=== PATIENT | male | born 1970 | race African-American/Black ===

== ENCOUNTER 2016-09-26 02:39 | Inpatient (IN) | payer OTHER ==
[~2016-09-26] VITALS: Ht 180.3 cm; Wt 131.8 kg
[~2016-09-26 02:39] MED LIST: ADVAIR 250/501 DISK IH; ADVAIR HFA120 INHAL1 IH; ASPIR-LOW81 MG PO; ASPIRIN81 M2 PO; AUGMENTIN875 MG PO; BACLOFEN10 MG PO; CALAN SR,COVER240 MG PO; CLARITIN,ALAVAR10 MG PO; CLONIDINE HCL0.1 MG PO; DAILY VALUE1 EACH PO; DICLOFENAC SODI75 MG PO; DOCUSATE SODIU100 MG PO; DULOXETINE HCL30 MG PO; ELIQUIS5 MG PO; GLUCOPHAGE500 MG PO; HYDROCHLOROTHIA25 MG PO; HYDROCODON-ACE1 EAC7 PO; IPRATROPIUM BRO15 ML BOTH NARES; ISORDIL,SORBITR40 M3 PO; LABETALOL HCL200 MG PO; LASIX20 MG PO; LISINOPRIL10 MG PO; LISINOPRIL40 MG PO; LO-DOSE ASPIRIN81 M1 PO; LOPRESSOR25 MG PO; LOPRESSOR50 MG PO; LYRICA75 MG PO; METAMUCIL0.52 GM PO; METFORMIN HCL500 MG PO; METHYLPREDNISOL32 MG PO; METOPROLOL TAR100 MG PO; METOPROLOL TART25 MG PO; MOTRIN400 MG PO; NITROSTAT0.4 MG SL; NOHOMEMEDS; NORCO 5/3251 TABLET PO; OMEPRAZOLE40 M1 PO; OXYCODONE-APAP1 EACH PO; PANTOPRAZOLE SO40 MG PO; PERCOCET 5/31 TABLET PO; PRAVASTATIN SOD20 MG PO; PRAVASTATIN SOD40 MG PO; PREDNISONE20 MG PO; PREDNISONE50 MG PO; PROPRANOLOL HC120 MG PO; PROTONIX40 MG PO; SINGULAIR10 MG PO; TRAMADOL HCL50 MG PO; TYLENOL EXTRA500 MG PO; TYLENOL WITH C1 EACH PO; VALIUM5 MG PO; VENTOLIN HFA18 GM IH; VERAPAMIL HCL240 MG PO; XANAX0.25 MG PO; ZOFRAN8 MG PO; ZYRTEC10 M3 PO
[2016-09-26 03:13] LABS: HEMATOCRIT 38.5 % (38.0-50.0); MCH 27.5 PG (29.0-34.0); MCHC 32.2 G/DL (30.0-36.0); MCV 85.4 FL (86-99); MEAN PLAT.VOLUME 10.6 uM^3 (9.0-12.4); PLATELET COUNT 331 K/uL (156-360); RBC DIS.WIDTH-CV 16.7 % (11.8-14.6); RBC DIS.WIDTH-SD 51.9 % (39-53); RED BLOOD COUNT 4.51 M/uL (4.00-5.50); WHITE BLOOD COUNT 5.7 K/uL (4.1-10.2)
[2016-09-26 03:26] LABS: CHLORIDE 105 mEq/L (99-109); POTASSIUM 3.7 mEq/L (3.7-5.4); SODIUM 138 mEq/L (136-147)
[2016-09-26 03:28] LABS: GLUCOSE 130 mg/dL (70-99)
[2016-09-26 03:30] LABS: ANION GAP 10 MEQ/L (2-14); TOTAL BILIRUBIN 0.9 mg/dL (0.0-1.0)
[2016-09-26 03:32] LABS: ALKALINE PHOSPHATASE 92 IU/L (3-129); GFR ESTIMATE (CALCULATED) > 59 mL/min/
[2016-09-26 03:33] LABS: UREA NITROGEN (BUN) 23 mg/dL (9-23)
[2016-09-26 03:35] LABS: LIPASE 48 U/L (1.0-51.0)
[2016-09-26 03:36] LABS: TROP-I INTERPRETATION NEGATIVE; TROPONIN-I 0.07 ng/mL (0.0-0.30)
[2016-09-26 04:06] LABS: INFLUENZA A VIRAL ANTIGEN NEGATIVE; INFLUENZA B VIRAL ANTIGEN NEGATIVE
[2016-09-26 04:52] LABS: ANISOCYTOSIS 2+; EOSINOPHIL (%) 4.2 % (0-5); EOSINOPHIL COUNT 0.2 K/uL (0-0.3); HEMATOLOGY COMMENT 1 REV; IMMATURE GRANULOCYTE (%) 0.2 % (0.0-0.7); IMMATURE GRANULOCYTE COUNT 0.1 K/uL; LYMPHOCYTE COUNT 1.6 K/uL (1.0-2.8); MACROCYTES 1+; MICROCYTOSIS 1+; MONOCYTE (%) 7.4 % (3-12); MONOCYTE COUNT 0.4 K/uL (0-0.8); NEUTROPHIL (%) 60.2 % (45-76); NEUTROPHIL COUNT 3.4 K/uL (1.8-6.4); OVALOCYTES 1+; PLAT.SUFFICIENCY ADEQUATE
[2016-09-26] MEDS ORDERED: ASPIR 8181 M1 PO (05:53)
[2016-09-26] MEDS ORDERED: XANAX0.25 MG PO (05:54)
[2016-09-26] MEDS ORDERED: CORICIDIN HBP1 EACH PO (05:56)
[2016-09-26] MEDS ORDERED: FUROSEMIDE20 MG PO (07:24)
[2016-09-26] MEDS ORDERED: ONE DAILY TABL1 EAC1 PO (07:24)
[2016-09-26] MEDS ORDERED: LEVEMIR FL100 UNIT/1 SC (07:24)
[2016-09-26 08:57] VITALS: BP 165/97
[2016-09-26 11:41] VITALS: BP 144/99
[2016-09-26 12:20] LABS: TROP-I INTERPRETATION NEGATIVE; TROPONIN-I 0.06 ng/mL (0.0-0.30)
[2016-09-26 18:16] LABS: INTERNAL CONTROL VALID? YES
[2016-09-26 18:45] LABS: TROP-I INTERPRETATION NEGATIVE; TROPONIN-I 0.08 ng/mL (0.0-0.30)
[2016-09-26 21:19] LABS: POINT-OF-CARE METER ID UU14162513
[2016-09-26 21:30] VITALS: BP 125/73
[2016-09-27 03:16] VITALS: BP 123/79
[2016-09-27 07:10] LABS: HEMATOCRIT 39.9 % (38.0-50.0); MCH 27.1 PG (29.0-34.0); MCHC 31.1 G/DL (30.0-36.0); MCV 87.3 FL (86-99); MEAN PLAT.VOLUME 10.8 uM^3 (9.0-12.4); PLATELET COUNT 316 K/uL (156-360); RBC DIS.WIDTH-SD 53.6 % (39-53); RED BLOOD COUNT 4.57 M/uL (4.00-5.50); WHITE BLOOD COUNT 6.4 K/uL (4.1-10.2)
[2016-09-27 07:16] LABS: EOSINOPHIL (%) 1.6 % (0-5); EOSINOPHIL COUNT 0.1 K/uL (0-0.3); IMMATURE GRANULOCYTE (%) 0.2 % (0.0-0.7); LYMPHOCYTE COUNT 1.7 K/uL (1.0-2.8); MONOCYTE (%) 7.8 % (3-12); MONOCYTE COUNT 0.5 K/uL (0-0.8); NEUTROPHIL COUNT 4.1 K/uL (1.8-6.4)
[2016-09-27 07:33] LABS: ANION GAP 8 MEQ/L (2-14); CHLORIDE 100 MEQ/L (99-109); GFR ESTIMATE (CALCULATED) > 59 mL/min/; POTASSIUM 3.9 MEQ/L (3.7-5.4); SAMPLE HEMOLYSIS CHECK 0; SAMPLE ICTERIC CHECK 0; SAMPLE LIPEMIA CHECK 0; SODIUM 137 MEQ/L (136-147); UREA NITROGEN (BUN) 21 mg/dL (9-23)
[2016-09-27 07:35] LABS: GLUCOSE 79 mg/dL (70-99)
[2016-09-27 07:39] LABS: TROP-I INTERPRETATION NEGATIVE; TROPONIN-I 0.08 ng/mL (0.0-0.30)
[2016-09-27 08:16] VITALS: BP 151/86
[2016-09-27 08:40] LABS: POINT-OF-CARE METER ID UU14162513
[2016-09-27 12:12] VITALS: BP 99/63
[2016-09-27 12:58] LABS: POINT-OF-CARE METER ID UU14162513
[2016-09-27 16:18] VITALS: BP 117/69
[2016-09-27 17:37] LABS: POINT-OF-CARE METER ID UU14162513
[2016-09-27 21:08] VITALS: BP 110/71
[2016-09-27 23:39] VITALS: BP 104/58
[2016-09-28 04:13] VITALS: BP 125/71
[2016-09-28 07:26] VITALS: BP 113/72
[2016-09-28 12:33] VITALS: BP 95/57
[2016-09-28] MEDS ORDERED: ELIQUIS5 MG PO (16:12)
[2016-09-28 16:37] VITALS: BP 94/52
[2016-09-28 20:08] VITALS: BP 90/52
[2016-09-28 23:35] VITALS: BP 122/77
[2016-09-29 04:49] VITALS: BP 125/74
[2016-09-29 05:33] LABS: HEMATOCRIT 37.3 % (38.0-50.0); MCH 27.8 PG (29.0-34.0); MCHC 32.2 G/DL (30.0-36.0); MCV 86.3 FL (86-99); MEAN PLAT.VOLUME 11.8 uM^3 (9.0-12.4); PLATELET COUNT 323 K/uL (156-360); RBC DIS.WIDTH-CV 16.2 % (11.8-14.6); RBC DIS.WIDTH-SD 51.5 % (39-53); RED BLOOD COUNT 4.32 M/uL (4.00-5.50); WHITE BLOOD COUNT 5.8 K/uL (4.1-10.2)
[2016-09-29 05:41] LABS: POINT-OF-CARE METER ID UU13113717
[2016-09-29 08:30] VITALS: BP 139/87
[2016-09-29 11:30] VITALS: BP 131/77
[2016-09-29 11:37] LABS: POINT-OF-CARE METER ID UU13113717
[2016-09-29 12:20] VITALS: BP 131/77
[2016-09-29] MEDS ORDERED: PRAVASTATIN SOD40 MG PO (12:33)
[2016-09-29] MEDS ORDERED: FLONASE16 G1 BOTH NARES (12:33)
[2016-09-29] MEDS ORDERED: BENTYL20 MG PO (12:33)
[2016-09-29] MEDS ORDERED: FUROSEMIDE40 MG PO (12:33)
[2016-09-29] MEDS ORDERED: CLARITIN,ALAVAR10 MG PO (12:34)
[2016-09-29] MEDS ORDERED: MAALOX ADVANCE355 ML PO (12:34)
[2016-09-30 12:51] LABS: POC NON-PRINT COM 1 ND
== END 2016-09-29 14:07 | disposition home or self-care (01) | DRG 292 ==
LOC: EME 02:39 → EDOF 06:35 → 5WEST 06:35 → 3EAST 09-27 21:06
PROVIDERS: Emergency Medicine; Hospitalist; Internal Medicine; Internal Medicine Cardiovascular Disease; Specialist
DX: I50.33 Acute on chronic diastolic (congestive) heart failure (principal); I13.0 Hypertensive heart and chronic kidney disease with heart failure and stage 1 through stage 4 chronic kidney disease, or unspecified chronic kidney disease; I42.2 Other hypertrophic cardiomyopathy; K56.7 Ileus, unspecified; J90 Pleural effusion, not elsewhere classified; K92.1 Melena; Z68.42 Body mass index [BMI] 45.0-49.9, adult; G47.33 Obstructive sleep apnea (adult) (pediatric); I27.2 Other secondary pulmonary hypertension; F32.9 Major depressive disorder, single episode, unspecified; E11.9 Type 2 diabetes mellitus without complications; R07.9 Chest pain, unspecified; R10.9 Unspecified abdominal pain; J44.9 Chronic obstructive pulmonary disease, unspecified; K21.9 Gastro-esophageal reflux disease without esophagitis; G89.29 Other chronic pain; F12.90 Cannabis use, unspecified, uncomplicated; N18.9 Chronic kidney disease, unspecified; E66.01 Morbid (severe) obesity due to excess calories; I48.91 Unspecified atrial fibrillation; I12.9 Hypertensive chronic kidney disease with stage 1 through stage 4 chronic kidney disease, or unspecified chronic kidney disease; E78.5 Hyperlipidemia, unspecified; Z91.048 Other nonmedicinal substance allergy status; Z88.1 Allergy status to other antibiotic agents; E87.70 Fluid overload, unspecified; D64.9 Anemia, unspecified
CPT/HCPCS: 71020; 71250; 74020; 74176; 80048; 80053; 82150; 82272; 82607; 82728; 82948; 83690; 83735; 83880; 84443; 84466; 84484; 85025; 85027; 87502; 93005; 94640; 94640 76; 99202; 99281; 99285; G0378; J1170; J1815; J1885; J1940; J2765; J3010

== ENCOUNTER 2016-10-10 21:53 | Emergency (ER) | payer OTHER ==
[~2016-10-10] VITALS: Ht 175.3 cm; Wt 133.0 kg
[~2016-10-10 21:53] MED LIST changes: +ASPIR 8181 M1 PO; +BENTYL20 MG PO; +CORICIDIN HBP1 EACH PO; +FLONASE16 G1 BOTH NARES; +FUROSEMIDE20 MG PO; +FUROSEMIDE40 MG PO; +LEVEMIR FL100 UNIT/1 SC; +MAALOX ADVANCE355 ML PO; +ONE DAILY TABL1 EAC1 PO
[2016-10-10 22:22] LABS: HEMATOCRIT 39.3 % (38.0-50.0); MCH 27.9 PG (29.0-34.0); MCHC 32.6 G/DL (30.0-36.0); MCV 85.8 FL (86-99); MEAN PLAT.VOLUME 10.6 uM^3 (9.0-12.4); PLATELET COUNT 274 K/uL (156-360); RBC DIS.WIDTH-CV 15.8 % (11.8-14.6); RBC DIS.WIDTH-SD 48.2 % (39-53); RED BLOOD COUNT 4.58 M/uL (4.00-5.50); WHITE BLOOD COUNT 4.8 K/uL (4.1-10.2)
[2016-10-10 22:31] LABS: CHLORIDE 102 mEq/L (99-109); POTASSIUM 4.3 mEq/L (3.7-5.4); SODIUM 138 mEq/L (136-147)
[2016-10-10 22:32] LABS: GLUCOSE 130 mg/dL (70-99)
[2016-10-10 22:34] LABS: ANION GAP 9 MEQ/L (2-14)
[2016-10-10 22:36] LABS: GFR ESTIMATE (CALCULATED) > 59 mL/min/
[2016-10-10 22:37] LABS: UREA NITROGEN (BUN) 17 mg/dL (9-23)
[2016-10-10 22:43] LABS: TROP-I INTERPRETATION NEGATIVE; TROPONIN-I 0.06 ng/mL (0.0-0.30)
[2016-10-10 23:24] LABS: LIPASE 35 U/L (1.0-51.0)
[2016-10-11 00:49] LABS: INFLUENZA A VIRAL ANTIGEN POSITIVE; INFLUENZA B VIRAL ANTIGEN NEGATIVE
[2016-10-11] MEDS ORDERED: TAMIFLU75 MG PO ×2 (00:59→22:44)
[2016-10-11] MEDS ORDERED: VENTOLIN HFA18 GM IH (01:00)
[2016-10-11 01:23] LABS: TROP-I INTERPRETATION NEGATIVE; TROPONIN-I 0.06 ng/mL (0.0-0.30)
[2016-10-11 01:58] VITALS: BP 151/102
[2016-10-11] MEDS ORDERED: PRAVASTATIN SOD40 MG PO (22:42)
[2016-10-11] MEDS ORDERED: FLONASE16 G1 BOTH NARES (22:43)
[2016-10-11] MEDS ORDERED: CLARITIN,ALAVAR10 MG PO (22:43)
== END 2016-10-11 01:58 | disposition home or self-care (01) ==
LOC: EME 21:53
PROVIDERS: Emergency Medicine
DX: J10.1 Influenza due to other identified influenza virus with other respiratory manifestations (principal); N18.9 Chronic kidney disease, unspecified; I10 Essential (primary) hypertension; E11.9 Type 2 diabetes mellitus without complications; I50.9 Heart failure, unspecified; Z88.6 Allergy status to analgesic agent
CPT/HCPCS: 71020; 80048; 83690; 84484; 85027; 87502; 93005; 94640; 99281; 99284

== ENCOUNTER 2016-10-11 18:23 | Inpatient (IN) | payer OTHER ==
[~2016-10-11] VITALS: Ht 180.3 cm; Wt 117.0 kg
[~2016-10-11 18:23] MED LIST changes: +TAMIFLU75 MG PO
[2016-10-11 21:41] LABS: CHLORIDE 101 mEq/L (99-109); POTASSIUM 4.4 mEq/L (3.7-5.4); SODIUM 137 mEq/L (136-147)
[2016-10-11 21:42] LABS: HEMATOCRIT 39.9 % (38.0-50.0); MCH 27.5 PG (29.0-34.0); MCHC 33.1 G/DL (30.0-36.0); MCV 83.1 FL (86-99); MEAN PLAT.VOLUME 10.5 uM^3 (9.0-12.4); PLATELET COUNT 243 K/uL (156-360); RBC DIS.WIDTH-CV 15.9 % (11.8-14.6); RBC DIS.WIDTH-SD 47.5 % (39-53); WHITE BLOOD COUNT 6.3 K/uL (4.1-10.2)
[2016-10-11 21:43] LABS: GLUCOSE 112 mg/dL (70-99)
[2016-10-11 21:44] LABS: ANION GAP 11 MEQ/L (2-14)
[2016-10-11 21:47] LABS: GFR ESTIMATE (CALCULATED) > 59 mL/min/
[2016-10-11 21:48] LABS: UREA NITROGEN (BUN) 15 mg/dL (9-23)
[2016-10-11 21:54] LABS: TROP-I INTERPRETATION NEGATIVE
[2016-10-11] MEDS ORDERED: PRAVASTATIN SOD40 MG PO (22:42)
[2016-10-11] MEDS ORDERED: CLARITIN,ALAVAR10 MG PO (22:43)
[2016-10-11] MEDS ORDERED: FLONASE16 G1 BOTH NARES (22:43)
[2016-10-11] MEDS ORDERED: TAMIFLU75 MG PO (22:44)
[2016-10-12 02:44] VITALS: BP 147/95
[2016-10-12 04:21] LABS: TROP-I INTERPRETATION NEGATIVE; TROPONIN-I 0.08 ng/mL (0.0-0.30)
[2016-10-12 04:24] LABS: HDL CHOLESTEROL 24 MG/DL (Desirable>=40); LDL CHOLESTEROL 100 mg/dL (Desirable<100); NON-HDL CHOLESTEROL 120 mg/dL (Desirable<160); TOTAL CHOLESTEROL 144 mg/dL (Desirable<200); TRIGLYCERIDES 102 MG/DL (Normal: <150)
[2016-10-12 04:43] VITALS: BP 146/88
[2016-10-12 06:44] LABS: Estimated Average Glucose 151 mg/dL (70-123); HEMOGLOBIN A1c (GLYCOHEMOGLOB) 6.9 % HGB (Below 5.7)
[2016-10-12 08:33] LABS: POINT-OF-CARE METER ID UU14162513
[2016-10-12 10:08] LABS: TROP-I INTERPRETATION NEGATIVE; TROPONIN-I 0.07 ng/mL (0.0-0.30)
[2016-10-12 11:17] LABS: POINT-OF-CARE METER ID UU14162513
[2016-10-12 11:40] LABS: HEMATOCRIT 40.6 % (38.0-50.0); MCH 27.2 PG (29.0-34.0); MCHC 31.5 G/DL (30.0-36.0); MCV 86.2 FL (86-99); MEAN PLAT.VOLUME 11.1 uM^3 (9.0-12.4); PLATELET COUNT 259 K/uL (156-360); RBC DIS.WIDTH-CV 16.2 % (11.8-14.6); RBC DIS.WIDTH-SD 50.4 % (39-53); RED BLOOD COUNT 4.71 M/uL (4.00-5.50); WHITE BLOOD COUNT 5.3 K/uL (4.1-10.2)
[2016-10-12 12:05] LABS: ANION GAP 9 MEQ/L (2-14); CHLORIDE 99 MEQ/L (99-109); POTASSIUM 3.8 MEQ/L (3.7-5.4); SAMPLE HEMOLYSIS CHECK 0; SAMPLE ICTERIC CHECK 0; SAMPLE LIPEMIA CHECK 0; SODIUM 135 MEQ/L (136-147)
[2016-10-12 12:10] LABS: GFR ESTIMATE (CALCULATED) > 59 mL/min/; GLUCOSE 141 mg/dL (70-99); UREA NITROGEN (BUN) 15 mg/dL (9-23)
[2016-10-12 12:52] VITALS: BP 128/83
[2016-10-12 15:13] LABS: ADD MIUA? YES; BILIRUBIN NEGATIVE; BLOOD NEGATIVE; COLOR YELLOW ((YELLOW)); GLUCOSE (STRIP) NEGATIVE; KETONES NEGATIVE; LEUKOCYTES NEGATIVE; NITRITE NEGATIVE; PROTEIN (STRIP) 100; SPECIFIC GRAVITY 1.012 (1.000-1.030)
[2016-10-12 15:30] LABS: BACTERIA NONE SEEN /HPF; EPITHELIAL CELLS NONE SEEN /HPF; HYALINE CASTS 0-5 /LPF; MUCUS TRACE /LPF; RED BLOOD CELLS 15-20 /HPF (0-5); UCUL ADDED? NO; WHITE BLOOD CELLS 0-5 /HPF (0-5)
[2016-10-12 20:00] VITALS: BP 98/64
[2016-10-12 22:04] VITALS: BP 112/78
[2016-10-12 23:52] VITALS: BP 106/80
[2016-10-13 04:44] VITALS: BP 118/74
[2016-10-13 06:37] LABS: HEMATOCRIT 33.9 % (38.0-50.0); MCH 27.8 PG (29.0-34.0); MCHC 32.2 G/DL (30.0-36.0); MCV 86.5 FL (86-99); MEAN PLAT.VOLUME 11.6 uM^3 (9.0-12.4); PLATELET COUNT 221 K/uL (156-360); RBC DIS.WIDTH-CV 16.3 % (11.8-14.6); RED BLOOD COUNT 3.92 M/uL (4.00-5.50); WHITE BLOOD COUNT 4.1 K/uL (4.1-10.2)
[2016-10-13 07:14] LABS: ALKALINE PHOSPHATASE 70 IU/L (3-129); ANION GAP 8 MEQ/L (2-14); CHLORIDE 100 MEQ/L (99-109); GFR ESTIMATE (CALCULATED) > 59 mL/min/; SAMPLE HEMOLYSIS CHECK 0; SAMPLE ICTERIC CHECK 0; SAMPLE LIPEMIA CHECK 0; SODIUM 134 MEQ/L (136-147); TOTAL BILIRUBIN 1.6 MG/DL (0.0-1.0); UREA NITROGEN (BUN) 18 mg/dL (9-23)
[2016-10-13 07:22] LABS: GLUCOSE 75 mg/dL (70-99); POTASSIUM 4.8 MEQ/L (3.7-5.4)
[2016-10-13 07:44] VITALS: BP 160/98
[2016-10-13 07:56] LABS: POINT-OF-CARE METER ID UU13113698
[2016-10-13 11:00] VITALS: BP 125/75
[2016-10-13 12:28] LABS: POINT-OF-CARE METER ID UU13113698
[2016-10-13 15:43] VITALS: BP 134/84
[2016-10-13 16:07] LABS: POINT-OF-CARE METER ID UU13113698
[2016-10-13 20:30] VITALS: BP 140/72
[2016-10-13 23:08] VITALS: BP 142/86
[2016-10-14 04:04] VITALS: BP 136/98
[2016-10-14 07:08] LABS: HEMATOCRIT 38.3 % (38.0-50.0); MCH 26.9 PG (29.0-34.0); MCHC 31.1 G/DL (30.0-36.0); MCV 86.7 FL (86-99); PLATELET COUNT 261 K/uL (156-360); RBC DIS.WIDTH-CV 16.1 % (11.8-14.6); RBC DIS.WIDTH-SD 50.5 % (39-53); RED BLOOD COUNT 4.42 M/uL (4.00-5.50); WHITE BLOOD COUNT 3.6 K/uL (4.1-10.2)
[2016-10-14 07:19] LABS: EOSINOPHIL (%) 3.1 % (0-5); EOSINOPHIL COUNT 0.1 K/uL (0-0.3); IMMATURE GRANULOCYTE (%) 0.3 % (0.0-0.7); LYMPHOCYTE COUNT 1.2 K/uL (1.0-2.8); MONOCYTE (%) 11.7 % (3-12); MONOCYTE COUNT 0.4 K/uL (0-0.8); NEUTROPHIL (%) 49.7 % (45-76); NEUTROPHIL COUNT 1.8 K/uL (1.8-6.4)
[2016-10-14 07:39] LABS: ANION GAP 8 MEQ/L (2-14); CHLORIDE 101 MEQ/L (99-109); GFR ESTIMATE (CALCULATED) > 59 mL/min/; POTASSIUM 4.2 MEQ/L (3.7-5.4); SAMPLE HEMOLYSIS CHECK 0; SAMPLE ICTERIC CHECK 0; SAMPLE LIPEMIA CHECK 0; SODIUM 135 MEQ/L (136-147); UREA NITROGEN (BUN) 17 mg/dL (9-23)
[2016-10-14 07:44] LABS: POINT-OF-CARE USER ID NUTSLF44
[2016-10-14 07:55] LABS: GLUCOSE 107 mg/dL (70-99)
[2016-10-14 09:20] VITALS: BP 173/101
[2016-10-14 11:51] LABS: POINT-OF-CARE USER ID NUTSLF44
[2016-10-14 12:37] VITALS: BP 174/84
[2016-10-14 16:22] VITALS: BP 189/111
[2016-10-14 18:03] VITALS: BP 156/110
[2016-10-14 19:48] VITALS: BP 163/98
[2016-10-15 00:20] VITALS: BP 189/107
[2016-10-15 02:09] VITALS: BP 168/102
[2016-10-15 04:18] VITALS: BP 140/89
[2016-10-15 06:52] LABS: BASOPHIL COUNT 0.1 K/uL (0-0.1); EOSINOPHIL (%) 1.6 % (0-5); EOSINOPHIL COUNT 0.1 K/uL (0-0.3); IMMATURE GRANULOCYTE (%) 0.2 % (0.0-0.7); LYMPHOCYTE COUNT 1.7 K/uL (1.0-2.8); MCH 28.3 PG (29.0-34.0); MCHC 32.7 G/DL (30.0-36.0); MCV 86.7 FL (86-99); MEAN PLAT.VOLUME 11.3 uM^3 (9.0-12.4); MONOCYTE (%) 11.5 % (3-12); MONOCYTE COUNT 0.5 K/uL (0-0.8); NEUTROPHIL (%) 46.1 % (45-76); NRBC (%) 0.6 /100 WBC (0-0); PLATELET COUNT 265 K/uL (156-360); RBC DIS.WIDTH-CV 15.9 % (11.8-14.6); RBC DIS.WIDTH-SD 49.9 % (39-53); RED BLOOD COUNT 4.27 M/uL (4.00-5.50); WHITE BLOOD COUNT 4.4 K/uL (4.1-10.2)
[2016-10-15 07:24] LABS: ANION GAP 9 MEQ/L (2-14); CHLORIDE 103 MEQ/L (99-109); GFR ESTIMATE (CALCULATED) > 59 mL/min/; GLUCOSE 116 mg/dL (70-99); POTASSIUM 4.4 MEQ/L (3.7-5.4); SAMPLE HEMOLYSIS CHECK 0; SAMPLE ICTERIC CHECK 0; SAMPLE LIPEMIA CHECK 0; SODIUM 138 MEQ/L (136-147); UREA NITROGEN (BUN) 13 mg/dL (9-23)
[2016-10-15 07:40] VITALS: BP 129/79
[2016-10-15 08:02] LABS: POINT-OF-CARE METER ID UU14174216
[2016-10-15 11:45] VITALS: BP 123/83
[2016-10-15 12:09] LABS: POINT-OF-CARE METER ID UU14174216
[2016-10-15] MEDS ORDERED: LEVETIRACETAM500 MG PO (12:24)
[2016-10-15] MEDS ORDERED: EXTRA STRENGTH500 M1 PO (21:17)
== END 2016-10-15 13:40 | disposition home or self-care (01) | DRG 100 ==
LOC: EME 18:23 → EDOF 10-12 01:28 → 5WEST 10-12 02:22 → 4EAST 10-12 11:27 → 5WEST 10-12 11:27 → 4EAST 10-12 11:57
PROVIDERS: Internal Medicine; Nurse Practitioner Family; Physician Assistant
PROC: 5A09357 Assistance with Respiratory Ventilation, Less than 24 Consecutive Hours, Continuous Positive Airway Pressure (ICD-10-PCS; principal; 2016-10-12)
DX: G40.909 Epilepsy, unspecified, not intractable, without status epilepticus (principal); G93.41 Metabolic encephalopathy; I13.0 Hypertensive heart and chronic kidney disease with heart failure and stage 1 through stage 4 chronic kidney disease, or unspecified chronic kidney disease; I50.32 Chronic diastolic (congestive) heart failure; I42.2 Other hypertrophic cardiomyopathy; I48.92 Unspecified atrial flutter; I48.2 Chronic atrial fibrillation; J10.1 Influenza due to other identified influenza virus with other respiratory manifestations; J44.9 Chronic obstructive pulmonary disease, unspecified; E11.22 Type 2 diabetes mellitus with diabetic chronic kidney disease; G47.33 Obstructive sleep apnea (adult) (pediatric); R07.89 Other chest pain; N18.9 Chronic kidney disease, unspecified; I27.2 Other secondary pulmonary hypertension; R10.31 Right lower quadrant pain; R10.32 Left lower quadrant pain; E78.5 Hyperlipidemia, unspecified; E66.9 Obesity, unspecified; Z68.35 Body mass index [BMI] 35.0-35.9, adult; Z86.74 Personal history of sudden cardiac arrest; Z79.01 Long term (current) use of anticoagulants; Z79.82 Long term (current) use of aspirin; Z88.1 Allergy status to other antibiotic agents; Z88.5 Allergy status to narcotic agent
CPT/HCPCS: 70450; 71010; 71020; 72125; 73030; 74176; 76705; 80048; 80053; 80061; 81003; 82803; 82948; 83036; 83605; 83690; 84484; 85025; 85027; 87502; 93005; 94640; 94640 76; 94660; 94799; 95819; 99202; 99281; 99284; 99285; J0360; J1815; J1885; J1953; J7030; J7050

== ENCOUNTER 2016-10-15 15:04 | Emergency (ER) | payer OTHER ==
[~2016-10-15] VITALS: Ht 180.3 cm; Wt 139.0 kg
[~2016-10-15 15:04] MED LIST changes: +LEVETIRACETAM500 MG PO
[2016-10-15 16:45] LABS: HEMATOCRIT 38.4 % (38.0-50.0); MCH 27.2 PG (29.0-34.0); MCHC 31.5 G/DL (30.0-36.0); MCV 86.3 FL (86-99); MEAN PLAT.VOLUME 11.2 uM^3 (9.0-12.4); PLATELET COUNT 285 K/uL (156-360); RBC DIS.WIDTH-CV 16.1 % (11.8-14.6); RBC DIS.WIDTH-SD 49.7 % (39-53); RED BLOOD COUNT 4.45 M/uL (4.00-5.50); WHITE BLOOD COUNT 5.5 K/uL (4.1-10.2)
[2016-10-15 16:53] LABS: INTER. NORMALIZED RATIO 1.3; PTT 27.7 (25-32)
[2016-10-15 16:55] LABS: CHLORIDE 105 mEq/L (99-109); POTASSIUM 4.4 mEq/L (3.7-5.4); SODIUM 137 mEq/L (136-147)
[2016-10-15 16:57] LABS: GLUCOSE 156 mg/dL (70-99)
[2016-10-15 16:59] LABS: ANION GAP 10 MEQ/L (2-14)
[2016-10-15 17:01] LABS: ALKALINE PHOSPHATASE 93 IU/L (3-129); GFR ESTIMATE (CALCULATED) > 59 mL/min/
[2016-10-15 17:02] LABS: UREA NITROGEN (BUN) 15 mg/dL (9-23)
[2016-10-15 17:03] LABS: DIRECT BILIRUBIN 0.4 mg/dL (0.0-0.3)
[2016-10-15 17:04] LABS: LIPASE 23 U/L (1.0-51.0)
[2016-10-15 17:08] LABS: TROP-I INTERPRETATION NEGATIVE; TROPONIN-I 0.03 ng/mL (0.0-0.30)
[2016-10-15 20:20] LABS: ADD MIUA? YES; BILIRUBIN SMALL; BLOOD NEGATIVE; COLOR DK YELLOW ((YELLOW)); GLUCOSE (STRIP) NEGATIVE; KETONES NEGATIVE; LEUKOCYTES NEGATIVE; NITRITE NEGATIVE; PH, URINE 5.5 (5-8); PROTEIN (STRIP) 100
[2016-10-15 20:53] LABS: AMPHETAMINE NEGATIVE (500 ng/mL); BARBITURATES NEGATIVE (200 ng/mL); BENZODIAZEPINES PRESUMPTIVE POSITIVE (150 ng/mL); COCAINE NEGATIVE (150 ng/mL); METHADONE NEGATIVE (200 ng/mL); METHAMPHETAMINE NEGATIVE (500 ng/mL); OPIATES (MORPHINE) PRESUMPTIVE POSITIVE (100 ng/mL); OXYCODONE PRESUMPTIVE POSITIVE (100 ng/mL); PHENCYCLIDINE PRESUMPTIVE POSITIVE (25 ng/mL); PROPOXYPHENE NEGATIVE (300 ng/mL); THC CANNABINOIDS PRESUMPTIVE POSITIVE (50 ng/mL); TRICYCLIC ANTIDEPRESSANTS NEGATIVE (300 ng/mL)
[2016-10-15 20:54] LABS: INTERNAL CONTROLS VALID? YES
[2016-10-15 20:55] LABS: ADD MEDTOX COMMENT Y
[2016-10-15] MEDS ORDERED: EXTRA STRENGTH500 M1 PO (21:17)
[2016-10-15 21:21] LABS: BACTERIA NONE SEEN /HPF; EPITHELIAL CELLS NONE SEEN /HPF; MUCUS NONE SEEN /LPF; RED BLOOD CELLS 0-5 /HPF (0-5); UCUL ADDED? NO; WHITE BLOOD CELLS 0-5 /HPF (0-5)
[2016-10-15 21:31] VITALS: BP 159/95
[2016-10-15 21:43] LABS: BENZODIAZEPINES, URINE SCREEN POSITIVE (200 ng/mL)
== END 2016-10-15 21:41 | disposition home or self-care (01) ==
LOC: EME 15:04
PROVIDERS: Emergency Medicine
DX: S09.90XA Unspecified injury of head, initial encounter (principal); G40.909 Epilepsy, unspecified, not intractable, without status epilepticus; I48.2 Chronic atrial fibrillation; F19.10 Other psychoactive substance abuse, uncomplicated; W10.1XXA Fall (on)(from) sidewalk curb, initial encounter; J45.909 Unspecified asthma, uncomplicated; E11.9 Type 2 diabetes mellitus without complications; J44.9 Chronic obstructive pulmonary disease, unspecified; I10 Essential (primary) hypertension; G47.30 Sleep apnea, unspecified; K21.9 Gastro-esophageal reflux disease without esophagitis; Z79.82 Long term (current) use of aspirin
CPT/HCPCS: 70450; 71010; 74177; 80048 91; 80076; 81003; 83690; 84484; 84999; 85027; 85610; 85730; 93005; 99281; 99285; J1953; J2405; J3010; J7030; J7050

== ENCOUNTER 2016-10-16 23:27 | Emergency (ER) | payer OTHER ==
[~2016-10-16] VITALS: Ht 180.3 cm; Wt 131.8 kg
[~2016-10-16 23:27] MED LIST changes: +EXTRA STRENGTH500 M1 PO
[2016-10-16 23:50] LABS: HEMATOCRIT 37.7 % (38.0-50.0); MCH 27.4 PG (29.0-34.0); MCHC 32.4 G/DL (30.0-36.0); MCV 84.5 FL (86-99); MEAN PLAT.VOLUME 10.5 uM^3 (9.0-12.4); PLATELET COUNT 297 K/uL (156-360); RBC DIS.WIDTH-CV 15.8 % (11.8-14.6); RBC DIS.WIDTH-SD 47.4 % (39-53); RED BLOOD COUNT 4.46 M/uL (4.00-5.50); WHITE BLOOD COUNT 7.6 K/uL (4.1-10.2)
[2016-10-16 23:56] LABS: CHLORIDE 101 mEq/L (99-109); SODIUM 138 mEq/L (136-147)
[2016-10-16 23:59] LABS: ANION GAP 11 MEQ/L (2-14)
[2016-10-17 00:02] LABS: ALKALINE PHOSPHATASE 99 IU/L (3-129); GFR ESTIMATE (CALCULATED) > 59 mL/min/
[2016-10-17 00:03] LABS: UREA NITROGEN (BUN) 13 mg/dL (9-23)
[2016-10-17 00:05] LABS: GLUCOSE 103 mg/dL (70-99); LIPASE 31 U/L (1.0-51.0)
[2016-10-17] MEDS ORDERED: MIRALAX255 GM PO (05:41)
[2016-10-17] MEDS ORDERED: PHENERGAN-CODE120 ML PO (05:41)
[2016-10-17] MEDS ORDERED: GAS-X80 MG PO (05:41)
[2016-10-17 06:54] VITALS: BP 132/97
== END 2016-10-17 06:55 | disposition home or self-care (01) ==
LOC: EME 23:27
DX: R10.9 Unspecified abdominal pain (principal); R06.00 Dyspnea, unspecified; R56.9 Unspecified convulsions; J45.909 Unspecified asthma, uncomplicated; E11.9 Type 2 diabetes mellitus without complications; J44.9 Chronic obstructive pulmonary disease, unspecified; I10 Essential (primary) hypertension; K21.9 Gastro-esophageal reflux disease without esophagitis; G47.30 Sleep apnea, unspecified; Z79.82 Long term (current) use of aspirin
CPT/HCPCS: 80053; 81003; 83690; 85027; 99281; 99284; Q0169

== ENCOUNTER 2017-01-07 04:53 | Emergency (ER) | payer OTHER ==
[~2017-01-07] VITALS: Ht 180.3 cm; Wt 131.8 kg
[~2017-01-07 04:53] MED LIST changes: +GAS-X80 MG PO; +MIRALAX255 GM PO; +PHENERGAN-CODE120 ML PO
[2017-01-07 05:45] LABS: HEMATOCRIT 38.1 % (38.0-50.0); MCH 26.1 PG (29.0-34.0); MCHC 31.8 G/DL (30.0-36.0); MCV 82.3 FL (86-99); MEAN PLAT.VOLUME 10.2 uM^3 (9.0-12.4); PLATELET COUNT 375 K/uL (156-360); RBC DIS.WIDTH-CV 17.1 % (11.8-14.6); RBC DIS.WIDTH-SD 50.1 % (39-53); RED BLOOD COUNT 4.63 M/uL (4.00-5.50); WHITE BLOOD COUNT 5.1 K/uL (4.1-10.2)
[2017-01-07 05:46] LABS: CHLORIDE 105 mEq/L (99-109); POTASSIUM 3.1 mEq/L (3.7-5.4); SODIUM 138 mEq/L (136-147)
[2017-01-07 05:48] LABS: GLUCOSE 180 mg/dL (70-99)
[2017-01-07 05:50] LABS: ANION GAP 12 MEQ/L (2-14)
[2017-01-07 05:52] LABS: ALKALINE PHOSPHATASE 102 IU/L (3-129); GFR ESTIMATE (CALCULATED) > 59 mL/min/
[2017-01-07 05:53] LABS: UREA NITROGEN (BUN) 13 mg/dL (9-23)
[2017-01-07 06:03] LABS: ADD MIUA? YES; BILIRUBIN NEGATIVE; BLOOD NEGATIVE; COLOR YELLOW ((YELLOW)); GLUCOSE (STRIP) NEGATIVE; KETONES NEGATIVE; LEUKOCYTES NEGATIVE; NITRITE NEGATIVE; PROTEIN (STRIP) >=500; SPECIFIC GRAVITY 1.023 (1.000-1.030)
[2017-01-07 06:06] LABS: BACTERIA NONE SEEN /HPF; EPITHELIAL CELLS NONE SEEN /HPF; HYALINE CASTS 0-5 /LPF; MUCUS TRACE /LPF; RED BLOOD CELLS 0-5 /HPF (0-5); UCUL ADDED? NO; WHITE BLOOD CELLS 0-5 /HPF (0-5)
[2017-01-07 07:24] VITALS: BP 141/99
[2017-01-07] MEDS ORDERED: DAILY VITE1 EAC1 PO (14:56)
[2017-01-07] MEDS ORDERED: COLACE100 MG PO (14:56)
[2017-01-07] MEDS ORDERED: LIDODERM 5% P1 PATCH TD (14:57)
== END 2017-01-07 07:33 | disposition home or self-care (01) ==
LOC: EME 04:53
DX: K59.00 Constipation, unspecified (principal); I10 Essential (primary) hypertension; E11.9 Type 2 diabetes mellitus without complications; Z79.4 Long term (current) use of insulin; J44.9 Chronic obstructive pulmonary disease, unspecified; J45.909 Unspecified asthma, uncomplicated; Z79.01 Long term (current) use of anticoagulants; Z79.82 Long term (current) use of aspirin; Z90.49 Acquired absence of other specified parts of digestive tract; F17.200 Nicotine dependence, unspecified, uncomplicated
CPT/HCPCS: 74000; 74177; 80053; 81003; 83605; 85027; 93005; 99281; 99284; J2405

== ENCOUNTER 2017-01-07 11:03 | Inpatient (IN) | payer OTHER ==
[~2017-01-07] VITALS: Ht 180.3 cm; Wt 136.9 kg
[2017-01-07 13:01] LABS: EOSINOPHIL (%) 0.4 % (0-5); HEMATOCRIT 41.6 % (38.0-50.0); IMMATURE GRANULOCYTE (%) 0.4 % (0.0-0.7); INSTRUMENT ABS NEUTROPHIL CT 9.7 K/uL; LYMPHOCYTE COUNT 0.7 K/uL (1.0-2.8); MCH 26.1 PG (29.0-34.0); MCHC 31.3 G/DL (30.0-36.0); MCV 83.5 FL (86-99); MEAN PLAT.VOLUME 10.3 uM^3 (9.0-12.4); MONOCYTE (%) 6.1 % (3-12); MONOCYTE COUNT 0.7 K/uL (0-0.8); NEUTROPHIL (%) 86.7 % (45-76); NEUTROPHIL COUNT 9.7 K/uL (1.8-6.4); PLATELET COUNT 399 K/uL (156-360); RBC DIS.WIDTH-CV 17.5 % (11.8-14.6); RBC DIS.WIDTH-SD 52.4 % (39-53); RED BLOOD COUNT 4.98 M/uL (4.00-5.50); WHITE BLOOD COUNT 11.1 K/uL (4.1-10.2)
[2017-01-07 13:11] LABS: INTER. NORMALIZED RATIO 1.2; PROTHROMBIN TIME 12.2 (9.2-11.2); PTT 21.7 (25-32)
[2017-01-07 13:30] LABS: TROP-I INTERPRETATION NEGATIVE; TROPONIN-I 0.06 ng/mL (0.0-0.30)
[2017-01-07 13:39] LABS: CHLORIDE 104 mEq/L (99-109); POTASSIUM 3.5 mEq/L (3.7-5.4); SODIUM 139 mEq/L (136-147)
[2017-01-07 13:41] LABS: GLUCOSE 140 mg/dL (70-99)
[2017-01-07 13:42] LABS: ANION GAP 13 MEQ/L (2-14)
[2017-01-07 13:43] LABS: TOTAL BILIRUBIN 2.4 mg/dL (0.0-1.0)
[2017-01-07 13:44] LABS: ALKALINE PHOSPHATASE 110 IU/L (3-129)
[2017-01-07 13:45] LABS: GFR ESTIMATE (CALCULATED) > 59 mL/min/
[2017-01-07 13:46] LABS: UREA NITROGEN (BUN) 13 mg/dL (9-23)
[2017-01-07] MEDS ORDERED: DAILY VITE1 EAC1 PO (14:56)
[2017-01-07] MEDS ORDERED: COLACE100 MG PO (14:56)
[2017-01-07] MEDS ORDERED: LIDODERM 5% P1 PATCH TD (14:57)
[2017-01-07 15:40] VITALS: BP 151/86
[2017-01-07 16:16] LABS: TROP-I INTERPRETATION NEGATIVE; TROPONIN-I 0.06 ng/mL (0.0-0.30)
[2017-01-07 20:00] VITALS: BP 98/53
[2017-01-07 21:19] VITALS: BP 106/55
[2017-01-07 22:46] LABS: TROP-I INTERPRETATION NEGATIVE; TROPONIN-I 0.06 ng/mL (0.0-0.30)
[2017-01-07 23:58] VITALS: BP 94/55
[2017-01-08 00:38] VITALS: BP 87/57
[2017-01-08 04:19] VITALS: BP 93/50
[2017-01-08 05:41] LABS: TROP-I INTERPRETATION NEGATIVE; TROPONIN-I 0.06 ng/mL (0.0-0.30)
[2017-01-08 06:23] LABS: POINT-OF-CARE METER ID UU14188577
[2017-01-08 06:40] LABS: EOSINOPHIL (%) 0.2 % (0-5); HEMATOCRIT 33.5 % (38.0-50.0); IMMATURE GRANULOCYTE (%) 0.3 % (0.0-0.7); INSTRUMENT ABS NEUTROPHIL CT 9.6 K/uL; LYMPHOCYTE COUNT 1.1 K/uL (1.0-2.8); MCH 26.8 PG (29.0-34.0); MCV 86.3 FL (86-99); MONOCYTE (%) 7.8 % (3-12); MONOCYTE COUNT 0.9 K/uL (0-0.8); NEUTROPHIL (%) 82.1 % (45-76); NEUTROPHIL COUNT 9.6 K/uL (1.8-6.4); NRBC (%) 0.2 /100 WBC (0-0); PLATELET COUNT 360 K/uL (156-360); RBC DIS.WIDTH-CV 17.9 % (11.8-14.6); RBC DIS.WIDTH-SD 55.6 % (39-53); RED BLOOD COUNT 3.88 M/uL (4.00-5.50); WHITE BLOOD COUNT 11.7 K/uL (4.1-10.2)
[2017-01-08 06:44] LABS: ANION GAP 10 MEQ/L (2-14); CHLORIDE 98 MEQ/L (99-109); GFR ESTIMATE (CALCULATED) 36 mL/min/; GLUCOSE 108 mg/dL (70-99); SAMPLE HEMOLYSIS CHECK 0; SAMPLE ICTERIC CHECK 1; SAMPLE LIPEMIA CHECK 0; SODIUM 135 MEQ/L (136-147); UREA NITROGEN (BUN) 18 mg/dL (9-23)
[2017-01-08 07:55] VITALS: BP 98/56
[2017-01-08 11:00] VITALS: BP 120/68
[2017-01-08 11:56] LABS: POINT-OF-CARE METER ID UU14188577
[2017-01-08 15:55] VITALS: BP 138/81
[2017-01-08 16:16] LABS: ADD MIUA? YES; BILIRUBIN NEGATIVE; BLOOD SMALL; GLUCOSE (STRIP) NEGATIVE; KETONES NEGATIVE; LEUKOCYTES NEGATIVE; NITRITE NEGATIVE; PROTEIN (STRIP) 100; SPECIFIC GRAVITY 1.025 (1.000-1.030)
[2017-01-08 16:22] LABS: UR CREATININE CONCENTRATION 265.8 MG/DL
[2017-01-08 16:27] LABS: COLOR DK YELLOW ((YELLOW))
[2017-01-08 16:50] LABS: AMORPHOUS URATES CRYSTALS 3+; BACTERIA RARE /HPF; CASTS PRESENT /LPF; COARSE GRANULAR CASTS RARE /LPF; CRYSTALS PRESENT; EPITHELIAL CELLS RARE /HPF; FINE GRANULAR CASTS 0-5 /LPF; MUCUS NONE SEEN /LPF; RED BLOOD CELLS 0-5 /HPF (0-5); WHITE BLOOD CELLS 0-5 /HPF (0-5)
[2017-01-08 19:43] VITALS: BP 137/92
[2017-01-08 22:05] LABS: POINT-OF-CARE METER ID UU14188577
[2017-01-09] VITALS (7 sets, daily range): BP systolic 117–144; BP diastolic 71–87
[2017-01-09 05:25] LABS: EOSINOPHIL (%) 2.4 % (0-5); EOSINOPHIL COUNT 0.2 K/uL (0-0.3); HEMATOCRIT 34.2 % (38.0-50.0); IMMATURE GRANULOCYTE (%) 0.3 % (0.0-0.7); INSTRUMENT ABS NEUTROPHIL CT 4.6 K/uL; LYMPHOCYTE COUNT 1.2 K/uL (1.0-2.8); MCH 26.6 PG (29.0-34.0); MCHC 31.3 G/DL (30.0-36.0); MCV 85.1 FL (86-99); MEAN PLAT.VOLUME 10.6 uM^3 (9.0-12.4); MONOCYTE (%) 11.9 % (3-12); MONOCYTE COUNT 0.8 K/uL (0-0.8); NEUTROPHIL (%) 67.5 % (45-76); NEUTROPHIL COUNT 4.6 K/uL (1.8-6.4); PLATELET COUNT 299 K/uL (156-360); RBC DIS.WIDTH-CV 17.7 % (11.8-14.6); RBC DIS.WIDTH-SD 54.4 % (39-53); RED BLOOD COUNT 4.02 M/uL (4.00-5.50); WHITE BLOOD COUNT 6.8 K/uL (4.1-10.2)
[2017-01-09 06:36] LABS: ALKALINE PHOSPHATASE 77 IU/L (3-129); ANION GAP 10 MEQ/L (2-14); CHLORIDE 99 MEQ/L (99-109); GFR ESTIMATE (CALCULATED) 19 mL/min/; GLUCOSE 97 mg/dL (70-99); MAGNESIUM 1.6 mg/dl (1.3-2.7); POTASSIUM 3.8 MEQ/L (3.7-5.4); SAMPLE HEMOLYSIS CHECK 0; SAMPLE ICTERIC CHECK 0; SAMPLE LIPEMIA CHECK 0; SODIUM 134 MEQ/L (136-147); TOTAL BILIRUBIN 2.1 MG/DL (0.0-1.0)
[2017-01-09 06:37] LABS: UREA NITROGEN (BUN) 32 mg/dL (9-23)
[2017-01-09 07:43] LABS: POINT-OF-CARE METER ID UU14149397
[2017-01-09 11:56] LABS: POINT-OF-CARE METER ID UU14149397
[2017-01-09 14:12] LABS: C3 COMPLEMENT 163 MG/DL (58-170); C4 COMPLEMENT 22 MG/DL (10-40)
[2017-01-09 21:25] LABS: POINT-OF-CARE METER ID UU14188577
[2017-01-10 04:06] VITALS: BP 128/78
[2017-01-10 05:08] LABS: EOSINOPHIL (%) 0.3 % (0-5); HEMATOCRIT 31.5 % (38.0-50.0); IMMATURE GRANULOCYTE (%) 0.5 % (0.0-0.7); INSTRUMENT ABS NEUTROPHIL CT 4.6 K/uL; LYMPHOCYTE COUNT 1.1 K/uL (1.0-2.8); MCH 26.2 PG (29.0-34.0); MCHC 31.1 G/DL (30.0-36.0); MCV 84.2 FL (86-99); MEAN PLAT.VOLUME 10.6 uM^3 (9.0-12.4); MONOCYTE (%) 10.3 % (3-12); MONOCYTE COUNT 0.7 K/uL (0-0.8); NEUTROPHIL (%) 72.2 % (45-76); NEUTROPHIL COUNT 4.6 K/uL (1.8-6.4); NRBC (%) 0.3 /100 WBC (0-0); PLATELET COUNT 286 K/uL (156-360); RBC DIS.WIDTH-CV 18.2 % (11.8-14.6); RED BLOOD COUNT 3.74 M/uL (4.00-5.50); WHITE BLOOD COUNT 6.4 K/uL (4.1-10.2)
[2017-01-10 05:29] LABS: CHLORIDE 102 mEq/L (99-109); SODIUM 135 mEq/L (136-147)
[2017-01-10 05:30] LABS: GLUCOSE 84 mg/dL (70-99)
[2017-01-10 05:32] LABS: ANION GAP 12 MEQ/L (2-14)
[2017-01-10 05:34] LABS: GFR ESTIMATE (CALCULATED) 15 mL/min/
[2017-01-10 05:35] LABS: UREA NITROGEN (BUN) 42 mg/dL (9-23)
[2017-01-10 06:32] LABS: POINT-OF-CARE METER ID UU14188577
[2017-01-10 08:37] VITALS: BP 133/90
[2017-01-10 10:33] LABS: HBSG INDEX 0.29
[2017-01-10 10:34] LABS: ANTI-HEPATITIS A VIRUS (IGM) Nonreactive; HAV INDEX 0.15; HPCA INDEX 0.15
[2017-01-10 10:36] LABS: ANTI-HEPATITIS B CORE (IGM) Nonreactive; HBC IgM INDEX 0.05; HIV INDEX 0.14; HIV-1/2 AB/AG COMBO Nonreactive
[2017-01-10 11:50] LABS: POINT-OF-CARE METER ID UU14188577
[2017-01-10 12:17] VITALS: BP 109/69
[2017-01-10 17:16] LABS: POINT-OF-CARE METER ID UU14149397
[2017-01-10 19:57] VITALS: BP 120/77
[2017-01-10 22:55] LABS: POINT-OF-CARE METER ID UU14188577
[2017-01-11 00:19] VITALS: BP 115/84
[2017-01-11 04:01] VITALS: BP 142/80
[2017-01-11 04:51] LABS: EOSINOPHIL (%) 1.2 % (0-5); EOSINOPHIL COUNT 0.1 K/uL (0-0.3); IMMATURE GRANULOCYTE (%) 0.4 % (0.0-0.7); INSTRUMENT ABS NEUTROPHIL CT 3.6 K/uL; LYMPHOCYTE COUNT 1.2 K/uL (1.0-2.8); MCH 26.9 PG (29.0-34.0); MCHC 31.6 G/DL (30.0-36.0); MCV 85.3 FL (86-99); MEAN PLAT.VOLUME 10.6 uM^3 (9.0-12.4); MONOCYTE (%) 13.1 % (3-12); MONOCYTE COUNT 0.7 K/uL (0-0.8); NEUTROPHIL (%) 64.3 % (45-76); NEUTROPHIL COUNT 3.6 K/uL (1.8-6.4); PLATELET COUNT 300 K/uL (156-360); RBC DIS.WIDTH-CV 18.6 % (11.8-14.6); RBC DIS.WIDTH-SD 55.8 % (39-53); RED BLOOD COUNT 3.75 M/uL (4.00-5.50); WHITE BLOOD COUNT 5.6 K/uL (4.1-10.2)
[2017-01-11 05:08] LABS: CHLORIDE 103 mEq/L (99-109); POTASSIUM 4.2 mEq/L (3.7-5.4); SODIUM 137 mEq/L (136-147)
[2017-01-11 05:10] LABS: GLUCOSE 96 mg/dL (70-99)
[2017-01-11 05:11] LABS: ANION GAP 12 MEQ/L (2-14)
[2017-01-11 05:14] LABS: GFR ESTIMATE (CALCULATED) 16 mL/min/; UREA NITROGEN (BUN) 46 mg/dL (9-23)
[2017-01-11 08:03] VITALS: BP 123/75
[2017-01-11 11:44] LABS: POINT-OF-CARE METER ID UU14188577
[2017-01-11 15:30] VITALS: BP 153/76
[2017-01-11 16:27] LABS: POINT-OF-CARE METER ID UU14188577
[2017-01-11 19:23] VITALS: BP 119/63
[2017-01-11 23:28] VITALS: BP 145/94
[2017-01-12 05:53] LABS: HEMATOCRIT 32.1 % (38.0-50.0); MCH 26.9 PG (29.0-34.0); MCHC 31.8 G/DL (30.0-36.0); MCV 84.7 FL (86-99); MEAN PLAT.VOLUME 10.9 uM^3 (9.0-12.4); PLATELET COUNT 326 K/uL (156-360); RBC DIS.WIDTH-CV 18.3 % (11.8-14.6); RBC DIS.WIDTH-SD 55.9 % (39-53); RED BLOOD COUNT 3.79 M/uL (4.00-5.50)
[2017-01-12 06:14] LABS: ANION GAP 11 MEQ/L (2-14); CHLORIDE 102 MEQ/L (99-109); GFR ESTIMATE (CALCULATED) 20 mL/min/; GLUCOSE 141 mg/dL (70-99); MAGNESIUM 1.7 mg/dl (1.3-2.7); POTASSIUM 4.1 MEQ/L (3.7-5.4); SAMPLE HEMOLYSIS CHECK 1; SAMPLE ICTERIC CHECK 0; SAMPLE LIPEMIA CHECK 1; SODIUM 135 MEQ/L (136-147); UREA NITROGEN (BUN) 44 mg/dL (9-23)
[2017-01-12 07:20] VITALS: BP 134/91
[2017-01-12 07:43] LABS: POINT-OF-CARE METER ID UU14188577
[2017-01-12 11:48] LABS: POINT-OF-CARE METER ID UU14188577
[2017-01-12 15:20] VITALS: BP 115/79
[2017-01-13 00:17] VITALS: BP 165/102
[2017-01-13 06:08] LABS: EOSINOPHIL COUNT 0.1 K/uL (0-0.3); HEMATOCRIT 33.4 % (38.0-50.0); IMMATURE GRANULOCYTE (%) 0.3 % (0.0-0.7); INSTRUMENT ABS NEUTROPHIL CT 3.9 K/uL; LYMPHOCYTE COUNT 1.2 K/uL (1.0-2.8); MCH 27.4 PG (29.0-34.0); MCV 85.6 FL (86-99); MEAN PLAT.VOLUME 11.1 uM^3 (9.0-12.4); MONOCYTE (%) 12.4 % (3-12); MONOCYTE COUNT 0.7 K/uL (0-0.8); NEUTROPHIL (%) 64.2 % (45-76); NEUTROPHIL COUNT 3.9 K/uL (1.8-6.4); PLATELET COUNT 342 K/uL (156-360); RBC DIS.WIDTH-CV 18.6 % (11.8-14.6); RBC DIS.WIDTH-SD 56.9 % (39-53)
[2017-01-13 06:58] LABS: POINT-OF-CARE METER ID UU14188577
[2017-01-13 07:40] LABS: ANION GAP 12 MEQ/L (2-14); CHLORIDE 101 MEQ/L (99-109); GFR ESTIMATE (CALCULATED) 24 mL/min/; GLUCOSE 107 mg/dL (70-99); POTASSIUM 4.1 MEQ/L (3.7-5.4); SAMPLE HEMOLYSIS CHECK 0; SAMPLE ICTERIC CHECK 0; SAMPLE LIPEMIA CHECK 1; SODIUM 137 MEQ/L (136-147); UREA NITROGEN (BUN) 39 mg/dL (9-23)
[2017-01-13 07:41] LABS: ALKALINE PHOSPHATASE 109 IU/L (3-129); TOTAL BILIRUBIN 0.7 MG/DL (0.0-1.0)
[2017-01-13 07:52] VITALS: BP 162/96
[2017-01-13 07:53] LABS: MAGNESIUM 1.6 mg/dl (1.3-2.7)
[2017-01-13 11:34] LABS: POINT-OF-CARE METER ID UU14149397
[2017-01-13 15:26] VITALS: BP 116/75
[2017-01-13 20:16] VITALS: BP 132/83
[2017-01-13 21:33] LABS: POINT-OF-CARE METER ID UU14188577
[2017-01-13 21:46] LABS: Neutrophil Cytoplasmic Aby Negative (Negative)
[2017-01-14] VITALS (7 sets, daily range): BP systolic 131–170; BP diastolic 80–96
[2017-01-14 05:28] LABS: EOSINOPHIL (%) 2.4 % (0-5); EOSINOPHIL COUNT 0.1 K/uL (0-0.3); HEMATOCRIT 35.3 % (38.0-50.0); IMMATURE GRANULOCYTE (%) 0.6 % (0.0-0.7); INSTRUMENT ABS NEUTROPHIL CT 3.5 K/uL; LYMPHOCYTE COUNT 1.1 K/uL (1.0-2.8); MCH 26.6 PG (29.0-34.0); MCHC 30.9 G/DL (30.0-36.0); MCV 86.1 FL (86-99); MEAN PLAT.VOLUME 10.8 uM^3 (9.0-12.4); MONOCYTE (%) 10.5 % (3-12); MONOCYTE COUNT 0.6 K/uL (0-0.8); NEUTROPHIL (%) 64.9 % (45-76); NEUTROPHIL COUNT 3.5 K/uL (1.8-6.4); NRBC (%) 0.4 /100 WBC (0-0); PLATELET COUNT 349 K/uL (156-360); RBC DIS.WIDTH-CV 18.2 % (11.8-14.6); WHITE BLOOD COUNT 5.4 K/uL (4.1-10.2)
[2017-01-14 05:53] LABS: ANION GAP 10 MEQ/L (2-14); CHLORIDE 101 MEQ/L (99-109); GFR ESTIMATE (CALCULATED) 33 mL/min/; GLUCOSE 117 mg/dL (70-99); SAMPLE HEMOLYSIS CHECK 0; SAMPLE ICTERIC CHECK 0; SAMPLE LIPEMIA CHECK 0; SODIUM 136 MEQ/L (136-147); UREA NITROGEN (BUN) 38 mg/dL (9-23)
[2017-01-14 21:57] LABS: POINT-OF-CARE METER ID UU14149397
[2017-01-15 06:16] LABS: ANION GAP 11 MEQ/L (2-14); CHLORIDE 104 MEQ/L (99-109); GFR ESTIMATE (CALCULATED) 39 mL/min/; GLUCOSE 160 mg/dL (70-99); POTASSIUM 3.5 MEQ/L (3.7-5.4); SAMPLE HEMOLYSIS CHECK 0; SAMPLE ICTERIC CHECK 0; SAMPLE LIPEMIA CHECK 0; SODIUM 139 MEQ/L (136-147); UREA NITROGEN (BUN) 30 mg/dL (9-23)
[2017-01-15 06:48] LABS: POINT-OF-CARE METER ID UU14149397
[2017-01-15 08:32] VITALS: BP 183/101
[2017-01-15 12:16] VITALS: BP 187/116
[2017-01-15 12:23] LABS: POINT-OF-CARE METER ID UU14149397
[2017-01-15 15:11] VITALS: BP 128/86
[2017-01-15 16:16] VITALS: BP 135/81
[2017-01-15 17:05] LABS: TROP-I INTERPRETATION NEGATIVE; TROPONIN-I 0.03 ng/mL (0.0-0.30)
[2017-01-15 18:11] LABS: D-DIMER ELISA > 4.00 mg/L FEU (< 0.57)
[2017-01-15 19:48] VITALS: BP 114/91
[2017-01-15 21:46] LABS: POINT-OF-CARE METER ID UU14149397
[2017-01-15 23:18] LABS: TROP-I INTERPRETATION NEGATIVE; TROPONIN-I 0.04 ng/mL (0.0-0.30)
[2017-01-16] VITALS (9 sets, daily range): BP systolic 107–209; BP diastolic 57–113
[2017-01-16 07:10] LABS: ANION GAP 13 MEQ/L (2-14); CHLORIDE 104 MEQ/L (99-109); GFR ESTIMATE (CALCULATED) 42 mL/min/; SAMPLE HEMOLYSIS CHECK 1; SAMPLE ICTERIC CHECK 0; SAMPLE LIPEMIA CHECK 0; SODIUM 138 MEQ/L (136-147); UREA NITROGEN (BUN) 27 mg/dL (9-23)
[2017-01-16 07:13] LABS: GLUCOSE 104 mg/dL (70-99)
[2017-01-16 12:00] LABS: POINT-OF-CARE METER ID UU14149397
[2017-01-16 22:08] LABS: POINT-OF-CARE METER ID UU14188577
[2017-01-17 03:45] VITALS: BP 173/99
[2017-01-17 06:25] VITALS: BP 150/88
[2017-01-17 08:01] LABS: EOSINOPHIL (%) 1.8 % (0-5); EOSINOPHIL COUNT 0.1 K/uL (0-0.3); HEMATOCRIT 35.4 % (38.0-50.0); IMMATURE GRANULOCYTE (%) 0.7 % (0.0-0.7); IMMATURE GRANULOCYTE COUNT 0.1 K/uL; INSTRUMENT ABS NEUTROPHIL CT 4.4 K/uL; LYMPHOCYTE COUNT 1.3 K/uL (1.0-2.8); MCH 26.1 PG (29.0-34.0); MCHC 30.5 G/DL (30.0-36.0); MCV 85.5 FL (86-99); MEAN PLAT.VOLUME 11.1 uM^3 (9.0-12.4); MONOCYTE (%) 12.1 % (3-12); MONOCYTE COUNT 0.8 K/uL (0-0.8); NEUTROPHIL (%) 65.8 % (45-76); NEUTROPHIL COUNT 4.4 K/uL (1.8-6.4); NRBC (%) 0.9 /100 WBC (0-0); PLATELET COUNT 361 K/uL (156-360); RBC DIS.WIDTH-CV 18.2 % (11.8-14.6); RBC DIS.WIDTH-SD 56.6 % (39-53); RED BLOOD COUNT 4.14 M/uL (4.00-5.50); WHITE BLOOD COUNT 6.7 K/uL (4.1-10.2)
[2017-01-17 08:04] VITALS: BP 156/95
[2017-01-17 08:29] LABS: ANION GAP 10 MEQ/L (2-14); CHLORIDE 99 MEQ/L (99-109); GLUCOSE 152 mg/dL (70-99); POTASSIUM 4.2 MEQ/L (3.7-5.4); SAMPLE HEMOLYSIS CHECK 0; SAMPLE ICTERIC CHECK 0; SAMPLE LIPEMIA CHECK 0; SODIUM 140 MEQ/L (136-147); UREA NITROGEN (BUN) 20 mg/dL (9-23)
[2017-01-17 08:31] LABS: GFR ESTIMATE (CALCULATED) 56 mL/min/
[2017-01-17 11:09] VITALS: BP 147/101
[2017-01-17 11:35] LABS: POINT-OF-CARE METER ID UU14188577
[2017-01-17 13:13] VITALS: BP 142/90
[2017-01-17] MEDS ORDERED: APRESOLINE100 MG PO (13:43)
[2017-01-17] MEDS ORDERED: LOPRESSOR25 MG PO (13:44)
[2017-01-17] MEDS ORDERED: DIVALPROEX SOD500 MG PO (13:47)
[2017-01-17] MEDS ORDERED: LEVEMIR FL100 UNIT/1 SC (13:48)
[2017-01-17] MEDS ORDERED: HYDROMORPHONE HC2 MG PO (13:49)
[2017-01-17] MEDS ORDERED: BENADRYL25 MG PO (13:49)
== END 2017-01-17 17:18 | disposition home or self-care (01) | DRG 190 ==
LOC: EME 11:03 → EDOF 14:01 → 3EAST 14:01
PROVIDERS: Emergency Medicine; Hospitalist; Internal Medicine; Internal Medicine Nephrology; Physician Assistant
DX: J44.0 Chronic obstructive pulmonary disease with (acute) lower respiratory infection (principal); J18.9 Pneumonia, unspecified organism; J96.01 Acute respiratory failure with hypoxia; N17.0 Acute kidney failure with tubular necrosis; N14.1 Nephropathy induced by other drugs, medicaments and biological substances; T50.1X5A Adverse effect of loop [high-ceiling] diuretics, initial encounter; T46.4X5A Adverse effect of angiotensin-converting-enzyme inhibitors, initial encounter; T39.315A Adverse effect of propionic acid derivatives, initial encounter; T50.8X5A Adverse effect of diagnostic agents, initial encounter; J44.1 Chronic obstructive pulmonary disease with (acute) exacerbation; J45.909 Unspecified asthma, uncomplicated; I42.2 Other hypertrophic cardiomyopathy; I48.0 Paroxysmal atrial fibrillation; I13.0 Hypertensive heart and chronic kidney disease with heart failure and stage 1 through stage 4 chronic kidney disease, or unspecified chronic kidney disease; I50.32 Chronic diastolic (congestive) heart failure; N18.3 Chronic kidney disease, stage 3 (moderate); E11.22 Type 2 diabetes mellitus with diabetic chronic kidney disease; E78.5 Hyperlipidemia, unspecified; G47.33 Obstructive sleep apnea (adult) (pediatric); Z99.81 Dependence on supplemental oxygen; I27.2 Other secondary pulmonary hypertension; E87.6 Hypokalemia; G40.909 Epilepsy, unspecified, not intractable, without status epilepticus; G89.29 Other chronic pain; R10.11 Right upper quadrant pain; K86.1 Other chronic pancreatitis; K21.0 Gastro-esophageal reflux disease with esophagitis; K44.9 Diaphragmatic hernia without obstruction or gangrene; E66.01 Morbid (severe) obesity due to excess calories; Z68.41 Body mass index [BMI] 40.0-44.9, adult; K59.09 Other constipation; I95.9 Hypotension, unspecified; K85.10 Biliary acute pancreatitis without necrosis or infection; M62.830 Muscle spasm of back; F32.9 Major depressive disorder, single episode, unspecified; F12.10 Cannabis abuse, uncomplicated; Z79.4 Long term (current) use of insulin; Z90.49 Acquired absence of other specified parts of digestive tract
CPT/HCPCS: 70450; 71010; 71250; 74000; 74176; 74177; 76770; 80048; 80053; 80069; 80074; 81003; 82570; 82948; 83605; 83735; 83880; 84100; 84156; 84484; 85025; 85027; 85379; 85610; 85730; 86021 90; 86038; 86160; 86162 90; 86703; 87040; 87493; 89190; 93005; 93970; 94010; 94640 76; 94660; 94799; 95819; 99202; 99281; 99284; 99285; J1200; J1815; J1940; J1956; J2270; J2405; J2543; J3370; J7030; J7050

== ENCOUNTER → 2017-01-31 | Outpatient (CLI) | payer OTHER ==
[~2017-01-31] MED LIST changes: +APRESOLINE100 MG PO; +BENADRYL25 MG PO; +COLACE100 MG PO; +DAILY VITE1 EAC1 PO; +DIVALPROEX SOD500 MG PO; +HYDROMORPHONE HC2 MG PO; +LIDODERM 5% P1 PATCH TD; +NAPROXEN500 MG PO
== END | disposition home or self-care (01) ==
LOC: NUC 06:53
DX: R10.11 Right upper quadrant pain (principal); R11.0 Nausea
CPT/HCPCS: 78264; A9541

== ENCOUNTER 2017-02-04 15:10 | Emergency (ER) | payer OTHER ==
[~2017-02-04] VITALS: Ht 180.3 cm; Wt 132.1 kg
[~2017-02-04 15:10] MED LIST changes: -NAPROXEN500 MG PO
[2017-02-04 15:56] VITALS: BP 154/106
[2017-02-04] MEDS ORDERED: NORCO 5/3251 TABLET PO (20:05)
[2017-02-04] MEDS ORDERED: NAPROXEN500 MG PO (20:07)
== END 2017-02-04 20:52 | disposition home or self-care (01) ==
LOC: EME 15:10
DX: M25.572 Pain in left ankle and joints of left foot (principal); E11.9 Type 2 diabetes mellitus without complications; I25.10 Atherosclerotic heart disease of native coronary artery without angina pectoris; J44.9 Chronic obstructive pulmonary disease, unspecified; I10 Essential (primary) hypertension
CPT/HCPCS: 73610; 93971; 99281; 99284

== ENCOUNTER 2017-02-10 10:56 | Inpatient (IN) | payer OTHER ==
[~2017-02-10] VITALS: Ht 195.6 cm; Wt 139.3 kg
[~2017-02-10 10:56] MED LIST changes: +NAPROXEN500 MG PO
[2017-02-10 12:16] LABS: HEMATOCRIT 40.4 % (38.0-50.0); MCH 26.7 PG (29.0-34.0); MCHC 31.7 G/DL (30.0-36.0); MCV 84.2 FL (86-99); MEAN PLAT.VOLUME 10.9 uM^3 (9.0-12.4); PLATELET COUNT 299 K/uL (156-360); RBC DIS.WIDTH-CV 17.2 % (11.8-14.6); RBC DIS.WIDTH-SD 52.9 % (39-53); WHITE BLOOD COUNT 13.1 K/uL (4.1-10.2)
[2017-02-10 12:23] LABS: CHLORIDE 98 mEq/L (99-109); POTASSIUM 4.2 mEq/L (3.7-5.4); SODIUM 133 mEq/L (136-147)
[2017-02-10 12:24] LABS: GLUCOSE 355 mg/dL (70-99)
[2017-02-10 12:26] LABS: ANION GAP 9 MEQ/L (2-14)
[2017-02-10 12:28] LABS: GFR ESTIMATE (CALCULATED) > 59 mL/min/
[2017-02-10 12:29] LABS: UREA NITROGEN (BUN) 14 mg/dL (9-23)
[2017-02-10 12:34] LABS: TROP-I INTERPRETATION NEGATIVE; TROPONIN-I 0.04 ng/mL (0.0-0.30)
[2017-02-10] MEDS ORDERED: METOPROLOL TART50 MG PO (15:34)
[2017-02-10] MEDS ORDERED: AMITRIPTYLINE H50 MG PO (15:35)
[2017-02-10 19:22] VITALS: BP 166/92
[2017-02-10 21:49] VITALS: BP 163/98
[2017-02-11 07:10] VITALS: BP 130/66
[2017-02-11 07:10] LABS: EOSINOPHIL (%) 0.4 % (0-5); HEMATOCRIT 37.3 % (38.0-50.0); IMMATURE GRANULOCYTE (%) 0.4 % (0.0-0.7); INSTRUMENT ABS NEUTROPHIL CT 8.9 K/uL; LYMPHOCYTE COUNT 1.4 K/uL (1.0-2.8); MCH 26.2 PG (29.0-34.0); MCHC 31.6 G/DL (30.0-36.0); MCV 82.9 FL (86-99); MEAN PLAT.VOLUME 11.2 uM^3 (9.0-12.4); MONOCYTE (%) 5.2 % (3-12); MONOCYTE COUNT 0.6 K/uL (0-0.8); NEUTROPHIL (%) 81.2 % (45-76); NEUTROPHIL COUNT 8.9 K/uL (1.8-6.4); PLATELET COUNT 259 K/uL (156-360); RBC DIS.WIDTH-CV 17.4 % (11.8-14.6); RBC DIS.WIDTH-SD 52.2 % (39-53)
[2017-02-11 07:36] LABS: ANION GAP 11 MEQ/L (2-14); CHLORIDE 98 MEQ/L (99-109); GFR ESTIMATE (CALCULATED) > 59 mL/min/; GLUCOSE 225 mg/dL (70-99); SAMPLE HEMOLYSIS CHECK 0; SAMPLE ICTERIC CHECK 0; SAMPLE LIPEMIA CHECK 0; SODIUM 135 MEQ/L (136-147); UREA NITROGEN (BUN) 12 mg/dL (9-23)
[2017-02-11 07:41] LABS: POTASSIUM 3.3 MEQ/L (3.7-5.4)
[2017-02-11 11:05] VITALS: BP 112/65
[2017-02-11 15:17] VITALS: BP 104/63
[2017-02-11 20:05] VITALS: BP 112/63
[2017-02-11 22:30] VITALS: BP 130/84
[2017-02-12] VITALS (7 sets, daily range): BP systolic 109–137; BP diastolic 63–82
[2017-02-12 06:46] LABS: EOSINOPHIL (%) 2.5 % (0-5); EOSINOPHIL COUNT 0.2 K/uL (0-0.3); HEMATOCRIT 35.1 % (38.0-50.0); IMMATURE GRANULOCYTE (%) 0.3 % (0.0-0.7); INSTRUMENT ABS NEUTROPHIL CT 3.8 K/uL; LYMPHOCYTE COUNT 1.6 K/uL (1.0-2.8); MCH 26.1 PG (29.0-34.0); MCHC 30.5 G/DL (30.0-36.0); MCV 85.6 FL (86-99); MEAN PLAT.VOLUME 11.8 uM^3 (9.0-12.4); MONOCYTE (%) 8.1 % (3-12); MONOCYTE COUNT 0.5 K/uL (0-0.8); NEUTROPHIL (%) 62.7 % (45-76); NEUTROPHIL COUNT 3.8 K/uL (1.8-6.4); PLATELET COUNT 261 K/uL (156-360); RBC DIS.WIDTH-CV 17.7 % (11.8-14.6); RBC DIS.WIDTH-SD 55.6 % (39-53); WHITE BLOOD COUNT 6.1 K/uL (4.1-10.2)
[2017-02-12 07:05] LABS: ANION GAP 8 MEQ/L (2-14); CHLORIDE 100 MEQ/L (99-109); GFR ESTIMATE (CALCULATED) > 59 mL/min/; GLUCOSE 121 mg/dL (70-99); SAMPLE HEMOLYSIS CHECK 0; SAMPLE ICTERIC CHECK 0; SAMPLE LIPEMIA CHECK 0; SODIUM 137 MEQ/L (136-147); UREA NITROGEN (BUN) 19 mg/dL (9-23)
[2017-02-12 07:08] LABS: POTASSIUM 4.2 MEQ/L (3.7-5.4)
[2017-02-12 11:31] LABS: POINT-OF-CARE METER ID UU13113725
[2017-02-12 16:32] LABS: POINT-OF-CARE METER ID UU13113725
[2017-02-12 22:30] LABS: POINT-OF-CARE METER ID UU13113725
[2017-02-13 04:48] VITALS: BP 132/91
[2017-02-13 06:22] LABS: POINT-OF-CARE METER ID UU13113725
[2017-02-13 06:38] LABS: EOSINOPHIL (%) 2.6 % (0-5); EOSINOPHIL COUNT 0.2 K/uL (0-0.3); HEMATOCRIT 35.4 % (38.0-50.0); IMMATURE GRANULOCYTE (%) 0.4 % (0.0-0.7); LYMPHOCYTE COUNT 1.1 K/uL (1.0-2.8); MCH 27.5 PG (29.0-34.0); MCHC 31.9 G/DL (30.0-36.0); MCV 86.1 FL (86-99); MONOCYTE (%) 6.9 % (3-12); MONOCYTE COUNT 0.4 K/uL (0-0.8); NEUTROPHIL (%) 69.7 % (45-76); PLATELET COUNT 271 K/uL (156-360); RBC DIS.WIDTH-CV 18.3 % (11.8-14.6); RBC DIS.WIDTH-SD 57.2 % (39-53); RED BLOOD COUNT 4.11 M/uL (4.00-5.50); WHITE BLOOD COUNT 5.7 K/uL (4.1-10.2)
[2017-02-13 07:10] VITALS: BP 126/67
[2017-02-13 07:21] LABS: ANION GAP 10 MEQ/L (2-14); CHLORIDE 101 MEQ/L (99-109); GFR ESTIMATE (CALCULATED) > 59 mL/min/; SAMPLE HEMOLYSIS CHECK 0; SAMPLE ICTERIC CHECK 0; SAMPLE LIPEMIA CHECK 0; SODIUM 137 MEQ/L (136-147); UREA NITROGEN (BUN) 23 mg/dL (9-23)
[2017-02-13 07:24] LABS: GLUCOSE 251 mg/dL (70-99)
[2017-02-13 10:39] VITALS: BP 150/88
[2017-02-13 11:44] LABS: POINT-OF-CARE METER ID UU13113725
[2017-02-13 15:56] LABS: POINT-OF-CARE METER ID UU13113725
[2017-02-13 16:11] VITALS: BP 129/75
[2017-02-13 19:44] VITALS: BP 134/74
[2017-02-13 22:48] VITALS: BP 129/74
[2017-02-14 03:05] VITALS: BP 144/89
[2017-02-14 07:03] VITALS: BP 169/98
[2017-02-14 11:10] VITALS: BP 135/79
[2017-02-14] MEDS ORDERED: LEVAQUIN500 MG PO (11:50)
[2017-02-14] MEDS ORDERED: VENTOLIN HFA18 GM IH (11:50)
[2017-02-14] MEDS ORDERED: LISINOPRIL2.5 MG PO (11:50)
[2017-02-14] MEDS ORDERED: ADVAIR HFA120 INHAL1 IH (11:50)
[2017-02-14 11:53] LABS: POINT-OF-CARE METER ID UU13113725
[2017-02-14 15:49] VITALS: BP 131/72
[2017-02-14 19:55] VITALS: BP 127/83
[2017-02-15 00:01] VITALS: BP 132/78
[2017-02-15 04:19] VITALS: BP 143/83
[2017-02-15 06:55] VITALS: BP 118/73
[2017-02-15 07:39] LABS: POINT-OF-CARE METER ID UU13113725
[2017-02-15 09:44] LABS: POINT-OF-CARE METER ID UU13113725
[2017-02-15 10:46] VITALS: BP 120/71
[2017-02-15] MEDS ORDERED: LEVEMIR100 UNIT/2 SC (11:58)
[2017-02-16 21:57] LABS: POINT-OF-CARE METER ID UU13113725
[2017-02-16 21:57] LABS: POINT-OF-CARE METER ID UU13113725
[2017-02-16 21:57] LABS: POINT-OF-CARE METER ID UU13113725
== END 2017-02-15 15:32 | disposition home health service (06) | DRG 190 ==
LOC: EME 10:56 → EDOF 14:34 → 5EAST 14:34
PROVIDERS: Family Medicine
DX: J44.0 Chronic obstructive pulmonary disease with (acute) lower respiratory infection (principal); J13 Pneumonia due to Streptococcus pneumoniae; I48.0 Paroxysmal atrial fibrillation; I13.0 Hypertensive heart and chronic kidney disease with heart failure and stage 1 through stage 4 chronic kidney disease, or unspecified chronic kidney disease; I50.32 Chronic diastolic (congestive) heart failure; N18.9 Chronic kidney disease, unspecified; E11.22 Type 2 diabetes mellitus with diabetic chronic kidney disease; I27.2 Other secondary pulmonary hypertension; I42.2 Other hypertrophic cardiomyopathy; R09.02 Hypoxemia; E78.5 Hyperlipidemia, unspecified; G47.33 Obstructive sleep apnea (adult) (pediatric); G40.909 Epilepsy, unspecified, not intractable, without status epilepticus; K21.9 Gastro-esophageal reflux disease without esophagitis; F32.9 Major depressive disorder, single episode, unspecified; E66.9 Obesity, unspecified; Z68.36 Body mass index [BMI] 36.0-36.9, adult; Z79.4 Long term (current) use of insulin; Z86.74 Personal history of sudden cardiac arrest; Z87.01 Personal history of pneumonia (recurrent)
CPT/HCPCS: 36415; 71010; 71020; 80048; 80048 91; 80202; 82948; 83036; 83605; 83880; 84484; 85025; 85027; 87040; 93005; 94640; 94640 76; 94760; 94799; 99202; 99281; 99285; J1815; J2543; J3010; J3370; J7050

== ENCOUNTER 2017-04-04 21:38 | Emergency (ER) | payer OTHER ==
[~2017-04-04] VITALS: Ht 180.3 cm; Wt 136.1 kg
[~2017-04-04 21:38] MED LIST changes: +AMITRIPTYLINE H50 MG PO; +LEVAQUIN500 MG PO; +LEVEMIR100 UNIT/2 SC; +LISINOPRIL2.5 MG PO; +METOPROLOL TART50 MG PO
[2017-04-05 01:30] VITALS: BP 174/114
== END 2017-04-05 01:31 | disposition home or self-care (01) ==
LOC: EME 21:38
PROC: 2W38X1Z Immobilization of Right Upper Extremity using Splint (ICD-10-PCS; principal; 2017-04-04)
DX: S69.91XA Unspecified injury of right wrist, hand and finger(s), initial encounter (principal); W18.30XA Fall on same level, unspecified, initial encounter; E11.9 Type 2 diabetes mellitus without complications; I10 Essential (primary) hypertension; Z88.5 Allergy status to narcotic agent; Z88.6 Allergy status to analgesic agent; Z79.4 Long term (current) use of insulin
CPT/HCPCS: 73090; 73110; 73130; 99281; 99284; J2270; J3010

== ENCOUNTER 2017-04-17 07:43 | Emergency (ER) | payer OTHER ==
[~2017-04-17] VITALS: Ht 180.3 cm; Wt 132.1 kg
[2017-04-17] MEDS ORDERED: MAALOX ADVANCE355 ML PO (08:13)
[2017-04-17] MEDS ORDERED: LEVEMIR100 UNIT/2 SC (08:16)
[2017-04-17 08:21] LABS: HEMATOCRIT 47.6 % (38.0-50.0); MCH 26.9 PG (29.0-34.0); MCHC 32.8 G/DL (30.0-36.0); MCV 81.9 FL (86-99); MEAN PLAT.VOLUME 10.8 uM^3 (9.0-12.4); PLATELET COUNT 328 K/uL (156-360); RBC DIS.WIDTH-CV 17.9 % (11.8-14.6); RBC DIS.WIDTH-SD 50.8 % (39-53); RED BLOOD COUNT 5.81 M/uL (4.00-5.50); WHITE BLOOD COUNT 7.5 K/uL (4.1-10.2)
[2017-04-17 08:37] LABS: CHLORIDE 103 mEq/L (99-109); POTASSIUM 4.2 mEq/L (3.7-5.4); SODIUM 137 mEq/L (136-147)
[2017-04-17 08:39] LABS: GLUCOSE 125 mg/dL (70-99)
[2017-04-17 08:40] LABS: ANION GAP 9 MEQ/L (2-14)
[2017-04-17 08:43] LABS: GFR ESTIMATE (CALCULATED) > 59 mL/min/
[2017-04-17 08:44] LABS: UREA NITROGEN (BUN) 21 mg/dL (9-23)
[2017-04-17 08:45] LABS: TROP-I INTERPRETATION NEGATIVE; TROPONIN-I 0.12 ng/mL (0.0-0.30)
[2017-04-17 11:39] LABS: TROP-I INTERPRETATION NEGATIVE
[2017-04-17 12:18] VITALS: BP 95/62
== END 2017-04-17 12:22 | disposition home or self-care (01) ==
LOC: EME 07:43
PROVIDERS: Nurse Practitioner Family
DX: R25.2 Cramp and spasm (principal); T38.0X5A Adverse effect of glucocorticoids and synthetic analogues, initial encounter; I48.91 Unspecified atrial fibrillation; J44.9 Chronic obstructive pulmonary disease, unspecified; I42.9 Cardiomyopathy, unspecified; E11.9 Type 2 diabetes mellitus without complications; Z79.4 Long term (current) use of insulin; I10 Essential (primary) hypertension; Z79.01 Long term (current) use of anticoagulants; Z79.82 Long term (current) use of aspirin
CPT/HCPCS: 80048; 84484; 85027; 93005; 99281; 99285; J1885; J7030

== ENCOUNTER 2017-04-22 00:39 | Observation (INO) | payer OTHER ==
[~2017-04-22] VITALS: Ht 180.3 cm; Wt 133.1 kg
[2017-04-22 01:15] LABS: POINT-OF-CARE METER ID UU13113702
[2017-04-22 01:17] LABS: HEMATOCRIT 45.6 % (38.0-50.0); MCH 26.6 PG (29.0-34.0); MCHC 32.5 G/DL (30.0-36.0); MCV 81.9 FL (86-99); MEAN PLAT.VOLUME 11.4 uM^3 (9.0-12.4); PLATELET COUNT 274 K/uL (156-360); RBC DIS.WIDTH-CV 17.7 % (11.8-14.6); RBC DIS.WIDTH-SD 51.6 % (39-53); RED BLOOD COUNT 5.57 M/uL (4.00-5.50); WHITE BLOOD COUNT 7.6 K/uL (4.1-10.2)
[2017-04-22 01:23] LABS: CHLORIDE 103 mEq/L (99-109); POTASSIUM 4.1 mEq/L (3.7-5.4); SODIUM 139 mEq/L (136-147)
[2017-04-22 01:25] LABS: GLUCOSE 117 mg/dL (70-99)
[2017-04-22 01:26] LABS: ANION GAP 12 MEQ/L (2-14)
[2017-04-22 01:29] LABS: GFR ESTIMATE (CALCULATED) > 59 mL/min/; UREA NITROGEN (BUN) 20 mg/dL (9-23)
[2017-04-22 01:36] LABS: TROP-I INTERPRETATION NEGATIVE; TROPONIN-I 0.11 ng/mL (0.0-0.30)
[2017-04-22 06:23] VITALS: BP 152/100
[2017-04-22 07:54] VITALS: BP 153/104
[2017-04-22 08:05] VITALS: BP 104/60
[2017-04-22 08:05] LABS: POINT-OF-CARE METER ID UU14162513
[2017-04-22 08:29] VITALS: BP 122/71
[2017-04-22 08:30] LABS: TROP-I INTERPRETATION NEGATIVE; TROPONIN-I 0.09 ng/mL (0.0-0.30)
[2017-04-22 11:30] VITALS: BP 127/78
[2017-04-22 11:45] LABS: POINT-OF-CARE METER ID UU13113700
[2017-04-22] MEDS ORDERED: CYCLOBENZAPRINE10 MG PO (11:56)
[2017-04-22] MEDS ORDERED: DOXAZOSIN MESYLA4 MG PO (11:56)
[2017-04-22] MEDS ORDERED: AMARYL2 MG PO (12:26)
[2017-04-22 12:48] LABS: TROP-I INTERPRETATION NEGATIVE; TROPONIN-I 0.07 ng/mL (0.0-0.30)
== END 2017-04-22 14:15 | disposition home or self-care (01) ==
LOC: EME 00:39 → EDOF 02:57 → ENRESERV 02:59 → 5WEST 06:20
PROVIDERS: Family Medicine
DX: R07.9 Chest pain, unspecified (principal); I16.0 Hypertensive urgency; I10 Essential (primary) hypertension; Z91.14 Patient's other noncompliance with medication regimen; R06.02 Shortness of breath; R05 Cough; R09.81 Nasal congestion; I48.2 Chronic atrial fibrillation; Z79.01 Long term (current) use of anticoagulants; E11.9 Type 2 diabetes mellitus without complications; G40.909 Epilepsy, unspecified, not intractable, without status epilepticus; E78.5 Hyperlipidemia, unspecified; E66.01 Morbid (severe) obesity due to excess calories; G47.33 Obstructive sleep apnea (adult) (pediatric); Z90.49 Acquired absence of other specified parts of digestive tract; J44.9 Chronic obstructive pulmonary disease, unspecified; I27.2 Other secondary pulmonary hypertension; Z86.19 Personal history of other infectious and parasitic diseases; Z88.1 Allergy status to other antibiotic agents; Z88.5 Allergy status to narcotic agent; Z91.09 Other allergy status, other than to drugs and biological substances
CPT/HCPCS: 71020; 80048; 82948; 83605; 83880; 84484; 85027; 87040; 93005; 94640; 94799; 99202; 99281; 99285; G0378; J0360; J3010

== ENCOUNTER 2017-05-01 14:40 | Emergency (ER) | payer OTHER ==
[~2017-05-01] VITALS: Ht 180.3 cm; Wt 138.1 kg
[~2017-05-01 14:40] MED LIST changes: +AMARYL2 MG PO; +CYCLOBENZAPRINE10 MG PO; +DOXAZOSIN MESYLA4 MG PO
[2017-05-01 15:13] LABS: INTER. NORMALIZED RATIO 1.2; PROTHROMBIN TIME 13.1 SEC (10.2-12.9)
[2017-05-01 15:14] LABS: AMYLASE 47 IU/L (1-118)
[2017-05-01 15:16] LABS: PTT 33.3 SEC (25-37)
[2017-05-01 15:23] LABS: LIPASE 28 U/L (1.0-51.0)
[2017-05-01 15:26] LABS: TROP-I INTERPRETATION NEGATIVE; TROPONIN-I 0.08 ng/mL (0.0-0.30)
[2017-05-01 15:30] LABS: EOSINOPHIL (%) 1.4 % (0-5); EOSINOPHIL COUNT 0.1 K/uL (0-0.3); HEMATOCRIT 46.4 % (38.0-50.0); IMMATURE GRANULOCYTE (%) 0.4 % (0.0-0.7); INSTRUMENT ABS NEUTROPHIL CT 3.7 K/uL; LYMPHOCYTE COUNT 1.5 K/uL (1.0-2.8); MCHC 31.9 G/DL (30.0-36.0); MCV 84.5 FL (86-99); MEAN PLAT.VOLUME 11.2 uM^3 (9.0-12.4); MONOCYTE (%) 6.8 % (3-12); MONOCYTE COUNT 0.4 K/uL (0-0.8); NEUTROPHIL (%) 65.1 % (45-76); NEUTROPHIL COUNT 3.7 K/uL (1.8-6.4); PLATELET COUNT 253 K/uL (156-360); RBC DIS.WIDTH-CV 18.6 % (11.8-14.6); RBC DIS.WIDTH-SD 55.1 % (39-53); RED BLOOD COUNT 5.49 M/uL (4.00-5.50); WHITE BLOOD COUNT 5.7 K/uL (4.1-10.2)
[2017-05-01 15:33] LABS: CHLORIDE 100 mEq/L (99-109); POTASSIUM 3.9 mEq/L (3.7-5.4); SODIUM 139 mEq/L (136-147)
[2017-05-01 15:34] LABS: GLUCOSE 134 mg/dL (70-99)
[2017-05-01 15:36] LABS: ANION GAP 11 MEQ/L (2-14)
[2017-05-01 15:38] LABS: GFR ESTIMATE (CALCULATED) > 59 mL/min/
[2017-05-01 15:39] LABS: UREA NITROGEN (BUN) 15 mg/dL (9-23)
[2017-05-01 16:36] VITALS: BP 172/120
== END 2017-05-01 16:35 | disposition short-term general hospital (02) ==
LOC: EME 14:40
PROVIDERS: Emergency Medicine
DX: I63.9 Cerebral infarction, unspecified (principal); G81.94 Hemiplegia, unspecified affecting left nondominant side; I48.91 Unspecified atrial fibrillation; I11.0 Hypertensive heart disease with heart failure; E11.9 Type 2 diabetes mellitus without complications; Z79.4 Long term (current) use of insulin; Z79.01 Long term (current) use of anticoagulants; Z79.82 Long term (current) use of aspirin
CPT/HCPCS: 70450; 70496; 70498; 80048; 82150; 83690; 84484; 85025; 85610; 85730; 93005; 99281; 99285

== ENCOUNTER 2017-05-06 12:30 | Inpatient (IN) | payer OTHER ==
[~2017-05-06] VITALS: Ht 180.3 cm; Wt 132.7 kg
[2017-05-06 16:36] VITALS: BP 120/78
[2017-05-06] MEDS ORDERED: CARDURA4 MG PO (18:07)
[2017-05-06] MEDS ORDERED: ZESTRIL5 MG PO (18:09)
[2017-05-06] MEDS ORDERED: DEPAKENE250 MG PO (18:12)
[2017-05-06] MEDS ORDERED: CATAPRES0.1 MG PO (18:14)
[2017-05-06] MEDS ORDERED: HEPARIN SO5000 UNIT4 SC (18:16)
[2017-05-06] MEDS ORDERED: LIPITOR40 MG PO (18:20)
[2017-05-06] MEDS ORDERED: HUMALOG100 UNIT/2 SC (18:26)
[2017-05-06 21:42] LABS: POINT-OF-CARE METER ID UU13113720
[2017-05-06 23:17] VITALS: BP 109/70
[2017-05-07 05:39] VITALS: BP 119/77
[2017-05-07 06:25] LABS: HEMATOCRIT 39.4 % (38.0-50.0); MCH 27.9 PG (29.0-34.0); MCHC 32.5 G/DL (30.0-36.0); MCV 85.8 FL (86-99); MEAN PLAT.VOLUME 11.2 uM^3 (9.0-12.4); PLATELET COUNT 252 K/uL (156-360); RBC DIS.WIDTH-CV 18.6 % (11.8-14.6); RBC DIS.WIDTH-SD 56.9 % (39-53); RED BLOOD COUNT 4.59 M/uL (4.00-5.50); WHITE BLOOD COUNT 5.2 K/uL (4.1-10.2)
[2017-05-07 06:34] LABS: ALKALINE PHOSPHATASE 97 IU/L (3-129); ANION GAP 9 MEQ/L (2-14); CHLORIDE 102 MEQ/L (99-109); GFR ESTIMATE (CALCULATED) > 59 mL/min/; GLUCOSE 121 mg/dL (70-99); SAMPLE HEMOLYSIS CHECK 0; SAMPLE ICTERIC CHECK 0; SAMPLE LIPEMIA CHECK 0; SODIUM 140 MEQ/L (136-147); TOTAL BILIRUBIN 0.7 MG/DL (0.0-1.0); UREA NITROGEN (BUN) 16 mg/dL (9-23)
[2017-05-07 07:13] LABS: POINT-OF-CARE METER ID UU13113720; POINT-OF-CARE USER ID AHSSSJB31
[2017-05-07 10:05] VITALS: BP 121/87
[2017-05-07 11:41] LABS: POINT-OF-CARE METER ID UU13113720; POINT-OF-CARE USER ID AHSSSJB31
[2017-05-07 15:45] VITALS: BP 107/59
[2017-05-07 16:39] LABS: POINT-OF-CARE METER ID UU13113720
[2017-05-07 17:52] VITALS: BP 124/62
[2017-05-07 21:19] LABS: POINT-OF-CARE METER ID UU13113720
[2017-05-08 04:55] VITALS: BP 108/56
[2017-05-08 07:01] LABS: POINT-OF-CARE METER ID UU14174215; POINT-OF-CARE USER ID ENVGAF
[2017-05-08 07:49] VITALS: BP 141/80
[2017-05-08 11:03] LABS: POINT-OF-CARE METER ID UU14174215
[2017-05-08 15:29] VITALS: BP 115/66
[2017-05-08 16:27] LABS: POINT-OF-CARE METER ID UU13113720
[2017-05-08 21:18] LABS: POINT-OF-CARE METER ID UU14174215
[2017-05-09 05:07] VITALS: BP 85/61
[2017-05-09 07:03] LABS: POINT-OF-CARE METER ID UU13113720; POINT-OF-CARE USER ID AHSSSJB31
[2017-05-09 08:11] VITALS: BP 118/73
[2017-05-09 11:46] LABS: POINT-OF-CARE METER ID UU14174215; POINT-OF-CARE USER ID AHSSSJB31
[2017-05-09 16:01] VITALS: BP 97/58
[2017-05-09 16:05] LABS: POINT-OF-CARE METER ID UU13113720
[2017-05-09 20:58] LABS: POINT-OF-CARE METER ID UU14174215
[2017-05-10 05:50] VITALS: BP 172/80
[2017-05-10 07:36] LABS: POINT-OF-CARE METER ID UU13113720; POINT-OF-CARE USER ID AHSSSJB31
[2017-05-10 12:01] LABS: POINT-OF-CARE METER ID UU13113720; POINT-OF-CARE USER ID AHSSSJB31
[2017-05-10] MEDS ORDERED: VENTOLIN HFA18 GM IH (14:45)
[2017-05-10] MEDS ORDERED: ATORVASTATIN CA80 MG PO (14:45)
[2017-05-10] MEDS ORDERED: APRESOLINE100 MG PO ×2 (14:45)
[2017-05-10] MEDS ORDERED: SENNA PLUS TAB1 EACH PO (14:45)
[2017-05-10] MEDS ORDERED: METOPROLOL TART50 MG PO (14:45)
[2017-05-10] MEDS ORDERED: ZESTRIL5 MG PO (14:45)
[2017-05-10] MEDS ORDERED: DOXAZOSIN MESYLA4 MG PO ×2 (14:45)
[2017-05-10] MEDS ORDERED: VERAPAMIL HCL240 MG PO (14:45)
[2017-05-10] MEDS ORDERED: CLONIDINE HCL0.1 MG PO (14:45)
[2017-05-10] MEDS ORDERED: FLONASE16 G1 BOTH NARES (14:45)
[2017-05-10] MEDS ORDERED: LEVETIRACETAM500 MG PO ×2 (14:45→14:46)
[2017-05-10] MEDS ORDERED: ADVAIR HFA120 INHAL1 IH (14:45)
[2017-05-10] MEDS ORDERED: DIVALPROEX SOD500 MG PO ×2 (14:45→14:46)
[2017-05-10] MEDS ORDERED: GABAPENTIN600 MG PO (14:45)
[2017-05-10] MEDS ORDERED: FUROSEMIDE40 MG PO (14:45)
[2017-05-10 15:35] VITALS: BP 107/56
[2017-05-10 15:43] LABS: POINT-OF-CARE METER ID UU13113720
== END 2017-05-10 17:44 | DRG 91 ==
LOC: 3WEST 12:30
PROVIDERS: Physical Medicine & Rehabilitation Pain Medicine
PROC: F07M7ZZ Manual Therapy Techniques Treatment of Musculoskeletal System - Whole Body (ICD-10-PCS; principal; 2017-05-06)
DX: R47.1 Dysarthria and anarthria (principal); I63.511 Cerebral infarction due to unspecified occlusion or stenosis of right middle cerebral artery; I48.0 Paroxysmal atrial fibrillation; I50.9 Heart failure, unspecified; G40.909 Epilepsy, unspecified, not intractable, without status epilepticus; I42.2 Other hypertrophic cardiomyopathy; I27.2 Other secondary pulmonary hypertension; I11.0 Hypertensive heart disease with heart failure; R53.1 Weakness; E78.5 Hyperlipidemia, unspecified; J44.9 Chronic obstructive pulmonary disease, unspecified; Z86.74 Personal history of sudden cardiac arrest; Z68.41 Body mass index [BMI] 40.0-44.9, adult; I25.10 Atherosclerotic heart disease of native coronary artery without angina pectoris; E11.9 Type 2 diabetes mellitus without complications; G47.33 Obstructive sleep apnea (adult) (pediatric); F32.9 Major depressive disorder, single episode, unspecified; E66.9 Obesity, unspecified; Z91.14 Patient's other noncompliance with medication regimen; Z83.3 Family history of diabetes mellitus; Z82.5 Family history of asthma and other chronic lower respiratory diseases; Z82.49 Family history of ischemic heart disease and other diseases of the circulatory system
CPT/HCPCS: 71010; 80053; 82948; 85027; 92507 GN; 92523 GN; 94640; 94640 76; 97112 GO; 97530 GP; 99202; J1644; J1815

== ENCOUNTER 2017-07-03 21:39 | Inpatient (IN) | payer OTHER ==
[~2017-07-03] VITALS: Ht 180.3 cm; Wt 139.6 kg
[~2017-07-03 21:39] MED LIST changes: +ATORVASTATIN CA80 MG PO; +CARDURA4 MG PO; +CATAPRES0.1 MG PO; +DEPAKENE250 MG PO; +GABAPENTIN600 MG PO; +HEPARIN SO5000 UNIT4 SC; +HUMALOG100 UNIT/2 SC; +LIPITOR40 MG PO; +MOTRIN800 MG PO; +SENNA PLUS TAB1 EACH PO; +ZESTRIL5 MG PO
[2017-07-03 22:22] LABS: HEMATOCRIT 42.6 % (38.0-50.0); MCHC 32.9 G/DL (30.0-36.0); MCV 88.2 FL (86-99); MEAN PLAT.VOLUME 11.2 uM^3 (9.0-12.4); PLATELET COUNT 345 K/uL (156-360); RBC DIS.WIDTH-CV 16.6 % (11.8-14.6); RBC DIS.WIDTH-SD 53.3 % (39-53); RED BLOOD COUNT 4.83 M/uL (4.00-5.50); WHITE BLOOD COUNT 7.8 K/uL (4.1-10.2)
[2017-07-03 22:35] LABS: CHLORIDE 103 mEq/L (99-109); POTASSIUM 4.3 mEq/L (3.7-5.4); SODIUM 141 mEq/L (136-147)
[2017-07-03 22:36] LABS: GLUCOSE 176 mg/dL (70-99)
[2017-07-03 22:38] LABS: ANION GAP 14 MEQ/L (2-14)
[2017-07-03 22:40] LABS: GFR ESTIMATE (CALCULATED) > 59 mL/min/
[2017-07-03 22:41] LABS: UREA NITROGEN (BUN) 20 mg/dL (9-23)
[2017-07-03 22:44] LABS: TROP-I INTERPRETATION NEGATIVE; TROPONIN-I 0.02 ng/mL (0.0-0.30)
[2017-07-03 23:18] LABS: TOTAL BILIRUBIN 0.9 mg/dL (0.0-1.0)
[2017-07-03 23:19] LABS: ALKALINE PHOSPHATASE 111 IU/L (3-129)
[2017-07-03 23:21] LABS: DIRECT BILIRUBIN 0.3 mg/dL (0.0-0.3)
[2017-07-03 23:23] LABS: LIPASE 50 U/L (1.0-51.0)
[2017-07-04 00:15] LABS: INFLUENZA A VIRAL ANTIGEN NEGATIVE; INFLUENZA B VIRAL ANTIGEN NEGATIVE
[2017-07-04] MEDS ORDERED: LIPITOR80 MG PO (01:43)
[2017-07-04] MEDS ORDERED: IBUPROFEN800 MG PO (01:44)
[2017-07-04] MEDS ORDERED: LISINOPRIL5 MG PO (01:44)
[2017-07-04 02:17] VITALS: BP 132/79
[2017-07-04 05:35] LABS: CREATINE KINASE 328 IU/L (1-294); TOTAL CK 328 IU/L (1-294)
[2017-07-04 05:37] LABS: TROP-I INTERPRETATION NEGATIVE; TROPONIN-I 0.02 ng/mL (0.0-0.30)
[2017-07-04 06:07] LABS: CK-MB 3.7 ng/mL (0.0-4.9)
[2017-07-04 08:03] VITALS: BP 111/56
[2017-07-04 10:50] LABS: ADD MIUA? NO; BILIRUBIN NEGATIVE; BLOOD NEGATIVE; COLOR YELLOW ((YELLOW)); GLUCOSE (STRIP) NEGATIVE; KETONES NEGATIVE; LEUKOCYTES NEGATIVE; NITRITE NEGATIVE; PROTEIN (STRIP) 30; SPECIFIC GRAVITY 1.018 (1.000-1.030); UCUL ADDED? NO
[2017-07-04 12:00] VITALS: BP 93/54
[2017-07-04 15:11] VITALS: BP 116/59
[2017-07-04 16:53] LABS: POINT-OF-CARE METER ID UU14314088
[2017-07-04 20:57] LABS: POINT-OF-CARE METER ID UU14174216
[2017-07-04 21:00] VITALS: BP 131/59
[2017-07-04 22:40] VITALS: BP 123/59
[2017-07-05 04:20] VITALS: BP 93/56
[2017-07-05 06:08] LABS: EOSINOPHIL (%) 0 % (0-5); HEMATOCRIT 40.5 % (38.0-50.0); IMMATURE GRANULOCYTE (%) 0.8 % (0.0-0.7); IMMATURE GRANULOCYTE COUNT 0.2 K/uL; INSTRUMENT ABS NEUTROPHIL CT 18.8 K/uL; LYMPHOCYTE COUNT 0.5 K/uL (1.0-2.8); MCH 28.2 PG (29.0-34.0); MCHC 32.1 G/DL (30.0-36.0); MCV 87.9 FL (86-99); MEAN PLAT.VOLUME 11.8 uM^3 (9.0-12.4); MONOCYTE (%) 2.4 % (3-12); MONOCYTE COUNT 0.5 K/uL (0-0.8); NEUTROPHIL (%) 94.2 % (45-76); NEUTROPHIL COUNT 18.8 K/uL (1.8-6.4); PLATELET COUNT 322 K/uL (156-360); RBC DIS.WIDTH-CV 16.4 % (11.8-14.6); RBC DIS.WIDTH-SD 53.2 % (39-53); RED BLOOD COUNT 4.61 M/uL (4.00-5.50); WHITE BLOOD COUNT 19.9 K/uL (4.1-10.2)
[2017-07-05 06:48] LABS: ANION GAP 8 MEQ/L (2-14); CHLORIDE 97 MEQ/L (99-109); GFR ESTIMATE (CALCULATED) > 59 mL/min/; POTASSIUM 5.1 MEQ/L (3.7-5.4); SAMPLE HEMOLYSIS CHECK 0; SAMPLE ICTERIC CHECK 0; SAMPLE LIPEMIA CHECK 0; UREA NITROGEN (BUN) 26 mg/dL (9-23)
[2017-07-05 06:54] LABS: GLUCOSE 417 mg/dL (70-99); SODIUM 131 MEQ/L (136-147)
[2017-07-05 07:47] LABS: POINT-OF-CARE METER ID UU13113698
[2017-07-05 08:29] VITALS: BP 111/58
[2017-07-05 12:03] VITALS: BP 100/56
[2017-07-05 12:35] LABS: GLUCOSE 547 mg/dL (70-99)
[2017-07-05 15:31] VITALS: BP 120/58
[2017-07-05 18:18] LABS: GLUCOSE 662 mg/dL (70-99)
[2017-07-05 19:12] VITALS: BP 125/63
[2017-07-05 23:20] VITALS: BP 130/71
[2017-07-06 05:15] VITALS: BP 118/61
[2017-07-06 05:56] LABS: EOSINOPHIL (%) 0 % (0-5); HEMATOCRIT 38.8 % (38.0-50.0); IMMATURE GRANULOCYTE COUNT 0.2 K/uL; INSTRUMENT ABS NEUTROPHIL CT 19.4 K/uL; LYMPHOCYTE COUNT 0.8 K/uL (1.0-2.8); MCH 28.3 PG (29.0-34.0); MCHC 32.7 G/DL (30.0-36.0); MCV 86.6 FL (86-99); MEAN PLAT.VOLUME 11.8 uM^3 (9.0-12.4); MONOCYTE (%) 4.6 % (3-12); NEUTROPHIL (%) 90.5 % (45-76); NEUTROPHIL COUNT 19.4 K/uL (1.8-6.4); PLATELET COUNT 304 K/uL (156-360); RBC DIS.WIDTH-CV 16.2 % (11.8-14.6); RED BLOOD COUNT 4.48 M/uL (4.00-5.50); WHITE BLOOD COUNT 21.4 K/uL (4.1-10.2)
[2017-07-06 06:45] LABS: ANION GAP 12 MEQ/L (2-14); CHLORIDE 95 MEQ/L (99-109); GFR ESTIMATE (CALCULATED) > 59 mL/min/; POTASSIUM 4.3 MEQ/L (3.7-5.4); SAMPLE HEMOLYSIS CHECK 0; SAMPLE ICTERIC CHECK 0; SAMPLE LIPEMIA CHECK 0; SODIUM 133 MEQ/L (136-147); UREA NITROGEN (BUN) 30 mg/dL (9-23)
[2017-07-06 06:46] LABS: GLUCOSE 290 mg/dL (70-99)
[2017-07-06 07:52] VITALS: BP 112/62
[2017-07-06 11:27] LABS: POINT-OF-CARE METER ID UU14174216
[2017-07-06 11:45] VITALS: BP 90/52
[2017-07-06] MEDS ORDERED: LEVEMIR100 UNIT/2 SC (14:35)
[2017-07-06] MEDS ORDERED: TRAMADOL HCL50 MG PO (14:37)
[2017-07-06] MEDS ORDERED: LEVAQUIN500 MG PO (14:37)
[2017-07-06] MEDS ORDERED: PREDNISONE10 MG PO (14:37)
[2017-07-06 15:55] VITALS: BP 111/55
[2017-07-06 16:39] LABS: POINT-OF-CARE METER ID UU14174216
== END 2017-07-06 17:01 | disposition home or self-care (01) | DRG 191 ==
LOC: EME 21:39 → EDOF 07-04 00:05 → ENRESERV 07-04 00:30 → 4EAST 07-04 02:10
PROVIDERS: Emergency Medicine; Family Medicine
PROC: 5A09357 Assistance with Respiratory Ventilation, Less than 24 Consecutive Hours, Continuous Positive Airway Pressure (ICD-10-PCS; principal; 2017-07-05)
DX: J44.1 Chronic obstructive pulmonary disease with (acute) exacerbation (principal); G47.33 Obstructive sleep apnea (adult) (pediatric); E66.01 Morbid (severe) obesity due to excess calories; I48.0 Paroxysmal atrial fibrillation; I13.0 Hypertensive heart and chronic kidney disease with heart failure and stage 1 through stage 4 chronic kidney disease, or unspecified chronic kidney disease; I50.9 Heart failure, unspecified; N18.9 Chronic kidney disease, unspecified; G40.909 Epilepsy, unspecified, not intractable, without status epilepticus; E11.22 Type 2 diabetes mellitus with diabetic chronic kidney disease; E78.5 Hyperlipidemia, unspecified; I42.2 Other hypertrophic cardiomyopathy; Z86.73 Personal history of transient ischemic attack (TIA), and cerebral infarction without residual deficits; Z86.74 Personal history of sudden cardiac arrest; R09.02 Hypoxemia; E11.9 Type 2 diabetes mellitus without complications; I27.20 Pulmonary hypertension, unspecified; Z68.41 Body mass index [BMI] 40.0-44.9, adult
CPT/HCPCS: 71020; 80048; 80076; 81003; 82550; 82553; 82948; 83690; 83880; 84484; 84999; 85025; 85027; 87502; 93005; 94640; 94640 76; 94660; 94799; 99202; 99281; 99285; J1815; J1956; J2930; J3010; J7512

== ENCOUNTER 2017-07-30 07:58 | Inpatient (IN) | payer OTHER ==
[~2017-07-30] VITALS: Ht 180.3 cm; Wt 141.8 kg
[~2017-07-30 07:58] MED LIST changes: +IBUPROFEN800 MG PO; +LIPITOR80 MG PO; +LISINOPRIL5 MG PO; +PREDNISONE10 MG PO
[2017-07-30 08:43] LABS: HEMATOCRIT 39.3 % (38.0-50.0); MCH 28.3 PG (29.0-34.0); MCHC 32.6 G/DL (30.0-36.0); MCV 86.9 FL (86-99); PLATELET COUNT 289 K/uL (156-360); RBC DIS.WIDTH-CV 15.9 % (11.8-14.6); RED BLOOD COUNT 4.52 M/uL (4.00-5.50); WHITE BLOOD COUNT 4.6 K/uL (4.1-10.2)
[2017-07-30 08:56] LABS: CHLORIDE 102 mEq/L (99-109); POTASSIUM 3.4 mEq/L (3.7-5.4); SODIUM 138 mEq/L (136-147)
[2017-07-30 08:57] LABS: GLUCOSE 157 mg/dL (70-99)
[2017-07-30 08:59] LABS: ANION GAP 13 MEQ/L (2-14)
[2017-07-30 09:01] LABS: GFR ESTIMATE (CALCULATED) > 59 mL/min/
[2017-07-30 09:02] LABS: UREA NITROGEN (BUN) 11 mg/dL (9-23)
[2017-07-30 09:04] LABS: TROP-I INTERPRETATION NEGATIVE; TROPONIN-I 0.07 ng/mL (0.0-0.30)
[2017-07-30 16:28] LABS: TROP-I INTERPRETATION NEGATIVE; TROPONIN-I 0.07 ng/mL (0.0-0.30)
[2017-07-30] MEDS ORDERED: SENNA PLUS TAB1 EACH PO (17:39)
[2017-07-30] MEDS ORDERED: ALBUTEROL2.5 MG/3 M IH (17:40)
[2017-07-30] MEDS ORDERED: LEVEMIR100 UNIT/2 SC (17:40)
[2017-07-30 18:25] VITALS: BP 164/98
[2017-07-30 19:57] VITALS: BP 155/96
[2017-07-30 20:00] LABS: BASE EXCESS 4.1 mEq/L (-3 to +3); BICARBONATE 27.4 mEq/L (22-26); CARBOXY HGB 2.3 % (0-5); METHEMOGLOBIN 1.3 % (0-1.5); pH 7.49 (7.35-7.45)
[2017-07-30 20:02] LABS: COMMENTS - BLOOD GASES C+; DEVICE NRBM; FI02 100 %; O2 FLOW 15 L/MIN; PCO2 36 mm Hg (35-45); PO2 60 mm Hg (80-100); SITE RR; TOTAL RESP RATE 24 resp/min
[2017-07-30 20:25] VITALS: BP 136/85
[2017-07-30 20:44] LABS: TROP-I INTERPRETATION NEGATIVE
[2017-07-30 21:20] LABS: POINT-OF-CARE METER ID UU14174216
[2017-07-30 23:00] VITALS: BP 111/61
[2017-07-31 03:30] VITALS: BP 102/58
[2017-07-31 06:06] LABS: EOSINOPHIL (%) 0 % (0-5); HEMATOCRIT 40.8 % (38.0-50.0); IMMATURE GRANULOCYTE (%) 0.4 % (0.0-0.7); INSTRUMENT ABS NEUTROPHIL CT 6.4 K/uL; LYMPHOCYTE COUNT 0.6 K/uL (1.0-2.8); MCH 28.1 PG (29.0-34.0); MCHC 31.9 G/DL (30.0-36.0); MCV 88.1 FL (86-99); MONOCYTE (%) 2.9 % (3-12); MONOCYTE COUNT 0.2 K/uL (0-0.8); NEUTROPHIL (%) 88.3 % (45-76); NEUTROPHIL COUNT 6.4 K/uL (1.8-6.4); PLATELET COUNT 250 K/uL (156-360); RBC DIS.WIDTH-CV 15.9 % (11.8-14.6); RBC DIS.WIDTH-SD 51.8 % (39-53); RED BLOOD COUNT 4.63 M/uL (4.00-5.50); WHITE BLOOD COUNT 7.2 K/uL (4.1-10.2)
[2017-07-31 06:48] LABS: ANION GAP 14 MEQ/L (2-14); CHLORIDE 96 MEQ/L (99-109); SAMPLE HEMOLYSIS CHECK 0; SAMPLE ICTERIC CHECK 0; SAMPLE LIPEMIA CHECK 0; SODIUM 134 MEQ/L (136-147)
[2017-07-31 07:01] LABS: GFR ESTIMATE (CALCULATED) 44 mL/min/; GLUCOSE 270 mg/dL (70-99); POTASSIUM 4.3 MEQ/L (3.7-5.4); UREA NITROGEN (BUN) 22 mg/dL (9-23)
[2017-07-31 09:00] VITALS: BP 100/62
[2017-07-31 11:21] LABS: POINT-OF-CARE METER ID UU13113781
[2017-07-31 12:00] VITALS: BP 82/49
[2017-07-31 15:59] LABS: POINT-OF-CARE METER ID UU13113781
[2017-07-31 16:00] VITALS: BP 101/62
[2017-07-31 19:00] VITALS: BP 94/50
[2017-07-31 21:09] LABS: POINT-OF-CARE METER ID UU14174216
[2017-07-31 23:00] VITALS: BP 106/57
[2017-08-01 03:00] VITALS: BP 121/57
[2017-08-01 06:19] LABS: EOSINOPHIL (%) 0 % (0-5); HEMATOCRIT 36.9 % (38.0-50.0); IMMATURE GRANULOCYTE (%) 0.4 % (0.0-0.7); INSTRUMENT ABS NEUTROPHIL CT 9.7 K/uL; LYMPHOCYTE COUNT 0.5 K/uL (1.0-2.8); MCH 28.2 PG (29.0-34.0); MCHC 32.5 G/DL (30.0-36.0); MCV 86.8 FL (86-99); MEAN PLAT.VOLUME 11.9 uM^3 (9.0-12.4); MONOCYTE (%) 2.8 % (3-12); MONOCYTE COUNT 0.3 K/uL (0-0.8); NEUTROPHIL COUNT 9.7 K/uL (1.8-6.4); PLATELET COUNT 272 K/uL (156-360); RBC DIS.WIDTH-CV 15.9 % (11.8-14.6); RBC DIS.WIDTH-SD 50.6 % (39-53); RED BLOOD COUNT 4.25 M/uL (4.00-5.50); WHITE BLOOD COUNT 10.6 K/uL (4.1-10.2)
[2017-08-01 06:35] LABS: ANION GAP 15 MEQ/L (2-14); CHLORIDE 95 MEQ/L (99-109); GFR ESTIMATE (CALCULATED) 49 mL/min/ (58.99-99999); GLUCOSE 262 mg/dL (70-99); POTASSIUM 4.6 MEQ/L (3.7-5.4); SAMPLE HEMOLYSIS CHECK 0; SAMPLE ICTERIC CHECK 0; SAMPLE LIPEMIA CHECK 0; SODIUM 134 MEQ/L (136-147); UREA NITROGEN (BUN) 35 mg/dL (9-23)
[2017-08-01 08:25] LABS: INTERNAL CONTROL VALID? YES
[2017-08-01 09:00] VITALS: BP 120/67
[2017-08-01 10:54] LABS: POINT-OF-CARE METER ID UU14174216
[2017-08-01 16:13] LABS: POINT-OF-CARE METER ID UU14174216
[2017-08-01 19:44] VITALS: BP 130/72
[2017-08-01 21:03] LABS: POINT-OF-CARE METER ID UU13113781
[2017-08-01 23:18] VITALS: BP 145/78
[2017-08-02 04:18] VITALS: BP 125/80
[2017-08-02 06:13] LABS: ANION GAP 12 MEQ/L (2-14); CHLORIDE 96 MEQ/L (99-109); GFR ESTIMATE (CALCULATED) > 59 mL/min/ (58.99-99999); GLUCOSE 287 mg/dL (70-99); POTASSIUM 4.7 MEQ/L (3.7-5.4); SAMPLE HEMOLYSIS CHECK 0; SAMPLE ICTERIC CHECK 0; SAMPLE LIPEMIA CHECK 0; SODIUM 133 MEQ/L (136-147); UREA NITROGEN (BUN) 43 mg/dL (9-23)
[2017-08-02 06:47] LABS: EOSINOPHIL (%) 0 % (0-5); HEMATOCRIT 38.2 % (38.0-50.0); IMMATURE GRANULOCYTE (%) 1.3 % (0.0-0.7); IMMATURE GRANULOCYTE COUNT 0.2 K/uL; INSTRUMENT ABS NEUTROPHIL CT 11.7 K/uL; LYMPHOCYTE COUNT 0.9 K/uL (1.0-2.8); MCH 29.2 PG (29.0-34.0); MCV 88.6 FL (86-99); MEAN PLAT.VOLUME 12.1 uM^3 (9.0-12.4); MONOCYTE COUNT 0.5 K/uL (0-0.8); NEUTROPHIL COUNT 11.7 K/uL (1.8-6.4); PLATELET COUNT 264 K/uL (156-360); RBC DIS.WIDTH-SD 51.4 % (39-53); RED BLOOD COUNT 4.31 M/uL (4.00-5.50); WHITE BLOOD COUNT 13.3 K/uL (4.1-10.2)
[2017-08-02 07:30] VITALS: BP 127/68
[2017-08-02 08:31] LABS: POINT-OF-CARE METER ID UU14174216; POINT-OF-CARE USER ID NUTSLF44
[2017-08-02 12:00] VITALS: BP 158/97
[2017-08-02 12:59] LABS: POINT-OF-CARE METER ID UU14314088; POINT-OF-CARE USER ID NUTSLF44
[2017-08-02 16:00] VITALS: BP 130/86
[2017-08-02 17:46] LABS: POINT-OF-CARE METER ID UU14314088; POINT-OF-CARE USER ID NUTSLF44
[2017-08-02 19:38] VITALS: BP 151/92
[2017-08-02 21:45] LABS: POINT-OF-CARE METER ID UU13113698
[2017-08-02 23:52] VITALS: BP 130/91
[2017-08-03 05:01] VITALS: BP 130/89
[2017-08-03 05:56] LABS: HEMATOCRIT 36.9 % (38.0-50.0); MCH 28.2 PG (29.0-34.0); MCHC 32.5 G/DL (30.0-36.0); MCV 86.6 FL (86-99); MEAN PLAT.VOLUME 11.6 uM^3 (9.0-12.4); NRBC (%) 0.2 /100 WBC (0-0); PLATELET COUNT 278 K/uL (156-360); RBC DIS.WIDTH-CV 15.9 % (11.8-14.6); RBC DIS.WIDTH-SD 49.7 % (39-53); RED BLOOD COUNT 4.26 M/uL (4.00-5.50); WHITE BLOOD COUNT 13.2 K/uL (4.1-10.2)
[2017-08-03 06:21] LABS: ANION GAP 10 MEQ/L (2-14); CHLORIDE 96 MEQ/L (99-109); GFR ESTIMATE (CALCULATED) > 59 mL/min/ (58.99-99999); GLUCOSE 344 mg/dL (70-99); SAMPLE HEMOLYSIS CHECK 0; SAMPLE ICTERIC CHECK 0; SAMPLE LIPEMIA CHECK 0; SODIUM 133 MEQ/L (136-147); UREA NITROGEN (BUN) 39 mg/dL (9-23)
[2017-08-03 07:04] LABS: EOSINOPHIL (%) 0 % (0-5); HEMATOLOGY COMMENT 1 SMEAR COMPATIBLE; IMMATURE GRANULOCYTE (%) 1.1 % (0.0-0.7); IMMATURE GRANULOCYTE COUNT 0.2 K/uL; INSTRUMENT ABS NEUTROPHIL CT 11.2 K/uL; LYMPHOCYTE COUNT 1.1 K/uL (1.0-2.8); MONOCYTE (%) 5.7 % (3-12); MONOCYTE COUNT 0.8 K/uL (0-0.8); NEUTROPHIL (%) 84.4 % (45-76); NEUTROPHIL COUNT 11.2 K/uL (1.8-6.4); PLAT.SUFFICIENCY ADEQUATE
[2017-08-03 07:55] LABS: POINT-OF-CARE METER ID UU13113781
[2017-08-03 08:00] VITALS: BP 165/116
[2017-08-03 11:50] VITALS: BP 165/102
[2017-08-03 11:54] LABS: POINT-OF-CARE METER ID UU14314088
[2017-08-03] MEDS ORDERED: LEVEMIR100 UNIT/2 SC (13:14)
[2017-08-03] MEDS ORDERED: SPIRIVA RESPIMAT4 GM IH (13:16)
[2017-08-03] MEDS ORDERED: LEVAQUIN750 MG PO (13:16)
[2017-08-03] MEDS ORDERED: PREDNISONE10 MG PO (13:17)
[2017-08-04 14:11] LABS: POINT-OF-CARE METER ID UU14174216
== END 2017-08-03 16:55 | disposition home or self-care (01) | DRG 193 ==
LOC: EME 07:58 → 4EAST 10:30 → EDOF 10:30 → ENRESERV 10:34 → 5EAST 18:03 → ENRESERV 19:53 → 5EAST 19:55 → 4EAST 20:19
PROVIDERS: Emergency Medicine; Family Medicine; Hospitalist; Internal Medicine Pulmonary Disease
DX: J18.9 Pneumonia, unspecified organism (principal); J44.0 Chronic obstructive pulmonary disease with (acute) lower respiratory infection; J96.01 Acute respiratory failure with hypoxia; J45.901 Unspecified asthma with (acute) exacerbation; I42.2 Other hypertrophic cardiomyopathy; I27.20 Pulmonary hypertension, unspecified; I11.0 Hypertensive heart disease with heart failure; I50.32 Chronic diastolic (congestive) heart failure; E66.01 Morbid (severe) obesity due to excess calories; Z68.41 Body mass index [BMI] 40.0-44.9, adult; I48.0 Paroxysmal atrial fibrillation; I36.1 Nonrheumatic tricuspid (valve) insufficiency; I48.92 Unspecified atrial flutter; I95.9 Hypotension, unspecified; E11.9 Type 2 diabetes mellitus without complications; G47.33 Obstructive sleep apnea (adult) (pediatric); Z99.81 Dependence on supplemental oxygen; E78.5 Hyperlipidemia, unspecified; G40.909 Epilepsy, unspecified, not intractable, without status epilepticus; K21.9 Gastro-esophageal reflux disease without esophagitis; M19.90 Unspecified osteoarthritis, unspecified site; F32.9 Major depressive disorder, single episode, unspecified; F41.9 Anxiety disorder, unspecified; Z86.74 Personal history of sudden cardiac arrest; Z86.73 Personal history of transient ischemic attack (TIA), and cerebral infarction without residual deficits; Z77.22 Contact with and (suspected) exposure to environmental tobacco smoke (acute) (chronic); Z91.19 Patient's noncompliance with other medical treatment and regimen; Z79.4 Long term (current) use of insulin; Z79.01 Long term (current) use of anticoagulants
CPT/HCPCS: 36600; 71010; 71020; 80048; 82803; 82948; 83605; 83880; 84484; 85025; 85027; 87040; 87449; 87502; 93005; 93970; 94640; 94640 76; 94660; 94667; 94668; 94760; 94799; 99202; 99281; 99285; J1815; J1940; J1956; J2930; J3010; J7030

== ENCOUNTER 2017-08-08 08:14 | Inpatient (IN) | payer OTHER ==
[~2017-08-08] VITALS: Ht 210.8 cm; Wt 136.8 kg
[~2017-08-08 08:14] MED LIST changes: +ALBUTEROL2.5 MG/3 M IH; +LEVAQUIN750 MG PO; +SPIRIVA RESPIMAT4 GM IH
[2017-08-08 08:54] LABS: EOSINOPHIL (%) 0.2 % (0-5); HEMATOCRIT 39.2 % (38.0-50.0); IMMATURE GRANULOCYTE (%) 4.1 % (0.0-0.7); IMMATURE GRANULOCYTE COUNT 0.5 K/uL; INSTRUMENT ABS NEUTROPHIL CT 9.1 K/uL; LYMPHOCYTE COUNT 1.2 K/uL (1.0-2.8); MCH 28.7 PG (29.0-34.0); MCHC 33.2 G/DL (30.0-36.0); MCV 86.5 FL (86-99); MEAN PLAT.VOLUME 11.5 uM^3 (9.0-12.4); MONOCYTE (%) 7.9 % (3-12); MONOCYTE COUNT 0.9 K/uL (0-0.8); NEUTROPHIL (%) 77.2 % (45-76); NEUTROPHIL COUNT 9.1 K/uL (1.8-6.4); NRBC (%) 1.8 /100 WBC (0-0); PLATELET COUNT 295 K/uL (156-360); RBC DIS.WIDTH-SD 50.4 % (39-53); RED BLOOD COUNT 4.53 M/uL (4.00-5.50); WHITE BLOOD COUNT 11.8 K/uL (4.1-10.2)
[2017-08-08 09:14] LABS: ANION GAP 11 MEQ/L (2-14); CHLORIDE 97 MEQ/L (99-109); GFR ESTIMATE (CALCULATED) > 59 mL/min/ (58.99-99999); GLUCOSE 228 mg/dL (70-99); SAMPLE HEMOLYSIS CHECK 0; SAMPLE ICTERIC CHECK 0; SAMPLE LIPEMIA CHECK 0; SODIUM 138 MEQ/L (136-147)
[2017-08-08 09:15] LABS: ADD MIUA? NO; BILIRUBIN NEGATIVE; BLOOD NEGATIVE; COLOR YELLOW ((YELLOW)); GLUCOSE (STRIP) 50; KETONES NEGATIVE; LEUKOCYTES NEGATIVE; NITRITE NEGATIVE; PROTEIN (STRIP) 30; SPECIFIC GRAVITY 1.012 (1.000-1.030); UCUL ADDED? NO
[2017-08-08 09:18] LABS: POTASSIUM 3.5 MEQ/L (3.7-5.4); UREA NITROGEN (BUN) 18 mg/dL (9-23)
[2017-08-08 16:31] VITALS: BP 141/94
[2017-08-08 23:25] LABS: POINT-OF-CARE METER ID UU13113725
[2017-08-08 23:59] VITALS: BP 113/60
[2017-08-09 06:00] LABS: POINT-OF-CARE METER ID UU13113774
[2017-08-09 07:14] VITALS: BP 137/80
[2017-08-09 07:58] LABS: EOSINOPHIL (%) 0.3 % (0-5); HEMATOCRIT 35.2 % (38.0-50.0); IMMATURE GRANULOCYTE (%) 2.5 % (0.0-0.7); IMMATURE GRANULOCYTE COUNT 0.3 K/uL; INSTRUMENT ABS NEUTROPHIL CT 7.4 K/uL; LYMPHOCYTE COUNT 1.5 K/uL (1.0-2.8); MCH 28.3 PG (29.0-34.0); MCHC 32.1 G/DL (30.0-36.0); MCV 88.2 FL (86-99); MEAN PLAT.VOLUME 10.8 uM^3 (9.0-12.4); MONOCYTE COUNT 0.7 K/uL (0-0.8); NEUTROPHIL (%) 74.8 % (45-76); NEUTROPHIL COUNT 7.4 K/uL (1.8-6.4); NRBC (%) 0.8 /100 WBC (0-0); PLATELET COUNT 257 K/uL (156-360); RBC DIS.WIDTH-CV 15.9 % (11.8-14.6); RBC DIS.WIDTH-SD 50.8 % (39-53); RED BLOOD COUNT 3.99 M/uL (4.00-5.50); WHITE BLOOD COUNT 9.9 K/uL (4.1-10.2)
[2017-08-09 08:26] LABS: ANION GAP 7 MEQ/L (2-14); CHLORIDE 97 MEQ/L (99-109); GFR ESTIMATE (CALCULATED) > 59 mL/min/ (58.99-99999); GLUCOSE 293 mg/dL (70-99); POTASSIUM 3.6 MEQ/L (3.7-5.4); SAMPLE HEMOLYSIS CHECK 0; SAMPLE ICTERIC CHECK 0; SAMPLE LIPEMIA CHECK 0; SODIUM 135 MEQ/L (136-147); UREA NITROGEN (BUN) 20 mg/dL (9-23)
[2017-08-09 11:33] LABS: POINT-OF-CARE METER ID UU13113725
[2017-08-09 15:00] VITALS: BP 104/64
[2017-08-09 16:38] LABS: POINT-OF-CARE METER ID UU13113725
[2017-08-09 21:20] LABS: POINT-OF-CARE METER ID UU13113725
[2017-08-09 23:20] VITALS: BP 131/63
[2017-08-10 06:18] LABS: POINT-OF-CARE METER ID UU13113725
[2017-08-10 06:38] LABS: EOSINOPHIL (%) 0.6 % (0-5); EOSINOPHIL COUNT 0.1 K/uL (0-0.3); IMMATURE GRANULOCYTE (%) 1.8 % (0.0-0.7); IMMATURE GRANULOCYTE COUNT 0.2 K/uL; INSTRUMENT ABS NEUTROPHIL CT 8.5 K/uL; LYMPHOCYTE COUNT 1.5 K/uL (1.0-2.8); MCH 28.5 PG (29.0-34.0); MCV 89.1 FL (86-99); MEAN PLAT.VOLUME 11.6 uM^3 (9.0-12.4); MONOCYTE COUNT 0.7 K/uL (0-0.8); NEUTROPHIL (%) 77.7 % (45-76); NEUTROPHIL COUNT 8.5 K/uL (1.8-6.4); NRBC (%) 0.8 /100 WBC (0-0); PLATELET COUNT 280 K/uL (156-360); RBC DIS.WIDTH-SD 51.8 % (39-53); RED BLOOD COUNT 3.93 M/uL (4.00-5.50)
[2017-08-10 07:09] LABS: ANION GAP 11 MEQ/L (2-14); CHLORIDE 101 MEQ/L (99-109); GFR ESTIMATE (CALCULATED) > 59 mL/min/ (58.99-99999); GLUCOSE 186 mg/dL (70-99); POTASSIUM 3.8 MEQ/L (3.7-5.4); SAMPLE HEMOLYSIS CHECK 0; SAMPLE ICTERIC CHECK 0; SAMPLE LIPEMIA CHECK 0; SODIUM 141 MEQ/L (136-147); UREA NITROGEN (BUN) 22 mg/dL (9-23)
[2017-08-10 07:26] VITALS: BP 120/67
[2017-08-10 11:25] LABS: POINT-OF-CARE METER ID UU13113725
[2017-08-10 16:10] VITALS: BP 102/59
[2017-08-10 16:46] LABS: GLUCOSE 244 mg/dL (70-99)
[2017-08-10 20:59] LABS: POINT-OF-CARE METER ID UU13113725
[2017-08-11 00:30] VITALS: BP 129/82
[2017-08-11 06:02] LABS: POINT-OF-CARE METER ID UU13113774
[2017-08-11 06:39] LABS: GFR ESTIMATE (CALCULATED) > 59 mL/min/ (58.99-99999); UREA NITROGEN (BUN) 17 mg/dL (9-23)
[2017-08-11 07:35] VITALS: BP 140/96
[2017-08-11 10:25] LABS: POINT-OF-CARE METER ID UU13113725
[2017-08-11 10:37] LABS: POINT-OF-CARE METER ID UU13113774
[2017-08-11 16:08] LABS: POINT-OF-CARE METER ID UU13113725
[2017-08-11 16:30] VITALS: BP 109/65
[2017-08-11 18:45] VITALS: BP 135/80
[2017-08-11 20:03] VITALS: BP 150/93
[2017-08-11 21:15] LABS: POINT-OF-CARE METER ID UU13113774
[2017-08-11 23:41] VITALS: BP 139/87
[2017-08-12 04:18] VITALS: BP 128/82
[2017-08-12 06:40] LABS: POINT-OF-CARE METER ID UU13113774
[2017-08-12 07:51] VITALS: BP 128/83
[2017-08-12 09:02] LABS: EOSINOPHIL (%) 0.7 % (0-5); EOSINOPHIL COUNT 0.1 K/uL (0-0.3); HEMATOCRIT 31.8 % (38.0-50.0); IMMATURE GRANULOCYTE (%) 0.7 % (0.0-0.7); IMMATURE GRANULOCYTE COUNT 0.1 K/uL; INSTRUMENT ABS NEUTROPHIL CT 5.4 K/uL; MCH 28.3 PG (29.0-34.0); MCHC 32.1 G/DL (30.0-36.0); MCV 88.3 FL (86-99); MEAN PLAT.VOLUME 10.9 uM^3 (9.0-12.4); MONOCYTE (%) 7.1 % (3-12); MONOCYTE COUNT 0.5 K/uL (0-0.8); NEUTROPHIL (%) 76.8 % (45-76); NEUTROPHIL COUNT 5.4 K/uL (1.8-6.4); NRBC (%) 0.6 /100 WBC (0-0); PLATELET COUNT 242 K/uL (156-360); RBC DIS.WIDTH-CV 16.5 % (11.8-14.6); RBC DIS.WIDTH-SD 52.6 % (39-53); WHITE BLOOD COUNT 7.1 K/uL (4.1-10.2)
[2017-08-12 09:58] LABS: ANION GAP 9 MEQ/L (2-14); CHLORIDE 105 MEQ/L (99-109); GFR ESTIMATE (CALCULATED) > 59 mL/min/ (58.99-99999); GLUCOSE 134 mg/dL (70-99); POTASSIUM 3.6 MEQ/L (3.7-5.4); SAMPLE HEMOLYSIS CHECK 0; SAMPLE ICTERIC CHECK 0; SAMPLE LIPEMIA CHECK 0; SODIUM 143 MEQ/L (136-147); UREA NITROGEN (BUN) 14 mg/dL (9-23)
[2017-08-12 11:26] LABS: POINT-OF-CARE METER ID UU13113774
[2017-08-12 11:28] VITALS: BP 153/86
[2017-08-12 15:39] VITALS: BP 113/65
[2017-08-12 16:36] LABS: POINT-OF-CARE METER ID UU13113774
[2017-08-12 21:04] LABS: POINT-OF-CARE METER ID UU13113774
[2017-08-12 21:40] VITALS: BP 144/69
[2017-08-12 23:57] VITALS: BP 148/83
[2017-08-13 05:38] LABS: EOSINOPHIL (%) 0.4 % (0-5); HEMATOCRIT 31.3 % (38.0-50.0); IMMATURE GRANULOCYTE (%) 0.7 % (0.0-0.7); IMMATURE GRANULOCYTE COUNT 0.1 K/uL; INSTRUMENT ABS NEUTROPHIL CT 5.7 K/uL; MCH 27.8 PG (29.0-34.0); MCHC 31.3 G/DL (30.0-36.0); MCV 88.9 FL (86-99); MEAN PLAT.VOLUME 10.8 uM^3 (9.0-12.4); MONOCYTE (%) 8.2 % (3-12); MONOCYTE COUNT 0.6 K/uL (0-0.8); NEUTROPHIL (%) 76.8 % (45-76); NEUTROPHIL COUNT 5.7 K/uL (1.8-6.4); NRBC (%) 0.8 /100 WBC (0-0); PLATELET COUNT 210 K/uL (156-360); RBC DIS.WIDTH-CV 16.4 % (11.8-14.6); RBC DIS.WIDTH-SD 52.5 % (39-53); RED BLOOD COUNT 3.52 M/uL (4.00-5.50); WHITE BLOOD COUNT 7.4 K/uL (4.1-10.2)
[2017-08-13 06:19] LABS: ANION GAP 9 MEQ/L (2-14); CHLORIDE 101 MEQ/L (99-109); GFR ESTIMATE (CALCULATED) > 59 mL/min/ (58.99-99999); GLUCOSE 224 mg/dL (70-99); POTASSIUM 3.5 MEQ/L (3.7-5.4); SAMPLE HEMOLYSIS CHECK 0; SAMPLE ICTERIC CHECK 0; SAMPLE LIPEMIA CHECK 0; SODIUM 138 MEQ/L (136-147); UREA NITROGEN (BUN) 14 mg/dL (9-23)
[2017-08-13 06:46] LABS: POINT-OF-CARE METER ID UU13113725
[2017-08-13 07:55] VITALS: BP 138/83
[2017-08-13 11:18] LABS: POINT-OF-CARE METER ID UU13113725
[2017-08-13 15:41] VITALS: BP 132/65
[2017-08-13 16:31] LABS: POINT-OF-CARE METER ID UU13113774
[2017-08-13 20:51] VITALS: BP 151/94
[2017-08-13 22:12] LABS: POINT-OF-CARE METER ID UU13113774
[2017-08-13 23:35] VITALS: BP 153/79
[2017-08-14 06:05] LABS: POINT-OF-CARE METER ID UU13113774
[2017-08-14 06:09] LABS: EOSINOPHIL (%) 0.3 % (0-5); HEMATOCRIT 32.2 % (38.0-50.0); IMMATURE GRANULOCYTE (%) 0.5 % (0.0-0.7); IMMATURE GRANULOCYTE COUNT 0.1 K/uL; INSTRUMENT ABS NEUTROPHIL CT 7.2 K/uL; LYMPHOCYTE COUNT 1.2 K/uL (1.0-2.8); MCH 28.4 PG (29.0-34.0); MCV 88.7 FL (86-99); MEAN PLAT.VOLUME 11.2 uM^3 (9.0-12.4); MONOCYTE COUNT 0.7 K/uL (0-0.8); NEUTROPHIL (%) 77.9 % (45-76); NEUTROPHIL COUNT 7.2 K/uL (1.8-6.4); NRBC (%) 0.5 /100 WBC (0-0); PLATELET COUNT 233 K/uL (156-360); RBC DIS.WIDTH-CV 16.6 % (11.8-14.6); RBC DIS.WIDTH-SD 52.8 % (39-53); RED BLOOD COUNT 3.63 M/uL (4.00-5.50); WHITE BLOOD COUNT 9.2 K/uL (4.1-10.2)
[2017-08-14 06:54] LABS: ANION GAP 10 MEQ/L (2-14); CHLORIDE 99 MEQ/L (99-109); GFR ESTIMATE (CALCULATED) > 59 mL/min/ (58.99-99999); POTASSIUM 3.3 MEQ/L (3.7-5.4); SAMPLE HEMOLYSIS CHECK 0; SAMPLE ICTERIC CHECK 0; SAMPLE LIPEMIA CHECK 0; SODIUM 139 MEQ/L (136-147); UREA NITROGEN (BUN) 11 mg/dL (9-23)
[2017-08-14 06:56] LABS: GLUCOSE 120 mg/dL (70-99)
[2017-08-14 07:40] VITALS: BP 131/65
[2017-08-14 10:54] LABS: POINT-OF-CARE METER ID UU13113725
[2017-08-14] MEDS ORDERED: AUGMENTIN875 MG PO (13:09)
[2017-08-14] MEDS ORDERED: OXYCODONE HCL5 MG PO (13:09)
[2017-08-14] MEDS ORDERED: DOXYCYCLINE HY100 M3 PO (13:09)
== END 2017-08-14 17:28 | disposition home or self-care (01) | DRG 194 ==
LOC: EME 08:14 → 5EAST 12:54 → EDOF 12:54 → ENRESERV 12:58 → 5EAST 16:21
PROVIDERS: Emergency Medicine; Family Medicine
DX: J18.9 Pneumonia, unspecified organism (principal); J44.1 Chronic obstructive pulmonary disease with (acute) exacerbation; J44.0 Chronic obstructive pulmonary disease with (acute) lower respiratory infection; I48.0 Paroxysmal atrial fibrillation; I42.2 Other hypertrophic cardiomyopathy; I11.0 Hypertensive heart disease with heart failure; E11.9 Type 2 diabetes mellitus without complications; E87.6 Hypokalemia; E66.01 Morbid (severe) obesity due to excess calories; E78.5 Hyperlipidemia, unspecified; I42.1 Obstructive hypertrophic cardiomyopathy; G47.33 Obstructive sleep apnea (adult) (pediatric); I27.20 Pulmonary hypertension, unspecified; Z86.74 Personal history of sudden cardiac arrest; I50.9 Heart failure, unspecified; Y95 Nosocomial condition; G40.909 Epilepsy, unspecified, not intractable, without status epilepticus; K21.9 Gastro-esophageal reflux disease without esophagitis; Z68.41 Body mass index [BMI] 40.0-44.9, adult; D64.9 Anemia, unspecified; R09.02 Hypoxemia; Z86.73 Personal history of transient ischemic attack (TIA), and cerebral infarction without residual deficits; Z87.01 Personal history of pneumonia (recurrent); Z79.4 Long term (current) use of insulin
CPT/HCPCS: 71010; 71020; 71275; 80048; 80202; 81003; 82565; 82948; 83605; 84520; 84999; 85025; 87040; 87070; 87106; 87205; 87502; 93005; 94640; 94640 76; 94660; 94799; 99202; 99281; 99284; J1815; J2270; J2543; J3370; J7030; J7050

== ENCOUNTER 2017-08-16 00:49 | Inpatient (IN) | payer OTHER ==
[2017-08-16] VITALS (17 sets, daily range): BP systolic 89–135; BP diastolic 61–91
[~2017-08-16] VITALS: Ht 180.3 cm; Wt 145.0 kg
[~2017-08-16 00:49] MED LIST changes: +DOXYCYCLINE HY100 M3 PO; +OXYCODONE HCL5 MG PO
[2017-08-16 01:13] LABS: HEMATOCRIT 34.2 % (38.0-50.0); HEMOGLOBIN 11.1 G/DL (12.5-16.6); MCH 29.1 PG (29.0-34.0); MCHC 32.5 G/DL (30.0-36.0); MCV 89.5 FL (86-99); NRBC (%) 1.2 /100 WBC (0-0); PLATELET COUNT 257 K/uL (156-360); RBC DIS.WIDTH-SD 54.4 % (39-53); RED BLOOD COUNT 3.82 M/uL (4.00-5.50); WHITE BLOOD COUNT 15.9 K/uL (4.1-10.2)
[2017-08-16 01:14] LABS: CARBON DIOXIDE (BICARBONATE) 32.5 MEQ/L (20-31)
[2017-08-16 01:27] LABS: CHLORIDE 97 mEq/L (99-109); POTASSIUM 3.9 mEq/L (3.7-5.4); SODIUM 138 mEq/L (136-147)
[2017-08-16 01:29] LABS: GLUCOSE 225 mg/dL (70-99)
[2017-08-16 01:33] LABS: CREATININE 1.6 mg/dL (0.6-1.3); GFR ESTIMATE (CALCULATED) > 59 mL/min/ (58.99-99999)
[2017-08-16 01:34] LABS: UREA NITROGEN (BUN) 17 mg/dL (9-23)
[2017-08-16 01:35] LABS: TROP-I INTERPRETATION NEGATIVE; TROPONIN-I 0.05 ng/mL (0.0-0.30)
[2017-08-16 08:53] LABS: MAGNESIUM 1.1 mg/dL (1.3-2.7)
[2017-08-16 08:58] LABS: PHOSPHORUS 3.7 mg/dL (2.5-4.9)
[2017-08-16 12:24] LABS: BASE EXCESS 11.3 mEq/L (-3 to +3); CARBOXY HGB 1.7 % (0-5); METHEMOGLOBIN 1.4 % (0-1.5); pH 7.53 (7.35-7.45)
[2017-08-16 12:25] LABS: BICARBONATE 35.1 mEq/L (22-26); COMMENTS - BLOOD GASES A+C+; DEVICE MASK VENT; FI02 80 %; PCO2 42 mm Hg (35-45); PEEP 8 CM/H20; PO2 101 mm Hg (80-100); PRES. SUPPORT 18 CM/H2O; SITE LR; TOTAL RESP RATE 29 resp/min
[2017-08-17] VITALS (24 sets, daily range): BP systolic 75–129; BP diastolic 45–82
[2017-08-17 05:13] LABS: CHLORIDE 96 mEq/L (99-109); POTASSIUM 3.8 mEq/L (3.7-5.4); SODIUM 138 mEq/L (136-147)
[2017-08-17 05:14] LABS: GLUCOSE 132 mg/dL (70-99)
[2017-08-17 05:18] LABS: GFR ESTIMATE (CALCULATED) 36 mL/min/ (58.99-99999)
[2017-08-17 05:19] LABS: CREATININE 2.5 mg/dL (0.6-1.3); UREA NITROGEN (BUN) 28 mg/dL (9-23)
[2017-08-17 18:27] LABS: BASE EXCESS 0.8 mEq/L (-3 to +3); BICARBONATE 25.3 mEq/L (22-26); CARBOXY HGB 2.2 % (0-5); COMMENTS - BLOOD GASES A+C+; DEVICE VENT; FI02 100 %; METHEMOGLOBIN 1.5 % (0-1.5); MODE AC/VC; PCO2 39 mm Hg (35-45); PO2 323 mm Hg (80-100); SITE RR; pH 7.42 (7.35-7.45)
[2017-08-17 18:28] LABS: MECHANICAL RATE 18 resp/min; PEEP 8 CM/H20; TIDAL VOLUME 550 ML; TOTAL RESP RATE 18 resp/min
[2017-08-17 18:39] LABS: BASOPHIL (%) 0.1 % (0-1); EOSINOPHIL (%) 0.1 % (0-5); HEMATOCRIT 28.4 % (38.0-50.0); HEMOGLOBIN 9.1 G/DL (12.5-16.6); IMMATURE GRANULOCYTE (%) 1.5 % (0.0-0.7); LYMPHOCYTE (%) 12.1 % (15-42); LYMPHOCYTE COUNT 1.8 K/uL (1.0-2.8); MCH 29.7 PG (29.0-34.0); MCV 92.8 FL (86-99); NEUTROPHIL (%) 79.2 % (45-76); NEUTROPHIL COUNT 11.5 K/uL (1.8-6.4); NRBC (%) 1.2 /100 WBC (0-0); PLATELET COUNT 220 K/uL (156-360); RBC DIS.WIDTH-CV 17.5 % (11.8-14.6); RED BLOOD COUNT 3.06 M/uL (4.00-5.50); WHITE BLOOD COUNT 14.5 K/uL (4.1-10.2)
[2017-08-17 18:53] LABS: ALBUMIN 3.3 G/DL (3.2-4.8); CHLORIDE 91 MEQ/L (99-109); DIRECT BILIRUBIN 0.8 mg/dL (0.0-0.3); MAGNESIUM 1.8 mg/dl (1.3-2.7); POTASSIUM 4.2 MEQ/L (3.7-5.4); SODIUM 135 MEQ/L (136-147); TOTAL BILIRUBIN 2.7 MG/DL (0.0-1.0)
[2017-08-17 18:56] LABS: TROP-I INTERPRETATION NEGATIVE
[2017-08-17 18:58] LABS: PTT 35.7 SEC (25-37)
[2017-08-17 19:06] LABS: ALKALINE PHOSPHATASE 62 IU/L (3-129); ALT (GPT) 47 IU/L (3-49); AST (GOT) 64 IU/L (2-34); GLUCOSE 182 mg/dL (70-99); PHOSPHORUS 6.6 mg/dL (2.5-4.9); TOTAL PROTEIN 6.7 G/DL (6.4-8.3); UREA NITROGEN (BUN) 34 mg/dL (9-23)
[2017-08-17 19:07] LABS: CREATININE 3.3 MG/DL (0.6-1.3); GFR ESTIMATE (CALCULATED) 26 mL/min/ (58.99-99999)
[2017-08-17 19:17] LABS: INTER. NORMALIZED RATIO 2.8
[2017-08-18] VITALS (27 sets, daily range): BP systolic 71–157; BP diastolic 53–93
[2017-08-18 00:09] LABS: BASE EXCESS 0.9 mEq/L (-3 to +3); BICARBONATE 25.2 mEq/L (22-26); CARBOXY HGB 1.7 % (0-5); METHEMOGLOBIN 1.5 % (0-1.5); PCO2 38 mm Hg (35-45); pH 7.43 (7.35-7.45)
[2017-08-18 00:10] LABS: COMMENTS - BLOOD GASES C+; DEVICE VENT; FI02 80 %; MECHANICAL RATE 18 resp/min; MODE AC; PEEP 8 CM/H20; PO2 210 mm Hg (80-100); SITE A-LINE; TIDAL VOLUME 550 ML; TOTAL RESP RATE 18 resp/min
[2017-08-18 00:39] LABS: BASOPHIL (%) 0.1 % (0-1); EOSINOPHIL (%) 0 % (0-5); HEMATOCRIT 25.6 % (38.0-50.0); HEMOGLOBIN 8.2 G/DL (12.5-16.6); IMMATURE GRANULOCYTE (%) 1.9 % (0.0-0.7); LYMPHOCYTE (%) 5.3 % (15-42); LYMPHOCYTE COUNT 0.6 K/uL (1.0-2.8); MCV 90.5 FL (86-99); MONOCYTE (%) 4.7 % (3-12); MONOCYTE COUNT 0.6 K/uL (0-0.8); NEUTROPHIL COUNT 10.4 K/uL (1.8-6.4); NRBC (%) 0.8 /100 WBC (0-0); PLATELET COUNT 235 K/uL (156-360); RBC DIS.WIDTH-CV 17.5 % (11.8-14.6); RBC DIS.WIDTH-SD 56.7 % (39-53); RED BLOOD COUNT 2.83 M/uL (4.00-5.50); WHITE BLOOD COUNT 11.8 K/uL (4.1-10.2)
[2017-08-18 00:48] LABS: ALBUMIN 2.8 g/dL (3.2-4.8); CHLORIDE 94 mEq/L (99-109); SODIUM 134 mEq/L (136-147)
[2017-08-18 00:50] LABS: GLUCOSE 184 mg/dL (70-99)
[2017-08-18 00:55] LABS: GFR ESTIMATE (CALCULATED) 21 mL/min/ (58.99-99999); MAGNESIUM 1.4 mg/dL (1.3-2.7); PHOSPHORUS 6.9 mg/dL (2.5-4.9); POTASSIUM 5.3 mEq/L (3.7-5.4); UREA NITROGEN (BUN) 39 mg/dL (9-23)
[2017-08-18 01:33] LABS: BASOPHIL (%) 0.1 % (0-1); CARBON DIOXIDE (BICARBONATE) 25.7 MEQ/L (20-31); EOSINOPHIL (%) 0 % (0-5); HEMATOCRIT 27.3 % (38.0-50.0); HEMOGLOBIN 8.7 G/DL (12.5-16.6); IMMATURE GRANULOCYTE (%) 1.6 % (0.0-0.7); LYMPHOCYTE (%) 5.3 % (15-42); LYMPHOCYTE COUNT 0.7 K/uL (1.0-2.8); MCH 28.8 PG (29.0-34.0); MCHC 31.9 G/DL (30.0-36.0); MCV 90.4 FL (86-99); MONOCYTE COUNT 0.7 K/uL (0-0.8); NEUTROPHIL COUNT 11.3 K/uL (1.8-6.4); NRBC (%) 0.8 /100 WBC (0-0); PLATELET COUNT 239 K/uL (156-360); RBC DIS.WIDTH-CV 17.7 % (11.8-14.6); RBC DIS.WIDTH-SD 57.3 % (39-53); RED BLOOD COUNT 3.02 M/uL (4.00-5.50); WHITE BLOOD COUNT 12.9 K/uL (4.1-10.2)
[2017-08-18 01:50] LABS: INTER. NORMALIZED RATIO 3.1
[2017-08-18 01:52] LABS: PTT 33.6 SEC (25-37)
[2017-08-18 01:54] LABS: CHLORIDE 93 mEq/L (99-109); POTASSIUM 5.2 mEq/L (3.7-5.4); SODIUM 133 mEq/L (136-147)
[2017-08-18 01:55] LABS: MAGNESIUM 1.4 mg/dL (1.3-2.7)
[2017-08-18 01:56] LABS: GLUCOSE 182 mg/dL (70-99)
[2017-08-18 02:00] LABS: CREATININE 4.1 mg/dL (0.6-1.3); GFR ESTIMATE (CALCULATED) 20 mL/min/ (58.99-99999); PHOSPHORUS 7.1 mg/dL (2.5-4.9)
[2017-08-18 02:01] LABS: UREA NITROGEN (BUN) 41 mg/dL (9-23)
[2017-08-18 02:03] LABS: TROP-I INTERPRETATION NEGATIVE; TROPONIN-I 0.24 ng/mL (0.0-0.30)
[2017-08-18 02:06] LABS: BASE EXCESS 1.4 mEq/L (-3 to +3); BICARBONATE 26.6 mEq/L (22-26); CARBOXY HGB 1.7 % (0-5); COMMENTS - BLOOD GASES VBG; METHEMOGLOBIN 2.1 % (0-1.5); PCO2 44 mm Hg (35-45); SITE RN DRAW; pH 7.39 (7.35-7.45)
[2017-08-18 02:07] LABS: DEVICE VENT; FI02 50 %; MECHANICAL RATE 18 resp/min; MODE AC; PEEP 8 CM/H20; PO2 < 32 mm Hg (80-100); TIDAL VOLUME 550 ML; TOTAL RESP RATE 18 resp/min
[2017-08-18 02:08] LABS: CK-MB 4.8 ng/mL (0.0-4.9); CKMB RELATIVE INDEX 0.4 (0.0-3.9)
[2017-08-18 02:15] LABS: TOTAL CK 1067 IU/L (1-294)
[2017-08-18 02:16] LABS: CREATINE KINASE 1067 IU/L (1-294)
[2017-08-18 06:14] LABS: BASE EXCESS -3.3 mEq/L (-3 to +3); BICARBONATE 22.1 mEq/L (22-26); CARBOXY HGB 1.9 % (0-5); METHEMOGLOBIN 1.8 % (0-1.5); PCO2 40 mm Hg (35-45); pH 7.35 (7.35-7.45)
[2017-08-18 06:15] LABS: BASOPHIL (%) 0.2 % (0-1); EOSINOPHIL (%) 0 % (0-5); HEMATOCRIT 30.1 % (38.0-50.0); HEMOGLOBIN 9.5 G/DL (12.5-16.6); LYMPHOCYTE (%) 7.5 % (15-42); MCH 28.9 PG (29.0-34.0); MCHC 31.6 G/DL (30.0-36.0); MCV 91.5 FL (86-99); MONOCYTE (%) 4.7 % (3-12); MONOCYTE COUNT 0.6 K/uL (0-0.8); NEUTROPHIL (%) 86.6 % (45-76); NEUTROPHIL COUNT 11.7 K/uL (1.8-6.4); NRBC (%) 1.1 /100 WBC (0-0); PLATELET COUNT 230 K/uL (156-360); RBC DIS.WIDTH-CV 17.7 % (11.8-14.6); RBC DIS.WIDTH-SD 57.9 % (39-53); RED BLOOD COUNT 3.29 M/uL (4.00-5.50); WHITE BLOOD COUNT 13.5 K/uL (4.1-10.2)
[2017-08-18 06:15] LABS: COMMENTS - BLOOD GASES C+; DEVICE VENT; FI02 40 %; MECHANICAL RATE 18 resp/min; MODE AC; PEEP 8 CM/H20; PO2 47 mm Hg (80-100); SITE A-LINE; TIDAL VOLUME 550 ML; TOTAL RESP RATE 32 resp/min
[2017-08-18 06:20] LABS: INTER. NORMALIZED RATIO 2.8
[2017-08-18 06:23] LABS: PTT 35.8 SEC (25-37)
[2017-08-18 07:02] LABS: TROP-I INTERPRETATION INDETERMINATE; TROPONIN-I 0.31 ng/mL (0.0-0.30)
[2017-08-18 07:14] LABS: ALBUMIN 3.1 G/DL (3.2-4.8); CHLORIDE 93 MEQ/L (99-109); CREATINE KINASE 989 IU/L (1-294); CREATININE 4.2 MG/DL (0.6-1.3); GFR ESTIMATE (CALCULATED) 20 mL/min/ (58.99-99999); GLUCOSE 208 mg/dL (70-99); MAGNESIUM 1.8 mg/dl (1.3-2.7); PHOSPHORUS 6.8 mg/dL (2.5-4.9); POTASSIUM 4.6 MEQ/L (3.7-5.4); SODIUM 136 MEQ/L (136-147); TOTAL CK 989 IU/L (1-294); UREA NITROGEN (BUN) 48 mg/dL (9-23)
[2017-08-18 07:31] LABS: CKMB RELATIVE INDEX 0.6 (0.0-3.9)
[2017-08-18 07:42] LABS: UR CREATININE CONCENTRATION 212.4 MG/DL
[2017-08-18 07:44] LABS: CK-MB 5.6 ng/mL (0.0-4.9)
[2017-08-18 12:31] LABS: BASE EXCESS 3.3 mEq/L (-3 to +3); BICARBONATE 27.8 mEq/L (22-26); CARBOXY HGB 1.5 % (0-5); COMMENTS - BLOOD GASES C+; DEVICE VENTILATOR; METHEMOGLOBIN 1.1 % (0-1.5); PCO2 41 mm Hg (35-45); PO2 306 mm Hg (80-100); SITE A LINE; pH 7.44 (7.35-7.45)
[2017-08-18 12:32] LABS: FI02 80 %; INSPIRATION TIME 0.7 seconds; MECHANICAL RATE 18 resp/min; MODE AC+; PEEP 10 CM/H20; TIDAL VOLUME 550 ML; TOTAL RESP RATE 18 resp/min
[2017-08-18 13:23] LABS: BASOPHIL (%) 0.1 % (0-1); EOSINOPHIL (%) 0 % (0-5); HEMATOCRIT 26.7 % (38.0-50.0); HEMOGLOBIN 8.7 G/DL (12.5-16.6); IMMATURE GRANULOCYTE (%) 0.7 % (0.0-0.7); LYMPHOCYTE COUNT 0.4 K/uL (1.0-2.8); MCH 28.9 PG (29.0-34.0); MCHC 32.6 G/DL (30.0-36.0); MCV 88.7 FL (86-99); MONOCYTE (%) 1.9 % (3-12); MONOCYTE COUNT 0.2 K/uL (0-0.8); NEUTROPHIL (%) 93.3 % (45-76); NEUTROPHIL COUNT 8.4 K/uL (1.8-6.4); NRBC (%) 0.7 /100 WBC (0-0); PLATELET COUNT 219 K/uL (156-360); RBC DIS.WIDTH-CV 17.3 % (11.8-14.6); RBC DIS.WIDTH-SD 55.1 % (39-53); RED BLOOD COUNT 3.01 M/uL (4.00-5.50)
[2017-08-18 13:29] LABS: INTER. NORMALIZED RATIO 2.1
[2017-08-18 13:32] LABS: PTT 33.8 SEC (25-37)
[2017-08-18 13:51] LABS: TROP-I INTERPRETATION NEGATIVE; TROPONIN-I 0.15 ng/mL (0.0-0.30)
[2017-08-18 14:16] LABS: BASOPHIL (%) 0 % (0-1); EOSINOPHIL (%) 0 % (0-5); HEMATOCRIT 26.8 % (38.0-50.0); HEMOGLOBIN 8.7 G/DL (12.5-16.6); IMMATURE GRANULOCYTE (%) 0.6 % (0.0-0.7); LYMPHOCYTE (%) 3.9 % (15-42); LYMPHOCYTE COUNT 0.4 K/uL (1.0-2.8); MCH 28.5 PG (29.0-34.0); MCHC 32.5 G/DL (30.0-36.0); MCV 87.9 FL (86-99); MONOCYTE (%) 1.6 % (3-12); MONOCYTE COUNT 0.1 K/uL (0-0.8); NEUTROPHIL (%) 93.9 % (45-76); NEUTROPHIL COUNT 8.5 K/uL (1.8-6.4); NRBC (%) 0.7 /100 WBC (0-0); PLATELET COUNT 234 K/uL (156-360); RBC DIS.WIDTH-CV 17.2 % (11.8-14.6); RBC DIS.WIDTH-SD 54.4 % (39-53); RED BLOOD COUNT 3.05 M/uL (4.00-5.50)
[2017-08-18 14:22] LABS: INTER. NORMALIZED RATIO 2.2
[2017-08-18 14:25] LABS: PTT 34.5 SEC (25-37)
[2017-08-18 14:35] LABS: TROP-I INTERPRETATION NEGATIVE; TROPONIN-I 0.16 ng/mL (0.0-0.30)
[2017-08-18 14:42] LABS: ALBUMIN 2.9 G/DL (3.2-4.8); CHLORIDE 94 MEQ/L (99-109); CREATINE KINASE 899 IU/L (1-294); CREATININE 3.6 MG/DL (0.6-1.3); GFR ESTIMATE (CALCULATED) 23 mL/min/ (58.99-99999); GLUCOSE 190 mg/dL (70-99); MAGNESIUM 1.9 mg/dl (1.3-2.7); PHOSPHORUS 5.7 mg/dL (2.5-4.9); POTASSIUM 3.7 MEQ/L (3.7-5.4); SODIUM 134 MEQ/L (136-147); TOTAL CK 899 IU/L (1-294); UREA NITROGEN (BUN) 48 mg/dL (9-23)
[2017-08-18 14:43] LABS: CK-MB 6.2 ng/mL (0.0-4.9); CKMB RELATIVE INDEX 0.7 (0.0-3.9)
[2017-08-18 14:44] LABS: CREATINE KINASE 885 IU/L (1-294); TOTAL CK 885 IU/L (1-294)
[2017-08-18 14:45] LABS: ALBUMIN 2.9 G/DL (3.2-4.8); CHLORIDE 94 MEQ/L (99-109); CREATININE 3.5 MG/DL (0.6-1.3); GFR ESTIMATE (CALCULATED) 24 mL/min/ (58.99-99999); GLUCOSE 195 mg/dL (70-99); MAGNESIUM 1.9 mg/dl (1.3-2.7); PHOSPHORUS 5.7 mg/dL (2.5-4.9); POTASSIUM 3.7 MEQ/L (3.7-5.4); SODIUM 135 MEQ/L (136-147); UREA NITROGEN (BUN) 48 mg/dL (9-23)
[2017-08-18 17:59] LABS: CKMB RELATIVE INDEX 0.7 (0.0-3.9)
[2017-08-18 18:04] LABS: CK-MB 6.1 ng/mL (0.0-4.9)
[2017-08-18 18:05] LABS: BASE EXCESS 3.3 mEq/L (-3 to +3); BICARBONATE 27.8 mEq/L (22-26); CARBOXY HGB 1.5 % (0-5); METHEMOGLOBIN 1.6 % (0-1.5); PCO2 41 mm Hg (35-45); PO2 134 mm Hg (80-100); pH 7.44 (7.35-7.45)
[2017-08-18 18:06] LABS: COMMENTS - BLOOD GASES C+; DEVICE VENTILATOR; FI02 50 %; INSPIRATION TIME 0.7 seconds; MECHANICAL RATE 18 resp/min; MODE AC+; PEEP 10 CM/H20; SITE A LINE; TIDAL VOLUME 550 ML; TOTAL RESP RATE 18 resp/min
[2017-08-18 23:41] LABS: BASOPHIL (%) 0 % (0-1); EOSINOPHIL (%) 0 % (0-5); HEMATOCRIT 27.2 % (38.0-50.0); IMMATURE GRANULOCYTE (%) 0.6 % (0.0-0.7); LYMPHOCYTE (%) 3.1 % (15-42); LYMPHOCYTE COUNT 0.3 K/uL (1.0-2.8); MCH 28.8 PG (29.0-34.0); MCHC 33.1 G/DL (30.0-36.0); MCV 87.2 FL (86-99); MONOCYTE (%) 1.9 % (3-12); MONOCYTE COUNT 0.2 K/uL (0-0.8); NEUTROPHIL (%) 94.4 % (45-76); NEUTROPHIL COUNT 7.8 K/uL (1.8-6.4); NRBC (%) 0.7 /100 WBC (0-0); PLATELET COUNT 219 K/uL (156-360); RBC DIS.WIDTH-CV 17.2 % (11.8-14.6); RBC DIS.WIDTH-SD 53.4 % (39-53); RED BLOOD COUNT 3.12 M/uL (4.00-5.50); WHITE BLOOD COUNT 8.3 K/uL (4.1-10.2)
[2017-08-18 23:51] LABS: ALBUMIN 2.5 g/dL (3.2-4.8)
[2017-08-18 23:52] LABS: CHLORIDE 96 mEq/L (99-109); POTASSIUM 3.5 mEq/L (3.7-5.4); SODIUM 137 mEq/L (136-147)
[2017-08-18 23:53] LABS: MAGNESIUM 1.6 mg/dL (1.3-2.7)
[2017-08-18 23:54] LABS: GLUCOSE 201 mg/dL (70-99)
[2017-08-18 23:57] LABS: PHOSPHORUS 5.3 mg/dL (2.5-4.9)
[2017-08-18 23:57] LABS: BICARBONATE 29.1 mEq/L (22-26); CARBOXY HGB 1.6 % (0-5); METHEMOGLOBIN 1.1 % (0-1.5); PCO2 40 mm Hg (35-45); PO2 144 mm Hg (80-100); pH 7.47 (7.35-7.45)
[2017-08-18 23:58] LABS: GFR ESTIMATE (CALCULATED) 30 mL/min/ (58.99-99999)
[2017-08-18 23:58] LABS: COMMENTS - BLOOD GASES C+; DEVICE VENT; SITE A-LINE
[2017-08-18 23:59] LABS: FI02 50 %; INSPIRATION TIME 0.7 seconds; MECHANICAL RATE 18 resp/min; MODE ACVC+; PEEP 10 CM/H20; TIDAL VOLUME 550 ML; TOTAL RESP RATE 18 resp/min
[2017-08-18 23:59] LABS: UREA NITROGEN (BUN) 43 mg/dL (9-23)
[2017-08-19] VITALS (24 sets, daily range): BP systolic 88–143; BP diastolic 55–109
[2017-08-19 00:08] LABS: CREATININE 2.9 mg/dL (0.6-1.3)
[2017-08-19 01:05] LABS: BASOPHIL (%) 0 % (0-1); EOSINOPHIL (%) 0 % (0-5); HEMATOCRIT 27.5 % (38.0-50.0); HEMOGLOBIN 9.2 G/DL (12.5-16.6); IMMATURE GRANULOCYTE (%) 0.4 % (0.0-0.7); LYMPHOCYTE (%) 2.7 % (15-42); LYMPHOCYTE COUNT 0.2 K/uL (1.0-2.8); MCH 29.1 PG (29.0-34.0); MCHC 33.5 G/DL (30.0-36.0); MONOCYTE (%) 1.8 % (3-12); MONOCYTE COUNT 0.2 K/uL (0-0.8); NEUTROPHIL (%) 95.1 % (45-76); NEUTROPHIL COUNT 8.1 K/uL (1.8-6.4); NRBC (%) 0.6 /100 WBC (0-0); PLATELET COUNT 230 K/uL (156-360); RBC DIS.WIDTH-CV 17.1 % (11.8-14.6); RBC DIS.WIDTH-SD 53.9 % (39-53); RED BLOOD COUNT 3.16 M/uL (4.00-5.50); WHITE BLOOD COUNT 8.5 K/uL (4.1-10.2)
[2017-08-19 01:11] LABS: INTER. NORMALIZED RATIO 1.7
[2017-08-19 01:14] LABS: PTT 31.6 SEC (25-37)
[2017-08-19 01:16] LABS: CHLORIDE 96 mEq/L (99-109); POTASSIUM 3.5 mEq/L (3.7-5.4); SODIUM 134 mEq/L (136-147)
[2017-08-19 01:17] LABS: MAGNESIUM 1.7 mg/dL (1.3-2.7)
[2017-08-19 01:18] LABS: GLUCOSE 201 mg/dL (70-99)
[2017-08-19 01:22] LABS: CREATININE 2.7 mg/dL (0.6-1.3); GFR ESTIMATE (CALCULATED) 33 mL/min/ (58.99-99999); PHOSPHORUS 4.6 mg/dL (2.5-4.9)
[2017-08-19 01:23] LABS: UREA NITROGEN (BUN) 41 mg/dL (9-23)
[2017-08-19 01:25] LABS: CREATINE KINASE 952 IU/L (1-294); TOTAL CK 952 IU/L (1-294)
[2017-08-19 01:26] LABS: TROP-I INTERPRETATION NEGATIVE; TROPONIN-I 0.07 ng/mL (0.0-0.30)
[2017-08-19 01:30] LABS: CK-MB 5.4 ng/mL (0.0-4.9); CKMB RELATIVE INDEX 0.6 (0.0-3.9)
[2017-08-19 04:46] LABS: BASOPHIL (%) 0.1 % (0-1); EOSINOPHIL (%) 0 % (0-5); HEMATOCRIT 28.7 % (38.0-50.0); HEMOGLOBIN 9.6 G/DL (12.5-16.6); IMMATURE GRANULOCYTE (%) 0.5 % (0.0-0.7); LYMPHOCYTE (%) 2.9 % (15-42); LYMPHOCYTE COUNT 0.3 K/uL (1.0-2.8); MCH 29.1 PG (29.0-34.0); MCHC 33.4 G/DL (30.0-36.0); MONOCYTE (%) 1.9 % (3-12); MONOCYTE COUNT 0.2 K/uL (0-0.8); NEUTROPHIL (%) 94.6 % (45-76); NEUTROPHIL COUNT 8.7 K/uL (1.8-6.4); NRBC (%) 0.7 /100 WBC (0-0); PLATELET COUNT 232 K/uL (156-360); RBC DIS.WIDTH-CV 17.1 % (11.8-14.6); WHITE BLOOD COUNT 9.2 K/uL (4.1-10.2)
[2017-08-19 05:01] LABS: ALBUMIN 2.5 g/dL (3.2-4.8); CHLORIDE 97 mEq/L (99-109); POTASSIUM 3.4 mEq/L (3.7-5.4); SODIUM 137 mEq/L (136-147)
[2017-08-19 05:02] LABS: ALBUMIN 2.4 g/dL (3.2-4.8); MAGNESIUM 1.9 mg/dL (1.3-2.7)
[2017-08-19 05:03] LABS: CHLORIDE 97 mEq/L (99-109); GLUCOSE 191 mg/dL (70-99); POTASSIUM 3.4 mEq/L (3.7-5.4); SODIUM 137 mEq/L (136-147)
[2017-08-19 05:05] LABS: GLUCOSE 190 mg/dL (70-99); TOTAL PROTEIN 5.7 g/dL (6.4-8.3)
[2017-08-19 05:06] LABS: PHOSPHORUS 4.7 mg/dL (2.5-4.9)
[2017-08-19 05:07] LABS: CREATININE 2.6 mg/dL (0.6-1.3); GFR ESTIMATE (CALCULATED) 34 mL/min/ (58.99-99999); PHOSPHORUS 4.8 mg/dL (2.5-4.9); TOTAL BILIRUBIN 1.5 mg/dL (0.0-1.0)
[2017-08-19 05:08] LABS: ALKALINE PHOSPHATASE 75 IU/L (3-129); CREATINE KINASE 907 IU/L (1-294); TOTAL CK 907 IU/L (1-294); UREA NITROGEN (BUN) 38 mg/dL (9-23)
[2017-08-19 05:08] LABS: TROP-I INTERPRETATION NEGATIVE; TROPONIN-I 0.06 ng/mL (0.0-0.30)
[2017-08-19 05:09] LABS: CREATININE 2.6 mg/dL (0.6-1.3); GFR ESTIMATE (CALCULATED) 34 mL/min/ (58.99-99999)
[2017-08-19 05:10] LABS: AST (GOT) 746 IU/L (2-34); UREA NITROGEN (BUN) 39 mg/dL (9-23)
[2017-08-19 05:12] LABS: ALT (GPT) 952 IU/L (3-49)
[2017-08-19 05:39] LABS: BASE EXCESS 2.6 mEq/L (-3 to +3); BICARBONATE 27.2 mEq/L (22-26); CARBOXY HGB 1.6 % (0-5); METHEMOGLOBIN 1.2 % (0-1.5); PCO2 41 mm Hg (35-45); PO2 125 mm Hg (80-100); SITE A-LINE; pH 7.43 (7.35-7.45)
[2017-08-19 05:40] LABS: COMMENTS - BLOOD GASES C+; DEVICE VENT; FI02 50 %; INSPIRATION TIME 0.7 seconds; MECHANICAL RATE 18 resp/min; MODE ACVC+; PEEP 10 CM/H20; TIDAL VOLUME 550 ML; TOTAL RESP RATE 18 resp/min
[2017-08-19 05:41] LABS: CK-MB 5.1 ng/mL (0.0-4.9); CKMB RELATIVE INDEX 0.6 (0.0-3.9)
[2017-08-19 06:55] LABS: INTER. NORMALIZED RATIO 1.6
[2017-08-19 06:58] LABS: PTT 30.8 SEC (25-37)
[2017-08-19 08:51] LABS: APPEARANCE CLOUDY ((CLEAR)); BILIRUBIN NEGATIVE; BLOOD LARGE; COLOR AMBER ((YELLOW)); GLUCOSE (STRIP) 50; KETONES NEGATIVE; LEUKOCYTES NEGATIVE; NITRITE NEGATIVE; PROTEIN (STRIP) 100; SPECIFIC GRAVITY 1.018 (1.000-1.030)
[2017-08-19 09:14] LABS: BACTERIA NONE SEEN /HPF; EPITHELIAL CELLS NONE SEEN /HPF; HYALINE CASTS 20-30 /LPF; MUCUS 3+ /LPF; RED BLOOD CELLS TNTC /HPF (0-5); WHITE BLOOD CELLS 0-5 /HPF (0-5)
[2017-08-19 11:41] LABS: BASE EXCESS 5.8 mEq/L (-3 to +3); BICARBONATE 29.8 mEq/L (22-26); CARBOXY HGB 1.9 % (0-5); METHEMOGLOBIN 1.2 % (0-1.5); PCO2 40 mm Hg (35-45); PO2 154 mm Hg (80-100); pH 7.48 (7.35-7.45)
[2017-08-19 11:42] LABS: COMMENTS - BLOOD GASES C+; DEVICE VENT; FI02 40 %; INSPIRATION TIME 0.7 seconds; MECHANICAL RATE 18 resp/min; MODE ACVC+; PEEP 10 CM/H20; SITE RR ALINE; TIDAL VOLUME 550 ML; TOTAL RESP RATE 18 resp/min
[2017-08-19 12:05] LABS: BASOPHIL (%) 0 % (0-1); EOSINOPHIL (%) 0 % (0-5); HEMATOCRIT 27.1 % (38.0-50.0); IMMATURE GRANULOCYTE (%) 0.5 % (0.0-0.7); LYMPHOCYTE (%) 3.3 % (15-42); LYMPHOCYTE COUNT 0.3 K/uL (1.0-2.8); MCH 29.1 PG (29.0-34.0); MCHC 33.2 G/DL (30.0-36.0); MCV 87.7 FL (86-99); MONOCYTE (%) 3.4 % (3-12); MONOCYTE COUNT 0.3 K/uL (0-0.8); NEUTROPHIL (%) 92.8 % (45-76); NEUTROPHIL COUNT 7.8 K/uL (1.8-6.4); NRBC (%) 0.6 /100 WBC (0-0); PLATELET COUNT 237 K/uL (156-360); RBC DIS.WIDTH-CV 16.9 % (11.8-14.6); RBC DIS.WIDTH-SD 53.9 % (39-53); RED BLOOD COUNT 3.09 M/uL (4.00-5.50); WHITE BLOOD COUNT 8.5 K/uL (4.1-10.2)
[2017-08-19 12:15] LABS: INTER. NORMALIZED RATIO 1.6
[2017-08-19 12:24] LABS: TROP-I INTERPRETATION NEGATIVE; TROPONIN-I 0.04 ng/mL (0.0-0.30)
[2017-08-19 13:15] LABS: ALBUMIN 2.4 G/DL (3.2-4.8); CHLORIDE 98 MEQ/L (99-109); CK-MB 5.1 ng/mL (0.0-4.9); CREATINE KINASE 631 IU/L (1-294); GFR ESTIMATE (CALCULATED) 46 mL/min/ (58.99-99999); GLUCOSE 176 mg/dL (70-99); PHOSPHORUS 4.5 mg/dL (2.5-4.9); POTASSIUM 3.4 MEQ/L (3.7-5.4); SODIUM 136 MEQ/L (136-147); UREA NITROGEN (BUN) 36 mg/dL (9-23)
[2017-08-19 13:16] LABS: CKMB RELATIVE INDEX 0.8 (0.0-3.9); TOTAL CK 631 IU/L (1-294)
[2017-08-19 18:09] LABS: BASOPHIL (%) 0 % (0-1); EOSINOPHIL (%) 0 % (0-5); HEMATOCRIT 27.9 % (38.0-50.0); HEMOGLOBIN 9.1 G/DL (12.5-16.6); IMMATURE GRANULOCYTE (%) 0.5 % (0.0-0.7); LYMPHOCYTE (%) 3.1 % (15-42); LYMPHOCYTE COUNT 0.3 K/uL (1.0-2.8); MCH 28.6 PG (29.0-34.0); MCHC 32.6 G/DL (30.0-36.0); MCV 87.7 FL (86-99); MONOCYTE (%) 3.6 % (3-12); MONOCYTE COUNT 0.3 K/uL (0-0.8); NEUTROPHIL (%) 92.8 % (45-76); NEUTROPHIL COUNT 7.4 K/uL (1.8-6.4); NRBC (%) 1.3 /100 WBC (0-0); PLATELET COUNT 228 K/uL (156-360); RBC DIS.WIDTH-CV 16.7 % (11.8-14.6); RBC DIS.WIDTH-SD 53.3 % (39-53); RED BLOOD COUNT 3.18 M/uL (4.00-5.50)
[2017-08-19 18:31] LABS: INTER. NORMALIZED RATIO 1.4
[2017-08-19 18:34] LABS: BASE EXCESS 7.4 mEq/L (-3 to +3); BICARBONATE 31.2 mEq/L (22-26); CARBOXY HGB 1.6 % (0-5); COMMENTS - BLOOD GASES C+; DEVICE VENT; FI02 40 %; METHEMOGLOBIN 1.3 % (0-1.5); PCO2 40 mm Hg (35-45); PO2 142 mm Hg (80-100); SITE A LINE
[2017-08-19 18:34] LABS: PTT 29.3 SEC (25-37); TROP-I INTERPRETATION NEGATIVE; TROPONIN-I 0.03 ng/mL (0.0-0.30)
[2017-08-19 18:35] LABS: CK-MB 4.4 ng/mL (0.0-4.9)
[2017-08-19 18:35] LABS: MECHANICAL RATE 18 resp/min; MODE A/C; PEEP 10 CM/H20; TIDAL VOLUME 550 ML; TOTAL RESP RATE 19 resp/min
[2017-08-19 18:57] LABS: ALBUMIN 2.4 G/DL (3.2-4.8); CHLORIDE 99 MEQ/L (99-109); CKMB RELATIVE INDEX 0.8 (0.0-3.9); CREATINE KINASE 525 IU/L (1-294); CREATININE 1.9 MG/DL (0.6-1.3); GFR ESTIMATE (CALCULATED) 49 mL/min/ (58.99-99999); GLUCOSE 191 mg/dL (70-99); MAGNESIUM 1.9 mg/dl (1.3-2.7); PHOSPHORUS 4.3 mg/dL (2.5-4.9); SODIUM 136 MEQ/L (136-147); TOTAL CK 525 IU/L (1-294); UREA NITROGEN (BUN) 34 mg/dL (9-23)
[2017-08-20] VITALS (13 sets, daily range): BP systolic 95–167; BP diastolic 59–111
[2017-08-20 00:40] LABS: BASOPHIL (%) 0 % (0-1); EOSINOPHIL (%) 0 % (0-5); HEMATOCRIT 26.9 % (38.0-50.0); IMMATURE GRANULOCYTE (%) 0.4 % (0.0-0.7); LYMPHOCYTE (%) 4.2 % (15-42); LYMPHOCYTE COUNT 0.3 K/uL (1.0-2.8); MCH 29.4 PG (29.0-34.0); MCHC 33.5 G/DL (30.0-36.0); MCV 87.9 FL (86-99); MONOCYTE (%) 4.9 % (3-12); MONOCYTE COUNT 0.4 K/uL (0-0.8); NEUTROPHIL (%) 90.5 % (45-76); NEUTROPHIL COUNT 7.2 K/uL (1.8-6.4); NRBC (%) 1.5 /100 WBC (0-0); PLATELET COUNT 232 K/uL (156-360); RBC DIS.WIDTH-SD 53.4 % (39-53); RED BLOOD COUNT 3.06 M/uL (4.00-5.50); WHITE BLOOD COUNT 7.9 K/uL (4.1-10.2)
[2017-08-20 00:46] LABS: INTER. NORMALIZED RATIO 1.4
[2017-08-20 00:49] LABS: PTT 27.8 SEC (25-37)
[2017-08-20 00:53] LABS: ALBUMIN 2.3 g/dL (3.2-4.8)
[2017-08-20 00:54] LABS: CHLORIDE 100 mEq/L (99-109); MAGNESIUM 1.7 mg/dL (1.3-2.7); POTASSIUM 3.8 mEq/L (3.7-5.4); SODIUM 139 mEq/L (136-147)
[2017-08-20 00:56] LABS: GLUCOSE 184 mg/dL (70-99)
[2017-08-20 00:59] LABS: PHOSPHORUS 3.3 mg/dL (2.5-4.9)
[2017-08-20 01:00] LABS: GFR ESTIMATE (CALCULATED) 46 mL/min/ (58.99-99999)
[2017-08-20 01:01] LABS: UREA NITROGEN (BUN) 34 mg/dL (9-23)
[2017-08-20 01:02] LABS: CREATINE KINASE 572 IU/L (1-294); TOTAL CK 572 IU/L (1-294)
[2017-08-20 01:03] LABS: TROP-I INTERPRETATION NEGATIVE; TROPONIN-I 0.02 ng/mL (0.0-0.30)
[2017-08-20 01:09] LABS: CK-MB 2.8 ng/mL (0.0-4.9); CKMB RELATIVE INDEX 0.5 (0.0-3.9)
[2017-08-20 05:14] LABS: BASOPHIL (%) 0 % (0-1); EOSINOPHIL (%) 0 % (0-5); HEMOGLOBIN 8.8 G/DL (12.5-16.6); IMMATURE GRANULOCYTE (%) 0.3 % (0.0-0.7); LYMPHOCYTE (%) 4.1 % (15-42); LYMPHOCYTE COUNT 0.3 K/uL (1.0-2.8); MCH 28.8 PG (29.0-34.0); MCHC 32.6 G/DL (30.0-36.0); MCV 88.2 FL (86-99); MONOCYTE (%) 4.3 % (3-12); MONOCYTE COUNT 0.3 K/uL (0-0.8); NEUTROPHIL (%) 91.3 % (45-76); NEUTROPHIL COUNT 6.7 K/uL (1.8-6.4); NRBC (%) 1.6 /100 WBC (0-0); PLATELET COUNT 224 K/uL (156-360); RBC DIS.WIDTH-CV 16.7 % (11.8-14.6); RBC DIS.WIDTH-SD 53.1 % (39-53); RED BLOOD COUNT 3.06 M/uL (4.00-5.50); WHITE BLOOD COUNT 7.3 K/uL (4.1-10.2)
[2017-08-20 05:32] LABS: INTER. NORMALIZED RATIO 1.4
[2017-08-20 05:35] LABS: PTT 28.8 SEC (25-37)
[2017-08-20 05:36] LABS: TROP-I INTERPRETATION NEGATIVE; TROPONIN-I 0.04 ng/mL (0.0-0.30)
[2017-08-20 06:52] LABS: CK-MB 2.8 ng/mL (0.0-4.9)
[2017-08-20 07:06] LABS: ALBUMIN 2.5 G/DL (3.2-4.8); CHLORIDE 98 MEQ/L (99-109); CKMB RELATIVE INDEX 0.6 (0.0-3.9); CREATINE KINASE 456 IU/L (1-294); CREATININE 1.9 MG/DL (0.6-1.3); GFR ESTIMATE (CALCULATED) 49 mL/min/ (58.99-99999); GLUCOSE 185 mg/dL (70-99); PHOSPHORUS 3.6 mg/dL (2.5-4.9); POTASSIUM 3.8 MEQ/L (3.7-5.4); SODIUM 136 MEQ/L (136-147); TOTAL CK 456 IU/L (1-294); UREA NITROGEN (BUN) 33 mg/dL (9-23)
[2017-08-20 12:34] LABS: BASOPHIL (%) 0 % (0-1); EOSINOPHIL (%) 0 % (0-5); HEMATOCRIT 27.5 % (38.0-50.0); HEMOGLOBIN 8.9 G/DL (12.5-16.6); IMMATURE GRANULOCYTE (%) 0.3 % (0.0-0.7); LYMPHOCYTE (%) 4.8 % (15-42); LYMPHOCYTE COUNT 0.4 K/uL (1.0-2.8); MCH 28.7 PG (29.0-34.0); MCHC 32.4 G/DL (30.0-36.0); MCV 88.7 FL (86-99); MONOCYTE (%) 5.1 % (3-12); MONOCYTE COUNT 0.4 K/uL (0-0.8); NEUTROPHIL (%) 89.8 % (45-76); NEUTROPHIL COUNT 6.9 K/uL (1.8-6.4); NRBC (%) 1.7 /100 WBC (0-0); PLATELET COUNT 244 K/uL (156-360); RBC DIS.WIDTH-CV 16.8 % (11.8-14.6); RBC DIS.WIDTH-SD 53.7 % (39-53); WHITE BLOOD COUNT 7.7 K/uL (4.1-10.2)
[2017-08-20 12:55] LABS: TROP-I INTERPRETATION NEGATIVE; TROPONIN-I 0.03 ng/mL (0.0-0.30)
[2017-08-20 13:10] LABS: INTER. NORMALIZED RATIO 1.3
[2017-08-20 13:12] LABS: PTT 27.5 SEC (25-37)
[2017-08-20 13:18] LABS: CK-MB 2.8 ng/mL (0.0-4.9)
[2017-08-20 13:23] LABS: ALBUMIN 2.5 G/DL (3.2-4.8); CHLORIDE 100 MEQ/L (99-109); CKMB RELATIVE INDEX 0.6 (0.0-3.9); CREATINE KINASE 480 IU/L (1-294); CREATININE 1.7 MG/DL (0.6-1.3); GFR ESTIMATE (CALCULATED) 56 mL/min/ (58.99-99999); GLUCOSE 172 mg/dL (70-99); MAGNESIUM 2.1 mg/dl (1.3-2.7); PHOSPHORUS 3.3 mg/dL (2.5-4.9); SODIUM 138 MEQ/L (136-147); TOTAL CK 480 IU/L (1-294); UREA NITROGEN (BUN) 32 mg/dL (9-23); VANCOMYCIN, TROUGH 13.7 MCG/ML (10-20)
[2017-08-20 18:22] LABS: BASOPHIL (%) 0.1 % (0-1); EOSINOPHIL (%) 0 % (0-5); HEMATOCRIT 28.8 % (38.0-50.0); HEMOGLOBIN 9.3 G/DL (12.5-16.6); IMMATURE GRANULOCYTE (%) 0.5 % (0.0-0.7); LYMPHOCYTE (%) 5.3 % (15-42); LYMPHOCYTE COUNT 0.4 K/uL (1.0-2.8); MCH 28.6 PG (29.0-34.0); MCHC 32.3 G/DL (30.0-36.0); MCV 88.6 FL (86-99); MONOCYTE (%) 6.7 % (3-12); MONOCYTE COUNT 0.5 K/uL (0-0.8); NEUTROPHIL (%) 87.4 % (45-76); NEUTROPHIL COUNT 7.1 K/uL (1.8-6.4); PLATELET COUNT 254 K/uL (156-360); RBC DIS.WIDTH-CV 16.7 % (11.8-14.6); RBC DIS.WIDTH-SD 54.2 % (39-53); RED BLOOD COUNT 3.25 M/uL (4.00-5.50); WHITE BLOOD COUNT 8.1 K/uL (4.1-10.2)
[2017-08-20 18:28] LABS: INTER. NORMALIZED RATIO 1.3
[2017-08-20 18:31] LABS: PTT 27.8 SEC (25-37)
[2017-08-20 18:41] LABS: TROP-I INTERPRETATION NEGATIVE; TROPONIN-I 0.03 ng/mL (0.0-0.30)
[2017-08-20 18:48] LABS: ALBUMIN 2.8 G/DL (3.2-4.8); CHLORIDE 100 MEQ/L (99-109); CREATINE KINASE 462 IU/L (1-294); CREATININE 1.7 MG/DL (0.6-1.3); GFR ESTIMATE (CALCULATED) 56 mL/min/ (58.99-99999); GLUCOSE 175 mg/dL (70-99); MAGNESIUM 2.1 mg/dl (1.3-2.7); PHOSPHORUS 3.3 mg/dL (2.5-4.9); POTASSIUM 3.7 MEQ/L (3.7-5.4); SODIUM 138 MEQ/L (136-147); TOTAL CK 462 IU/L (1-294); UREA NITROGEN (BUN) 31 mg/dL (9-23)
[2017-08-20 19:04] LABS: CK-MB 2.8 ng/mL (0.0-4.9); CKMB RELATIVE INDEX 0.6 (0.0-3.9)
[2017-08-21] VITALS (18 sets, daily range): BP systolic 137–196; BP diastolic 88–123
[2017-08-21 05:01] LABS: INTER. NORMALIZED RATIO 1.3
[2017-08-21 05:02] LABS: ALBUMIN 2.6 g/dL (3.2-4.8); CHLORIDE 103 mEq/L (99-109); POTASSIUM 3.6 mEq/L (3.7-5.4); SODIUM 140 mEq/L (136-147)
[2017-08-21 05:04] LABS: GLUCOSE 177 mg/dL (70-99); PTT 27.2 SEC (25-37)
[2017-08-21 05:08] LABS: CREATININE 1.7 mg/dL (0.6-1.3); GFR ESTIMATE (CALCULATED) 56 mL/min/ (58.99-99999); PHOSPHORUS 2.9 mg/dL (2.5-4.9)
[2017-08-21 05:09] LABS: UREA NITROGEN (BUN) 32 mg/dL (9-23)
[2017-08-22] VITALS (16 sets, daily range): BP systolic 139–211; BP diastolic 90–129
[2017-08-22 08:17] LABS: BASOPHIL (%) 0.1 % (0-1); EOSINOPHIL (%) 0 % (0-5); HEMATOCRIT 29.3 % (38.0-50.0); HEMOGLOBIN 9.5 G/DL (12.5-16.6); IMMATURE GRANULOCYTE (%) 0.6 % (0.0-0.7); LYMPHOCYTE COUNT 0.7 K/uL (1.0-2.8); MCH 29.4 PG (29.0-34.0); MCHC 32.4 G/DL (30.0-36.0); MCV 90.7 FL (86-99); MONOCYTE (%) 7.4 % (3-12); MONOCYTE COUNT 0.6 K/uL (0-0.8); NEUTROPHIL (%) 83.9 % (45-76); NEUTROPHIL COUNT 6.9 K/uL (1.8-6.4); NRBC (%) 3.5 /100 WBC (0-0); PLATELET COUNT 271 K/uL (156-360); RBC DIS.WIDTH-CV 17.2 % (11.8-14.6); RBC DIS.WIDTH-SD 55.9 % (39-53); RED BLOOD COUNT 3.23 M/uL (4.00-5.50); WHITE BLOOD COUNT 8.2 K/uL (4.1-10.2)
[2017-08-22 08:49] LABS: CHLORIDE 106 MEQ/L (99-109); CREATININE 1.6 MG/DL (0.6-1.3); GFR ESTIMATE (CALCULATED) > 59 mL/min/ (58.99-99999); GLUCOSE 161 mg/dL (70-99); POTASSIUM 3.5 MEQ/L (3.7-5.4); SODIUM 145 MEQ/L (136-147); UREA NITROGEN (BUN) 34 mg/dL (9-23)
[2017-08-22 13:54] LABS: CHLORIDE 106 MEQ/L (99-109); CREATININE 1.6 MG/DL (0.6-1.3); GFR ESTIMATE (CALCULATED) > 59 mL/min/ (58.99-99999); GLUCOSE 219 mg/dL (70-99); POTASSIUM 3.7 MEQ/L (3.7-5.4); SODIUM 143 MEQ/L (136-147); UREA NITROGEN (BUN) 35 mg/dL (9-23)
[2017-08-23] VITALS (9 sets, daily range): BP systolic 128–173; BP diastolic 73–116
[2017-08-23 05:59] LABS: BASOPHIL (%) 0 % (0-1); EOSINOPHIL (%) 0 % (0-5); HEMATOCRIT 29.6 % (38.0-50.0); HEMOGLOBIN 9.2 G/DL (12.5-16.6); IMMATURE GRANULOCYTE (%) 0.7 % (0.0-0.7); LYMPHOCYTE COUNT 0.9 K/uL (1.0-2.8); MCHC 31.1 G/DL (30.0-36.0); MCV 90.2 FL (86-99); MONOCYTE (%) 8.5 % (3-12); MONOCYTE COUNT 0.6 K/uL (0-0.8); NEUTROPHIL (%) 77.8 % (45-76); NEUTROPHIL COUNT 5.3 K/uL (1.8-6.4); NRBC (%) 4.2 /100 WBC (0-0); PLATELET COUNT 299 K/uL (156-360); RBC DIS.WIDTH-CV 17.1 % (11.8-14.6); RBC DIS.WIDTH-SD 55.2 % (39-53); RED BLOOD COUNT 3.28 M/uL (4.00-5.50); WHITE BLOOD COUNT 6.8 K/uL (4.1-10.2)
[2017-08-23 06:32] LABS: CHLORIDE 106 MEQ/L (99-109); CREATININE 1.5 MG/DL (0.6-1.3); GFR ESTIMATE (CALCULATED) > 59 mL/min/ (58.99-99999); GLUCOSE 149 mg/dL (70-99); POTASSIUM 3.4 MEQ/L (3.7-5.4); SODIUM 142 MEQ/L (136-147); UREA NITROGEN (BUN) 30 mg/dL (9-23)
[2017-08-24] VITALS (7 sets, daily range): BP systolic 144–181; BP diastolic 88–111
[2017-08-24 06:39] LABS: CHLORIDE 103 MEQ/L (99-109); CREATININE 1.5 MG/DL (0.6-1.3); GFR ESTIMATE (CALCULATED) > 59 mL/min/ (58.99-99999); POTASSIUM 3.9 MEQ/L (3.7-5.4); SODIUM 139 MEQ/L (136-147); UREA NITROGEN (BUN) 30 mg/dL (9-23)
[2017-08-24 06:46] LABS: GLUCOSE 250 mg/dL (70-99)
[2017-08-25] VITALS (7 sets, daily range): BP systolic 132–185; BP diastolic 80–101
[2017-08-25 04:53] LABS: BASOPHIL (%) 0.1 % (0-1); EOSINOPHIL (%) 0 % (0-5); HEMATOCRIT 31.1 % (38.0-50.0); HEMOGLOBIN 10.1 G/DL (12.5-16.6); IMMATURE GRANULOCYTE (%) 1.2 % (0.0-0.7); LYMPHOCYTE (%) 13.2 % (15-42); LYMPHOCYTE COUNT 0.9 K/uL (1.0-2.8); MCH 28.8 PG (29.0-34.0); MCHC 32.5 G/DL (30.0-36.0); MCV 88.6 FL (86-99); MONOCYTE (%) 13.5 % (3-12); MONOCYTE COUNT 0.9 K/uL (0-0.8); NEUTROPHIL COUNT 4.8 K/uL (1.8-6.4); NRBC (%) 5.3 /100 WBC (0-0); PLATELET COUNT 342 K/uL (156-360); RBC DIS.WIDTH-SD 54.5 % (39-53); RED BLOOD COUNT 3.51 M/uL (4.00-5.50); WHITE BLOOD COUNT 6.7 K/uL (4.1-10.2)
[2017-08-25 05:04] LABS: CHLORIDE 103 mEq/L (99-109); POTASSIUM 3.5 mEq/L (3.7-5.4); SODIUM 138 mEq/L (136-147)
[2017-08-25 05:05] LABS: GLUCOSE 226 mg/dL (70-99)
[2017-08-25 05:09] LABS: CREATININE 1.4 mg/dL (0.6-1.3); GFR ESTIMATE (CALCULATED) > 59 mL/min/ (58.99-99999)
[2017-08-25 05:10] LABS: UREA NITROGEN (BUN) 29 mg/dL (9-23)
[2017-08-26 04:53] VITALS: BP 176/114
[2017-08-26 05:58] LABS: CHLORIDE 101 MEQ/L (99-109); CREATININE 1.3 MG/DL (0.6-1.3); GFR ESTIMATE (CALCULATED) > 59 mL/min/ (58.99-99999); GLUCOSE 158 mg/dL (70-99); POTASSIUM 3.7 MEQ/L (3.7-5.4); SODIUM 142 MEQ/L (136-147); UREA NITROGEN (BUN) 26 mg/dL (9-23)
[2017-08-26 06:52] VITALS: BP 133/93
[2017-08-26 11:32] VITALS: BP 109/74
[2017-08-26 15:24] VITALS: BP 122/70
[2017-08-26 20:24] VITALS: BP 128/82
[2017-08-27] VITALS (8 sets, daily range): BP systolic 110–152; BP diastolic 69–108
[2017-08-27 05:49] LABS: CHLORIDE 98 MEQ/L (99-109); CREATININE 1.4 MG/DL (0.6-1.3); GFR ESTIMATE (CALCULATED) > 59 mL/min/ (58.99-99999); GLUCOSE 154 mg/dL (70-99); POTASSIUM 3.7 MEQ/L (3.7-5.4); SODIUM 140 MEQ/L (136-147); UREA NITROGEN (BUN) 28 mg/dL (9-23)
[2017-08-28 00:57] VITALS: BP 167/94
[2017-08-28 05:01] VITALS: BP 166/98
[2017-08-28 06:11] LABS: CHLORIDE 96 MEQ/L (99-109); CREATININE 1.3 MG/DL (0.6-1.3); GFR ESTIMATE (CALCULATED) > 59 mL/min/ (58.99-99999); GLUCOSE 182 mg/dL (70-99); POTASSIUM 3.3 MEQ/L (3.7-5.4); SODIUM 137 MEQ/L (136-147); UREA NITROGEN (BUN) 31 mg/dL (9-23)
[2017-08-28 08:45] VITALS: BP 142/94
[2017-08-28 15:33] VITALS: BP 148/86
[2017-08-28 19:53] VITALS: BP 112/59
[2017-08-29 00:15] VITALS: BP 142/94
[2017-08-29 03:51] VITALS: BP 155/95
[2017-08-29 08:15] LABS: CHLORIDE 100 MEQ/L (99-109); CREATININE 1.2 MG/DL (0.6-1.3); GFR ESTIMATE (CALCULATED) > 59 mL/min/ (58.99-99999); GLUCOSE 155 mg/dL (70-99); SODIUM 140 MEQ/L (136-147); UREA NITROGEN (BUN) 33 mg/dL (9-23)
[2017-08-29 08:41] VITALS: BP 157/100
[2017-08-29 12:02] VITALS: BP 144/99
[2017-08-29] MEDS ORDERED: GABAPENTIN100 MG PO (12:53)
[2017-08-29] MEDS ORDERED: PREDNISONE10 MG PO (12:53)
[2017-08-29] MEDS ORDERED: SPIRONOLACTONE25 MG PO (12:53)
[2017-08-29] MEDS ORDERED: CLONIDINE HCL0.1 MG PO (12:53)
[2017-08-29] MEDS ORDERED: METOPROLOL SUC100 MG PO (12:53)
[2017-08-29] MEDS ORDERED: MONTELUKAST SOD10 MG PO (12:53)
[2017-08-29] MEDS ORDERED: SUCRALFATE1 GM PO (12:53)
== END 2017-08-29 15:13 | disposition home health service (06) | DRG 207 ==
LOC: EME → EDBD 00:49 → 4EAST 02:36 → 4WEST 02:36 → EDOF 02:36 → ENRESERV 02:37 → 4WEST 04:18 → ENRESERV 08-23 02:31 → 4EAST 08-23 04:20 → ENRESERV 08-26 17:13 → 3EAST 08-27 13:57
PROVIDERS: Emergency Medicine; Family Medicine; Internal Medicine; Internal Medicine Critical Care Medicine; Internal Medicine Nephrology; Physician Assistant Medical
DX: J96.01 Acute respiratory failure with hypoxia (principal); J18.9 Pneumonia, unspecified organism; J44.0 Chronic obstructive pulmonary disease with (acute) lower respiratory infection; J44.1 Chronic obstructive pulmonary disease with (acute) exacerbation; J45.901 Unspecified asthma with (acute) exacerbation; I13.0 Hypertensive heart and chronic kidney disease with heart failure and stage 1 through stage 4 chronic kidney disease, or unspecified chronic kidney disease; I50.33 Acute on chronic diastolic (congestive) heart failure; E11.22 Type 2 diabetes mellitus with diabetic chronic kidney disease; N18.3 Chronic kidney disease, stage 3 (moderate); N17.0 Acute kidney failure with tubular necrosis; I46.9 Cardiac arrest, cause unspecified; G93.41 Metabolic encephalopathy; G93.1 Anoxic brain damage, not elsewhere classified; K72.00 Acute and subacute hepatic failure without coma; M62.82 Rhabdomyolysis; I07.1 Rheumatic tricuspid insufficiency; I42.1 Obstructive hypertrophic cardiomyopathy; I48.0 Paroxysmal atrial fibrillation; I48.2 Chronic atrial fibrillation; I48.92 Unspecified atrial flutter; Z91.19 Patient's noncompliance with other medical treatment and regimen; E27.40 Unspecified adrenocortical insufficiency; E66.2 Morbid (severe) obesity with alveolar hypoventilation; I27.20 Pulmonary hypertension, unspecified; E83.51 Hypocalcemia; E87.2 Acidosis; E87.6 Hypokalemia; F12.90 Cannabis use, unspecified, uncomplicated; G40.909 Epilepsy, unspecified, not intractable, without status epilepticus; K21.9 Gastro-esophageal reflux disease without esophagitis; E78.5 Hyperlipidemia, unspecified; F32.9 Major depressive disorder, single episode, unspecified; F41.9 Anxiety disorder, unspecified; M25.569 Pain in unspecified knee; R55 Syncope and collapse; Z79.01 Long term (current) use of anticoagulants; Z86.73 Personal history of transient ischemic attack (TIA), and cerebral infarction without residual deficits; Z87.01 Personal history of pneumonia (recurrent); Z87.891 Personal history of nicotine dependence
CPT/HCPCS: 36600; 36620; 71010; 71045; 76770; 80048; 80048 91; 80053; 80069; 80076; 80202; 81003; 82010; 82330; 82550; 82550 91; 82553; 82570; 82803; 82948; 83605; 83735; 83880; 84100; 84300; 84484; 85025; 85025 91; 85027; 85610; 85730; 87040; 87070; 87106; 87205; 87641; 92526 GN; 92610 GN; 93005; 93306; 94002; 94003; 94640; 94640 76; 94660; 94760; 94799; 97530 GO; 97530 GP; 99202; 99281; 99285; C1751; C9113; J0360; J0610; J1165; J1720; J1815; J1940; J1956; J2060; J2250; J2543; J2704; J3010; J3370; J3475; J3480; J7030; J7040; J7050; J7512; S0028

== ENCOUNTER 2017-10-28 12:16 | Emergency (ER) | payer OTHER ==
[~2017-10-28] VITALS: Ht 185.4 cm; Wt 138.3 kg
[~2017-10-28 12:16] MED LIST changes: +GABAPENTIN100 MG PO; +METOPROLOL SUC100 MG PO; +MONTELUKAST SOD10 MG PO; +SPIRONOLACTONE25 MG PO; +SUCRALFATE1 GM PO
[2017-10-28 14:16] VITALS: BP 127/67
== END 2017-10-28 14:16 | disposition left against medical advice (07) ==
LOC: EME 12:16
DX: R53.1 Weakness (principal); I50.9 Heart failure, unspecified; I42.2 Other hypertrophic cardiomyopathy; E11.9 Type 2 diabetes mellitus without complications; J44.9 Chronic obstructive pulmonary disease, unspecified; G47.30 Sleep apnea, unspecified; K21.9 Gastro-esophageal reflux disease without esophagitis; Z86.73 Personal history of transient ischemic attack (TIA), and cerebral infarction without residual deficits; Z90.49 Acquired absence of other specified parts of digestive tract; Z88.1 Allergy status to other antibiotic agents; Z88.5 Allergy status to narcotic agent; Z88.6 Allergy status to analgesic agent
CPT/HCPCS: 80053; 81003; 82140; 84484; 85025; 93005; 99281; 99284

== ENCOUNTER 2017-12-29 22:39 | Emergency (ER) | payer OTHER ==
[~2017-12-29] VITALS: Ht 180.3 cm; Wt 134.5 kg
[2017-12-30] MEDS ORDERED: TRAMADOL HCL50 MG PO (00:34)
[2017-12-30 00:51] VITALS: BP 120/75
== END 2017-12-30 00:52 | disposition home or self-care (01) ==
LOC: EME 22:39
DX: S20.219A Contusion of unspecified front wall of thorax, initial encounter (principal); S93.401A Sprain of unspecified ligament of right ankle, initial encounter; S63.501A Unspecified sprain of right wrist, initial encounter; V18.4XXA Pedal cycle driver injured in noncollision transport accident in traffic accident, initial encounter; Y93.55 Activity, bike riding; Z88.5 Allergy status to narcotic agent; Z88.1 Allergy status to other antibiotic agents; Z88.6 Allergy status to analgesic agent; Z88.8 Allergy status to other drugs, medicaments and biological substances; Z91.09 Other allergy status, other than to drugs and biological substances
CPT/HCPCS: 71045; 73110; 73600; 99281; 99284

== ENCOUNTER 2018-01-09 14:17 | Observation (INO) | payer OTHER ==
[~2018-01-09] VITALS: Ht 180.3 cm; Wt 135.8 kg
[2018-01-09 15:23] LABS: BASOPHIL (%) 0.8 % (0-1); EOSINOPHIL (%) 3.4 % (0-5); EOSINOPHIL COUNT 0.2 K/uL (0-0.3); HEMOGLOBIN 13.1 G/DL (12.5-16.6); IMMATURE GRANULOCYTE (%) 0.2 % (0.0-0.7); LYMPHOCYTE (%) 24.5 % (15-42); LYMPHOCYTE COUNT 1.2 K/uL (1.0-2.8); MCH 28.5 PG (29.0-34.0); MCHC 32.8 G/DL (30.0-36.0); MCV 87.1 FL (86-99); MONOCYTE COUNT 0.4 K/uL (0-0.8); NEUTROPHIL (%) 63.1 % (45-76); NEUTROPHIL COUNT 3.2 K/uL (1.8-6.4); PLATELET COUNT 291 K/uL (156-360); RBC DIS.WIDTH-CV 15.9 % (11.8-14.6); RBC DIS.WIDTH-SD 49.6 % (39-53); RED BLOOD COUNT 4.59 M/uL (4.00-5.50)
[2018-01-09 15:30] LABS: ALBUMIN 3.8 g/dL (3.2-4.8)
[2018-01-09 15:31] LABS: CHLORIDE 104 mEq/L (99-109); POTASSIUM 3.4 mEq/L (3.7-5.4); SODIUM 140 mEq/L (136-147)
[2018-01-09 15:33] LABS: GLUCOSE 144 mg/dL (70-99); TOTAL PROTEIN 7.2 g/dL (6.4-8.3)
[2018-01-09 15:36] LABS: ALKALINE PHOSPHATASE 109 IU/L (3-129)
[2018-01-09 15:37] LABS: CREATININE 1.1 mg/dL (0.6-1.3); GFR ESTIMATE (CALCULATED) > 59 mL/min/ (58.99-99999)
[2018-01-09 15:38] LABS: AST (GOT) 20 IU/L (2-34); UREA NITROGEN (BUN) 10 mg/dL (9-23)
[2018-01-09 15:39] LABS: ALT (GPT) 13 IU/L (3-49)
[2018-01-09 15:40] LABS: LIPASE 33 U/L (1.0-51.0)
[2018-01-09 15:43] LABS: TROP-I INTERPRETATION NEGATIVE; TROPONIN-I 0.03 ng/mL (0.0-0.30)
[2018-01-09] MEDS ORDERED: CARDURA4 MG PO (16:45)
[2018-01-09 17:42] VITALS: BP 122/76
[2018-01-09 19:35] VITALS: BP 135/76
[2018-01-09 23:00] LABS: TROP-I INTERPRETATION NEGATIVE; TROPONIN-I 0.03 ng/mL (0.0-0.30)
[2018-01-10 05:45] LABS: TROP-I INTERPRETATION NEGATIVE; TROPONIN-I 0.02 ng/mL (0.0-0.30)
[2018-01-10 05:55] LABS: CHLORIDE 106 MEQ/L (99-109); CREATININE 1.3 MG/DL (0.6-1.3); GFR ESTIMATE (CALCULATED) > 59 mL/min/ (58.99-99999); GLUCOSE 116 mg/dL (70-99); POTASSIUM 3.9 MEQ/L (3.7-5.4); SODIUM 142 MEQ/L (136-147); UREA NITROGEN (BUN) 13 mg/dL (9-23)
[2018-01-10 07:50] VITALS: BP 113/69
[2018-01-10 11:34] VITALS: BP 112/64
== END 2018-01-10 14:35 | disposition home or self-care (01) ==
LOC: EME 14:17 → EDOF 16:16 → ENRESERV 16:24 → 4SOUTH 17:36
PROVIDERS: Emergency Medicine; Family Medicine
DX: R07.89 Other chest pain (principal); F41.9 Anxiety disorder, unspecified; I48.1 Persistent atrial fibrillation; I10 Essential (primary) hypertension; I27.20 Pulmonary hypertension, unspecified; E11.9 Type 2 diabetes mellitus without complications; E78.5 Hyperlipidemia, unspecified; G40.909 Epilepsy, unspecified, not intractable, without status epilepticus; G47.33 Obstructive sleep apnea (adult) (pediatric); E66.01 Morbid (severe) obesity due to excess calories; Z68.41 Body mass index [BMI] 40.0-44.9, adult; Z79.01 Long term (current) use of anticoagulants; Z79.4 Long term (current) use of insulin; F12.90 Cannabis use, unspecified, uncomplicated; Z82.49 Family history of ischemic heart disease and other diseases of the circulatory system; I42.2 Other hypertrophic cardiomyopathy; I25.2 Old myocardial infarction; Z86.73 Personal history of transient ischemic attack (TIA), and cerebral infarction without residual deficits; J44.9 Chronic obstructive pulmonary disease, unspecified; Z86.74 Personal history of sudden cardiac arrest; Z90.49 Acquired absence of other specified parts of digestive tract; Z88.1 Allergy status to other antibiotic agents; Z88.5 Allergy status to narcotic agent; Z91.048 Other nonmedicinal substance allergy status
CPT/HCPCS: 71045; 80048; 80053; 82948; 83690; 84484; 85025; 93005; 94640; 94640 76; 99202; G0378; J3010

== ENCOUNTER 2018-02-10 10:01 | Day surgery (SDC) | payer OTHER ==
[~2018-02-10] VITALS: Ht 180.3 cm; Wt 132.0 kg
== END 2018-02-10 16:00 | disposition home or self-care (01) ==
LOC: CATH 10:01
PROVIDERS: Internal Medicine Cardiovascular Disease
DX: I48.2 Chronic atrial fibrillation (principal); Z79.01 Long term (current) use of anticoagulants; R07.9 Chest pain, unspecified; I42.1 Obstructive hypertrophic cardiomyopathy; E78.5 Hyperlipidemia, unspecified; G47.33 Obstructive sleep apnea (adult) (pediatric); G40.909 Epilepsy, unspecified, not intractable, without status epilepticus; E11.9 Type 2 diabetes mellitus without complications; E66.01 Morbid (severe) obesity due to excess calories; Z68.41 Body mass index [BMI] 40.0-44.9, adult; Z86.73 Personal history of transient ischemic attack (TIA), and cerebral infarction without residual deficits; Z88.1 Allergy status to other antibiotic agents; Z88.5 Allergy status to narcotic agent
CPT/HCPCS: 82948; C1769; C1887; J1644; J2250; J3010

== ENCOUNTER 2018-03-13 13:02 | Emergency (ER) | payer OTHER ==
[~2018-03-13] VITALS: Ht 180.3 cm; Wt 129.5 kg
[2018-03-13] MEDS ORDERED: PERCOCET 5/31 TABLET PO (14:34)
[2018-03-13 14:47] VITALS: BP 145/88
== END 2018-03-13 14:49 | disposition home or self-care (01) ==
LOC: EXP 13:02 → EME 13:02 → EXP 14:49
DX: M25.562 Pain in left knee (principal); I10 Essential (primary) hypertension; E11.9 Type 2 diabetes mellitus without complications; E78.5 Hyperlipidemia, unspecified; R56.9 Unspecified convulsions; Z88.1 Allergy status to other antibiotic agents; Z88.5 Allergy status to narcotic agent; Z88.6 Allergy status to analgesic agent
CPT/HCPCS: 73564; J1885

== ENCOUNTER 2018-03-15 00:57 | Emergency (ER) | payer OTHER ==
[~2018-03-15] VITALS: Ht 180.3 cm; Wt 129.0 kg
[2018-03-15 01:40] VITALS: BP 145/100
== END 2018-03-15 01:45 | disposition home or self-care (01) ==
LOC: EME 00:57
DX: M25.562 Pain in left knee (principal); J45.909 Unspecified asthma, uncomplicated; I11.0 Hypertensive heart disease with heart failure; I50.9 Heart failure, unspecified; E11.9 Type 2 diabetes mellitus without complications; Z79.4 Long term (current) use of insulin; Z86.73 Personal history of transient ischemic attack (TIA), and cerebral infarction without residual deficits; Z79.01 Long term (current) use of anticoagulants
CPT/HCPCS: 99281; 99284

== ENCOUNTER 2018-03-18 00:35 | Emergency (ER) | payer OTHER ==
[~2018-03-18] VITALS: Ht 180.3 cm; Wt 130.0 kg
[2018-03-18 03:40] VITALS: BP 130/77
== END 2018-03-18 03:40 | disposition home or self-care (01) ==
LOC: EME 00:35
DX: M25.562 Pain in left knee (principal); G89.29 Other chronic pain; E11.9 Type 2 diabetes mellitus without complications; G47.30 Sleep apnea, unspecified; J45.909 Unspecified asthma, uncomplicated; I10 Essential (primary) hypertension; Z88.5 Allergy status to narcotic agent; Z88.1 Allergy status to other antibiotic agents; Z88.6 Allergy status to analgesic agent
CPT/HCPCS: 93971; J1885